=== PATIENT | male | born 1955 | race Caucasian/White ===

== ENCOUNTER 2016-12-03 10:49 | Inpatient (IN) | payer BC ==
--- NOTE | 2016-10-24 12:28 | PAT Medication Instructions ---
Service Date Oct 24, 2016. Current Home Medication List Fexofenadine Hcl (Beatrice Allergy), 1 TAB PO PRN Lisinopril (Prinivil), 20 MG PO QAM Meloxicam (Mobic), 15 MG PO QAM Montelukast Sodium (Montelukast Sodium), 1 TAB PO PRN Pantoprazole (Protonix), 40 MG PO QAM Tamsulosin Hcl (Flomax), 0.4 MG PO QAM [L Lysine], 1,000 MG PO PRN Medication Instructions For Your Scheduled Surgery - Check with your surgeon for instructions regarding: Meloxicam (Mobic), 15 MG PO QAM - Hold the following medications the morning of surgery: Lisinopril (Prinivil), 20 MG PO QAM Tamsulosin Hcl (Flomax), 0.4 MG PO QAM [L Lysine], 1,000 MG PO PRN Fexofenadine Hcl (Beatrice Allergy), 1 TAB PO PRN Montelukast Sodium (Montelukast Sodium), 1 TAB PO PRN - Take the following medications the morning of surgery with a sip of water: Pantoprazole (Protonix), 40 MG PO QAM If you have any questions please call us at [phone] or [phone] or [phone]
--- NOTE | 2016-10-24 13:17 | DIAGNOSTIC IMAGING REPORT ---
CHEST 2 VIEWS ROUTINE CLINICAL HISTORY: PAT preoperative evaluation COMPARISON STUDY: 03/07/2015 FINDINGS: The bones soft tissues and hemidiaphragms are normal. The cardiomediastinal silhouette is normal. The lungs are clear. The pulmonary vasculature is normal. IMPRESSION: Negative chest. The above report was generated using voice recognition software. It may contain grammatical, syntax or spelling errors. Electronically signed by: Torey Salas M.D. 10/24/2016 1:16 PM Dictated Date/Time: 10/24/2016 1:16 PM
[2016-10-24 13:59] LABS: BASO % 0.2 %; BASO ABS # 0.01 K/uL (0-0.2); COMPLETE YES; EOS % 2.1 %; HEMATOCRIT 43.2 % (42-52); IG% 0.2 %; LYMPH % 29.4 %; LYMPH ABS # 1.57 K/uL (1.2-3.4); MEAN CELL VOLUME 90.9 fL (80-100); MEAN CORPUSCULAR HEMOGLOBIN 30.1 pg (25-34); MEAN CORPUSCULAR HGB CONC 33.1 g/dl (32-36); MEAN PLATELET VOLUME 10.6 fL (7.4-10.4); MONO % 9.4 %; NEUT % 58.7 %; PLATELET COUNT 211 K/uL (130-400); RED BLOOD COUNT 4.75 M/uL (4.7-6.1); WHITE BLOOD COUNT 5.34 K/uL (4.8-10.8)
[2016-10-24 14:02] LABS: ESTIMATED AVERAGE GLUCOSE 117 mg/dl; HA1C FLAG Normal (Normal)
[2016-10-24 14:09] LABS: INR 0.9 (0.9-1.1); PARTIAL THROMBOPLASTIN RATIO 1.1; PROTHROMBIN TIME (PATIENT) 10.1 SECONDS (9.0-12.0)
[2016-10-24 14:18] LABS: BUN/CREATININE RATIO 31.2 (10-20); CALCIUM 8.8 mg/dl (8.5-10.1); CREATININE 0.9 mg/dl (0.60-1.40); POTASSIUM 3.7 mmol/L (3.5-5.1)
[2016-10-24 14:28] LABS: URINE APPEARANCE CLEAR (CLEAR); URINE BILIRUBIN NEG (NEG); URINE COLOR YELLOW; URINE EPITHELIAL CELL AUTO 0-5 /lpf (0-5); URINE NITRITE NEG (NEG); URINE SPECIFIC GRAVITY 1.023 (1.000-1.030); UROBILINOGEN NEG (NEG); ZZUR CULT IF INDIC CLEAN CATCH NO
[2016-10-24 14:33] LABS: MANUAL MICROSCOPIC REQUIRED? NO; REVIEW REQ? NO
--- NOTE | 2016-12-02 17:16 | HISTORY & PHYSICAL EXAMINATION ---
DATE OF ADMISSION: 12/03/2016 ADMISSION HISTORY AND PHYSICAL CHIEF COMPLAINT: Chronic right shoulder pain. HISTORY OF PRESENT ILLNESS: This is a 61-year-old male patient of Dr. Taveras'patrick complaining of chronic right shoulder pain, longstanding, now progressively getting worse. The patient has failed conservative treatment and wishes to proceed with a right shoulder resurfacing hemiarthroplasty and distal clavicle excision. PAST MEDICAL HISTORY: Hypertension, sleep apnea, osteoarthritis, spine problems, neck problems, sciatica, kidney stones. SOCIAL HISTORY: Nonsmoker, occasional drinker. PAST SURGICAL HISTORY: Tonsillectomy, 3 knee surgeries, 2 back surgeries, appendectomy, kidney stones, brain surgery and 3 shoulder surgeries. REVIEW OF SYSTEMS: The patient complains of chronic right shoulder pain. Otherwise, denies any shortness of breath, chest pain, nausea, vomiting or joint complaints. FAMILY HISTORY: Noncontributory. MEDICATIONS: Meloxicam 15 mg, tamsulosin 0.4 mg, lisinopril 20 mg, pantoprazole 40 mg, venlafaxine 180 mg, montelukast 10 mg, vitamin D3 and a lysine daily. ALLERGIES: No known drug allergies. He IS ALLERGIC TO GRASS TREE, OATS, cats, salmon, peas. PHYSICAL EXAMINATION: GENERAL: Well-developed, well-nourished 61-year-old male in no acute distress. He is alert and oriented x3 and pleasant. HEENT: Normocephalic, atraumatic. Extraocular motions are intact. Pupils are equal and reactive to light. HEART: Regular rate and rhythm, no murmurs appreciated. LUNGS: Clear. ABDOMEN: Soft, nontender, bowel sounds are present. EXTREMITIES: Right shoulder reveals active range of motion of 140 degrees of forward elevation, only 40 degrees of abduction. The patient has AC joint tenderness. He has crepitation with passive range of motion. He has 3+/5 for his strength globally. NEUROLOGIC: Neurovascularly, he is intact in his right upper extremity. DIAGNOSES: Right shoulder end-stage osteoarthritis and acromioclavicular osteoarthritis. He also has a history of hypertension, sleep apnea, osteoarthritis, spine problems, neck problems, sciatica, and kidney stones. PLAN: The patient was advised of his diagnosis. Indications, risks, benefits, and postop course have all been reviewed. The patient wishes to proceed with a right shoulder resurfacing hemiarthroplasty and distal clavicle excision. Necessary consent forms, preoperative testing and clearances will be obtained. LAVERNED
[~2016-12-03] VITALS: Ht 185.4 cm; Wt 102.7 kg
[2016-12-03] VITALS (7 sets, daily range): BP systolic 121–148; BP diastolic 79–98; PULSE 69–94; TEMP 36.4–36.7; O2SAT 90–95; Ht 185.4 cm; Wt 102.7 kg
[~2016-12-03 10:49] MED LIST: ACETAMINOPHEN 500 MG TAB PO SCH; CEFAZOLIN 2000 MG/60 ML D5W 60 ML IV SCH; CeleBREX 200 MG CAP PO SCH; DEXAMETHASONE 4 MG TAB PO SCH; FAMOTIDINE 20 MG TAB PO SCH; FEXO1TAB49 PO; GABAPENTIN 300 MG CAP PO SCH; L LYSINE PO; LACTATED RINGER'S 1000ML 1,000 ML IV SCH; LACTATED RINGER'S 1000ML IV SCH; LISI20TA3 PO; MELO7.5T5 PO; METOCLOPRAMIDE HCL 10 MG TAB PO SCH; MONT1TAB5 PO; PANT1TAB48 PO; ROPIVACAINE 0.5% 5 MG/ML 30 ML VIAL ONE; SCOPOLAMINE 1.5 MG TDSY TD SCH; TAMS0.4C38 PO
[2016-12-03] MEDS ORDERED: ATROPINE SULFATE 0.1 MG/ML 5ML SYR IV PRN (11:15)
[2016-12-03] MEDS ORDERED: FENTANYL CITRATE INJ 50 MCG/1 ML 2 ML VIAL IV PRN (11:15)
[2016-12-03] MEDS ORDERED: EpHEDrine SULFATE INJ 50 MG/ML AMP IV PRN (11:15)
[2016-12-03] MEDS ORDERED: ONDANSETRON INJ 2 MG/ML 2 ML VIAL IV PRN ×2 (11:15→18:15)
--- NOTE | 2016-12-03 13:27 | History & Physical Bridge Note ---
H&P Re-Evaluation Bridge Note: I have examined the patient, reviewed the History & Physical and in the interval since the performance of the History & Physical I have noted the following changes of clinical significance: No changes noted
[2016-12-03] MEDS ORDERED: BACITRACIN 50000 UNIT VIAL ONE (14:04)
[2016-12-03] MEDS ORDERED: EpINEphrine HCL INJ 1 MG/ML 5ML SYRINGE ONE (14:06)
[2016-12-03] MEDS ORDERED: MIDAZOLAM HCL 1 MG/ML 2ML VIAL ONE (14:08)
[2016-12-03] MEDS ORDERED: FENTANYL CITRATE INJ 50 MCG/1 ML 2 ML VIAL ONE ×2 (14:08→14:23)
[2016-12-03] MEDS ORDERED: LIDOCAINE HCL 2% 2 ML VIAL (20MG/ML) ONE (14:22)
[2016-12-03] MEDS ORDERED: PROPOFOL IV EMULSION 10 MG/ML 20 ML VIAL IV ONE (14:22)
[2016-12-03] MEDS ORDERED: ROCURONIUM BROMIDE 10 MG/ML 5 ML VIAL IV ONE (14:22)
[2016-12-03] MEDS ORDERED: ONDANSETRON INJ 2 MG/ML 2 ML VIAL ONE (15:32)
[2016-12-03] MEDS ORDERED: GLYCOPYRROLATE INJ 0.2 MG/ML VIAL ONE (15:32)
[2016-12-03] MEDS ORDERED: NEOSTIGMINE METHYLSULFATE 5 MG/5 ML SYR ONE (15:32)
[2016-12-03] MEDS ORDERED: DEXAMETHASONE SOD INJ 4 MG/ML VIAL ONE (15:32)
[2016-12-03] MEDS ORDERED: METOCLOPRAMIDE HCL INJ 5 MG/ML 2 ML VIAL ONE (15:32)
[2016-12-03] MEDS ORDERED: NALOXONE HCL 0.4 MG/1 ML VIAL/CARP IV PRN (18:15)
[2016-12-03] MEDS ORDERED: LYSINE 1000 MG PO SCH (18:15)
[2016-12-03] MEDS ORDERED: BISACODYL 10 MG SUPP PR PRN (18:15)
[2016-12-03] MEDS ORDERED: ZOLPIDEM TARTRATE 5 MG TAB PO PRN (18:15)
[2016-12-03] MEDS ORDERED: SOD PHOSPHATE/SOD BIPHOSPHATE ENEMA 132 ML BTL PR PRN (18:15)
[2016-12-03] MEDS ORDERED: MAGNESIUM HYDROXIDE SUSP 30 ML UDC PO PRN (18:15)
[2016-12-03] MEDS ORDERED: METOCLOPRAMIDE HCL INJ 5 MG/ML 2 ML VIAL IV PRN (18:15)
[2016-12-03] MEDS ORDERED: FEXOFENADINE HCL 180 MG TAB PO PRN (18:15)
--- NOTE | 2016-12-03 18:26 | [facility] Post Operative Brief Note ---
Immediate Operative Summary Operative Date Dec 03, 2016. Pre-Operative Diagnosis Right shoulder end-stage osteoarthritis and acromioclavicular osteoarthritis Post-Operative Diagnosis Right shoulder end-stage osteoarthritis and acromioclavicular osteoarthritis,biceps trendinopathy and glenoid labral tears Procedure(s) Performed Right Shoulder Resurfacing Yoni-Arthoplasty Distal Clavicle Excision, Right Bicep Tenodesis,labral debridement. Surgeon Dr. Taveras Customizer Surgeon(s) Torey Bowser PA-C Estimated Blood Loss 75ml Findings as above Specimens A: Right distal clavicle Drains 2 hemovac Anesthesia general and regional Disposition Recovery Room / PACU
--- NOTE | 2016-12-03 18:39 | Anesthesiology Progress Note ---
Anesthesia Post Op Note Date & Time Dec 03, 2016 at 18:39 Vital Signs Pain Intensity: 0 Vital Signs Past 12 Hours Date Time Temp Pulse Resp B/P (MAP) Pulse Ox O2 Delivery O2 Flow Rate FiO2 12/03/16 18:30 78 16 144/81 95 Oxymask 3 12/03/16 18:20 85 16 148/88 95 Oxymask 3 12/03/16 18:10 78 16 152/95 95 Oxymask 5 12/03/16 18:04 36.0 83 16 129/88 96 Oxymask 5 12/03/16 11:15 36.6 69 20 147/98 95 Room Air Notes Mental Status: alert / awake / arousable, participated in evaluation Pt Amnestic to Procedure: Yes Nausea / Vomiting: adequately controlled Pain: adequately controlled Airway Patency, RR, SpO2: stable & adequate BP & HR: stable & adequate Hydration State: stable & adequate Anesthetic Complications: no major complications apparent
--- NOTE | 2016-12-03 18:43 | DIAGNOSTIC IMAGING REPORT ---
R SHOULDER MIN 2 VIEWS ROUTINE CLINICAL HISTORY: Post shoulder surgery postoperative evaluation COMPARISON: None. DISCUSSION: Right shoulder hemiarthroplasty. Alignment is anatomic. Surgical drains are in position. Expected soft tissue postoperative change. IMPRESSION: Anatomic alignment status post right shoulder hemiarthroplasty. The above report was generated using voice recognition software. It may contain grammatical, syntax or spelling errors. Electronically signed by: Torey Salas M.D. 12/03/2016 6:42 PM Dictated Date/Time: 12/03/2016 6:41 PM
[2016-12-03] MEDS: MoRPHine SULFATE 2 MG/ML CARP IV PRN (19:24)
[2016-12-03] MEDS: D5W AND 1/2NSS + 20MEQ KCL 1,000 ML IV SCH (19:44)
[2016-12-03] MEDS: CHECK SCOPOLAMINE PATCH PLACEMENT SCH (19:44)
[2016-12-03] MEDS ORDERED: MONTELUKAST SOD 10 MG TAB PO PRN (21:00)
[2016-12-03] MEDS ORDERED: OXYCODONE HCL 10 MG TABCR (OXYCONTIN) PO SCH (21:00)
[2016-12-03] MEDS: DOCUSATE SODIUM 100 MG CAP PO SCH (21:03)
[2016-12-03] MEDS: CEFAZOLIN IV 2,000 MG in DEXTROSE 5% 50ML 50 ML IV SCH (22:27)
[2016-12-03] MEDS: ACETAMINOPHEN 500 MG TAB PO SCH (22:28)
--- NOTE | 2016-12-03 22:43 | Medical Consult ---
Consultation Date of Consultation: Dec 03, 2016. Attending Physician: Julio Cesar Taveras M.D. Reason for Consultation: Medical Management History of Present Illness Mr Mckeon is a pleasant 61 year old male with history of HTN, BPH, GERD, seasonal allergies, who is s/p a right shoulder resurfacing hemiarthroplasty and distal clavicle excision today. Primary team has consulted hospitalist service for medical management. The patient states at this time that feels overall well, notes some expected discomfort to the right shoulder that is overall well controlled with his current pain regimen. He denies any other complaints including chest pain, shortness of breath, coughing, wheezing, or palpitations. He notes a good appetite and was able to eat dinner without any difficulty. He is not passing gas and has not yet had a bowel movement. He denies any urinary symptoms at this time. A 10 point review of systems was negative unless stated above. Past Medical/Surgical History HTN BPH GERD Seasonal allergies Osteoarthritis Surgeries - Intracranial cyst excision - Lumbar spine surgery - Cervical spine surgery - Left shoulder surgery - Appendicectomy - Tonsillectomy Social History Smoking Status: Former Smoker Alcohol Use: occasionally Drug Use: none Marital Status: Housing Status: lives with family Occupation Status: employed Allergies Coded Allergies: Dog Dander (Verified Allergy, Unknown, CAT DOG DANDER-ITCHY EYES, STUFFY NOSE, 12/03/16) Grass (Verified Allergy, Unknown, GRASS,TREES CONGESTION, 12/03/16) NO KNOWN DRUG ALLERGIES (Verified Allergy, Unknown, NONE, 12/03/16) POLLEN (Verified Allergy, Unknown, ITCHY EYES, STUFFY NOSE, 12/03/16) Home Medications Reported Home Medications Medications Dose Route/Sig Max Daily Dose Days Date Category [L Lysine] 1,000 Mg PO PRN 10/24/16 Reported Beatrice Allergy (Fexofenadine Hcl) 180 Mg Tab 1 Tab PO PRN 14 10/24/16 Reported Mobic (Meloxicam) 7.5 Mg Tab 15 Mg PO QAM 10/24/16 Reported Montelukast Sodium 10 Mg Tab 1 Tab PO PRN 90 03/07/15 Reported Prinivil (Lisinopril) 20 Mg Tab 20 Mg PO QAM 03/07/15 Reported Protonix (Pantoprazole) 40 Mg Tab 40 Mg PO QAM 03/07/15 Reported Flomax (Tamsulosin Hcl) 0.4 Mg Cap 0.4 Mg PO QAM 03/07/15 Reported Current Inpatient Medications Current Inpatient Medications Medications (Trade) Dose Ordered Sig/Elliot Route Start Time Stop Time Status Last Admin Dose Admin Miscellaneous (Remove Transderm-Scop Patch) 1 ea Q72H N/A 12/06/16 06:00 12/06/16 06:01 Miscellaneous Information (Check Scopolamine Patch Placement) 1 ea QS N/A 12/03/16 16:00 12/06/16 05:59 12/03/16 19:44 1 EA Fexofenadine HCl (Beatrice Tab) 180 mg DAILY PRN PO 12/03/16 18:15 01/02/17 18:14 Lisinopril (Zestril Tab) 20 mg QAM PO 12/04/16 09:00 01/03/17 08:59 Montelukast Sodium (Singulair Tab) 10 mg HS PRN PO 12/03/16 21:00 01/02/17 20:59 Tamsulosin HCl (Flomax Cap) 0.4 mg QAM PO 12/04/16 09:00 01/03/17 08:59 Diphenhydramine HCl (Benadryl Cap) 25 mg Q8 PRN PO 12/03/16 18:15 01/02/17 18:14 Zolpidem Tartrate (Ambien Tab) 5 mg HSZ PRN PO 12/03/16 18:15 01/02/17 18:14 Metoclopramide HCl (Reglan Inj) 10 mg Q6H PRN IV 12/03/16 18:15 01/02/17 18:14 Ondansetron HCl (Zofran Inj) 4 mg Q6H PRN IV 12/03/16 18:15 01/02/17 18:14 Pantoprazole Sodium (Protonix Tab) 40 mg QAM PO 12/04/16 09:00 01/03/17 08:59 Potassium Chloride/Dextrose/ Sod Cl 1,000 ml @ 100 mls/hr Q10H IV 12/03/16 19:30 12/04/16 12:00 12/03/16 19:44 100 MLS/HR Oxycodone HCl (Roxicodone Immediate Rel Tab) `1-2 TABS FOR PAIN `1 TAB... Q4H PRN PO 12/03/16 18:15 12/17/16 18:14 Oxycodone HCl (Oxycontin Tab) 10 mg Q12 PO 12/03/16 21:00 12/17/16 20:59 12/03/16 21:03 10 MG Acetaminophen (Tylenol Tab) 1,000 mg Q8 PO 12/03/16 22:00 01/02/17 21:59 12/03/16 22:28 1,000 MG Morphine Sulfate (MoRPHine SULFATE INJ) 2 mg Q2H PRN IV 12/03/16 18:15 12/17/16 18:14 12/03/16 19:24 2 MG Naloxone HCl (Narcan Inj) 0.1 mg Q2M PRN IV 12/03/16 18:15 01/02/17 18:14 Magnesium Hydroxide (Milk Of Magnesia Susp) 30 ml Q6H PRN PO 12/03/16 18:15 01/02/17 18:14 Bisacodyl (Dulcolax Supp) 10 mg DAILY PRN IA 12/03/16 18:15 01/02/17 18:14 Sodium Biphosphate/ Sodium Phosphate (Fleet Enema) 132 ml DAILY PRN IA 12/03/16 18:15 01/02/17 18:14 Docusate Sodium (coLACE CAP) 100 mg BID PO 12/03/16 21:00 01/02/17 20:59 12/03/16 21:03 100 MG Multivitamins (Multivitamin Tab) 1 tab DAILY PO 12/04/16 09:00 01/03/17 08:59 Cefazolin Sodium 2000 mg/Dextrose 60 ml @ 100 mls/hr Q8H IV 12/03/16 22:00 12/04/16 06:35 12/03/16 22:27 100 MLS/HR Morphine Sulfate (MoRPHine SULFATE INJ) 4 mg Q2H PRN IV 12/03/16 19:00 12/17/16 18:59 Review of Systems A 10 point review of systems was negative unless stated above. Physical Exam Date Time Temp Pulse Resp B/P (MAP) Pulse Ox O2 Delivery O2 Flow Rate FiO2 12/03/16 21:47 36.4 93 17 121/81 (94) 91 Nasal Cannula 2.0 12/03/16 20:55 36.7 88 17 135/79 (97) 92 Room Air 12/03/16 19:50 36.6 80 17 138/84 (102) 91 Room Air 12/03/16 19:21 36.7 76 17 145/87 (106) 90 Room Air 12/03/16 18:55 Nasal Cannula 2.0 12/03/16 18:55 36.7 87 18 148/91 (110) 93 Nasal Cannula 2.0 12/03/16 18:55 93 Nasal Cannula 2.0 12/03/16 18:40 36.4 83 16 131/92 95 Nasal Cannula 2 12/03/16 18:30 78 16 144/81 95 Oxymask 3 12/03/16 18:20 85 16 148/88 95 Oxymask 3 12/03/16 18:10 78 16 152/95 95 Oxymask 5 12/03/16 18:04 36.0 83 16 129/88 96 Oxymask 5 12/03/16 11:15 36.6 69 20 147/98 95 Room Air General Appearance: WD/WN, no apparent distress Head: normocephalic, atraumatic Eyes: PERRL, EOMI ENT: hearing grossly normal, pharynx normal Neck: supple, no adenopathy, no JVD Respiratory/Chest: chest non-tender, no respiratory distress, + pertinent finding (biltarally mild diminished breath sounds) Cardiovascular: regular rate, rhythm, no gallop, no murmur Abdomen/GI: soft, no organomegaly, + pertinent finding (reduced bowel sounds) Back: no CVA tenderness, no muscle spasm Extremities/Musculoskelatal: normal inspection, no calf tenderness, no pedal edema, + pertinent finding (bandaged right shoudler with drain; bloody contents in drain) Neurologic/Psych: alert, normal mood/affect, oriented x 3 Skin: normal color, warm/dry, no rash Lymphatic: no adenopathy Laboratory Results Last 24 Hours Test 12/03/16 19:36 Assessment & Plan 61 year old male s/p right shoulder surgery today with distal clavicle resection. He is doing well with no acute issues at this time. Our recommendations are as follows Right Shoulder surgery with Distal clavicle resection - Per primary team - Recommend holding any NSAID use until repeat AM Cr shows stable renal function Hypertension - Repeat BMP in AM - Hold lisinopril until repeat Cr to ensure renal function is stable continue on BPH - Continue Flomax GERD - Continue Pantoprazole Seasonal Allergies - Continue home meds as needed DVT Prophylaxis - SCD Knee, RHONDA Hose - Pharmacological prophylaxis per primary team Disposition - Med/Surg - OT and PT evaluations per primary team Resident Physician Supervision Note: pt seen/examined independently. I discussed the case with the resident and agree with the findings and plan as documented in the note. Any exceptions or clarifications are listed here: 61 y/o M post R distal clavicle resection - we are asked to consult due to history of HTN and for post-op management Pain is well controlled post-op - denies N/V, SOB, lighthead OE AAO x 3 S1,2 R CATB NT, ND No CCE P: Will recheck BMP AM then restart HAI PT/OT to discretion of orthopedics Documented By: Tyrel Valdez
[2016-12-04] VITALS (8 sets, daily range): BP systolic 153–182; BP diastolic 87–104; PULSE 71–79; TEMP 36.5–37.3; O2SAT 93–96
[2016-12-04] MEDS: CHECK SCOPOLAMINE PATCH PLACEMENT SCH ×3 (00:02→16:00)
--- NOTE | 2016-12-04 01:01 | OPERATIVE REPORT ---
DATE OF OPERATION: 12/03/2016 INDICATION FOR PROCEDURE: The patient is a 61-year-old male with chronic progressive osteoarthritis in his right shoulder. He has osteoarthritis in both AC joint and glenohumeral joint, both grade 4, end stage, [id number]. He has good strength and intact rotator cuff. PREOPERATIVE DIAGNOSES: End-stage glenohumeral osteoarthritis, right shoulder, and end-stage acromioclavicular joint arthritis, right shoulder. POSTOPERATIVE DIAGNOSES: Same including significant biceps tendinopathy and osteophytes bicipital groove causing biceps impingement. Degenerative glenoid labral tear with unstable labral flaps. PROCEDURE: Right shoulder resurfacing hemiarthroplasty using the Arthrosurface humeral head component and biceps tenodesis and distal clavicle resection and glenoid labral tear debridement. SURGEON: Dr. Taveras. SPECIAL EFFECTS ARTIST: Torey Bowser PA-C. ANESTHESIA: Regional block and general. OPERATIVE PROCEDURE: The patient was taken to the operating room, anesthetized with regional block and general anesthetic. He was positioned on the operating room table in about 30-degree beach chair position. A towel roll was placed in the medial border of his right scapula. He was translated to the right side of the bed, so his shoulder could be manipulated off the bed as necessary. His head was placed on a foam headrest. He had protective eyewear placed. He had TEDs and SCDs placed. His right shoulder exam demonstrated 120 degrees forward elevation, 70 degrees of abduction, external rotation to about 40 degrees. He clearly had [id number] crepitation. He had prominent AC joint. After his shoulder was sterilely prepped and draped with ChloraPrep, an anterior deltopectoral approach was performed. A longitudinal incision was made in the deltopectoral interval. Skin was incised sharply. Subcutaneous flaps were elevated. The cephalic vein was dissected out and retracted laterally with the deltoid. Deltoid retracted laterally and pectoralis medially. The upper centimeter of the pectoralis was released for inferior exposure. The biceps tendon sheath was opened up and the patient had marked thickened biceps tenosynovitis extending into the bicipital groove where there was a large bone spur at the medial aspect of the bicipital groove. The biceps tendon was tenodesed to the pectoralis tendon with a [id number] #2 FiberWire suture and then proximal biceps was resected, the bicipital bone spurs were resected, and the thickened biceps tenosynovitis was resected. The bursa over the rotator cuff was resected and the rotator cuff was noted to be completely intact, although he did have joint effusion and some bulging in the area of the rotator interval due to synovitis in the joint. The clavipectoral fascia was divided at the lateral margin of conjoined tendon, extended up to the CA ligament which was preserved. The bursa over the subscapularis and rotator cuff were resected. A self-retaining retractor was placed. The circumflex vessels were identified, tied off with silk ties and divided laterally. The subscapularis muscle fibers were split at the level of the circumflex vessels, divided down to the capsule, reflected off the inferior capsule with a Kitner soft tissue elevator and a blunt Hohmann retractor was placed to protect the axillary nerve, the axillary nerve was identified with tug test. Another blunt Hohmann retractor was placed superiorly. Rotator interval was opened up and extended laterally. The subscapularis tendon was then taken down transtendinous incision, leaving a cup of tissue for repair on the lesser tuberosity. #1 Vicryl traction suture was placed into the subscapularis tendon. The capsule was then released off the neck of the inferior humerus and this revealed a large inferior humeral osteophyte extending from anterior to posterior. Blunt Hohmann retractor was readjusted and the humerus was gradually externally rotated to expose large osteophyte. This was removed with a series of artist chisels and rongeur, and the Hernandez elevator was used to release the inferior capsule off the neck of the humerus right at the articular margin area. At this time, the humeral head was retracted posterior to the glenoid to some extent to expose the glenoid. Glenoid had exposed bone, concentric wear. There was a very large flap at the posterior labrum that was torn, this was debrided. There were 2 flaps of the anterior labrum, those were debrided back to stable edge, and the remainder of the biceps tendon was released off the superior labrum and removed at this time. At this time, we did do an anterior capsular release because he had decreased external rotation. This capsule was released under direct visualization, leaving the labrum intact and the rotator interval was released down to the capsular release, so we had a 360-degree release of the subscapularis. The inferior capsule was left intact. The humerus was then exposed with retractors and the humerus was sized for a 56 x 52 mm humeral head. A drill hole was made into the central portion of the humeral head to match the wear pattern and centralized the location of the implant. We went ahead and placed a screw in position initially at appropriate depth for the reamer. Over the guidepin, we used the reamer for the 52 mm component down until it was fully seated. Excess osteophytes circumferentially removed with the rongeur, maintaining the intact rotator cuff. We also identified that there was no notching of the neck with full reaming. The trial was then placed in position and pinned in position. Then, we used the appropriate reamers to ream the central humeral head for the screw. The screw was then inserted into the central humeral head until seated at the appropriate depth. Then, all the bone debris was irrigated out of the joint copiously. With good fixation of the screw, we went ahead and placed on the final humeral head component after copiously irrigating the humeral head that was free of any debris. The final component was the Arthrosurface humeral head 56 x 52 mm and the tapered post that we had placed was the 12 mm tapered post. There was good tight press fit and good fixation of the Morrison taper on the screw. There was anatomic reconstruction of the articular surface. The humerus was reduced to the glenoid and then we took the arm through range of motion, there was good range of motion and stability. After copious irrigation, attention was then taken to the distal clavicle excision. A saber incision was made over the distal clavicle. Skin was incised sharply in a longitudinal fashion. Subcutaneous flaps were elevated. A transverse incision was made over the AC joint, the patient had hypertrophic AC joint. Subperiosteal dissection was performed around the distal clavicle. 1 cm distal clavicle was resected with an oscillating saw. All the osteophytes at the edges were smoothed down with a rongeur. After copious irrigation, the deltotrapezial fascia was repaired with [id number] #2 FiberWire sutures. I then repaired the subscapularis at this point. After copious irrigation of the joint again, subscapularis was repaired with 2 Healicoils for medial row fixation, 1 footprint for lateral fixation. We used horizontal mattress sutures with the Healicoils in the tails, 1 tail from each tied sutures was passed at 5.5 mm footprint laterally. We also did [id number] #2 FiberWire suture soft tissue repair for lateral row repair. We repaired the rotator interval in maximal external rotation with [id number] #2 FiberWire sutures. The repair was secured through about 55 degrees of external rotation, 90 degrees of abduction and 140-150 degrees of forward elevation. After further irrigation, the remainder of the pectoralis split was repaired with [id number] #2 FiberWire, reinforcing the biceps tenodesis, placing the sutures back through the biceps. Two Hemovac drains were placed. Subcutaneous tissues were closed with interrupted 2-0 Vicryl, skin was closed with teresita. Sterile dressings applied and a shoulder immobilizer was placed. Torey Bowser PA-C, was my food and beverage assistant manager. He functioned as child welfare assistant for the entire procedure. He assisted in patient positioning, prepping, draping, arm positioning, instrument management, soft tissue retraction throughout the procedure, and he performed the subcutaneous and skin closure and will participate in postoperative care of the patient. I attest to the content of the Intraoperative Record and any orders documented therein. Any exception s are noted below.
[2016-12-04] MEDS: MoRPHine SULFATE 2 MG/ML CARP IV PRN ×2 (02:30→04:02)
[2016-12-04] MEDS: OXYCODONE HCL IR 5 MG TAB (IMMEDIATE RELEASE) PO PRN ×3 (02:30→16:34)
[2016-12-04] MEDS: CEFAZOLIN IV 2,000 MG in DEXTROSE 5% 50ML 50 ML IV SCH (05:32)
[2016-12-04] MEDS: D5W AND 1/2NSS + 20MEQ KCL 1,000 ML IV SCH (05:33)
[2016-12-04] MEDS: ACETAMINOPHEN 500 MG TAB PO SCH ×3 (05:40→21:05)
[2016-12-04] MEDS: MoRPHine SULFATE 4 MG/ML 1 ML CARP\\VIAL IV PRN ×2 (06:05→10:48)
[2016-12-04 06:12] LABS: HEMATOCRIT 41.5 % (42-52); MEAN CORPUSCULAR HEMOGLOBIN 30.4 pg (25-34); MEAN CORPUSCULAR HGB CONC 33.7 g/dl (32-36); MEAN PLATELET VOLUME 10.1 fL (7.4-10.4); PLATELET COUNT 217 K/uL (130-400); RED BLOOD COUNT 4.61 M/uL (4.7-6.1); WHITE BLOOD COUNT 11.07 K/uL (4.8-10.8)
[2016-12-04 06:42] LABS: BUN/CREATININE RATIO 20.8 (10-20); CALCIUM 8.9 mg/dl (8.5-10.1); CREATININE 0.9 mg/dl (0.60-1.40); POTASSIUM 3.7 mmol/L (3.5-5.1)
--- NOTE | 2016-12-04 06:57 | Family Medicine Progress Note ---
Progress Note Date of Service Dec 04, 2016. Subjective Pt evaluation today including: conversation w/ patient, physical exam, chart review, lab review The patient was seen and examined at bedside. Post op Day #[address] Patient is resting comfortably in bed. Says his right shoulder was hurting him but after his pain meds the pain is tolerable . There is a drain in place draining bloody fluid. Plan of care was described to the patient and all questions were answered. 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), + problem reported (right should pain s/p procedure), No swelling, No calf pain Male : + problem reported (has peed, no montgomery in place, is ambulating), No dysuria Endo: No fatigue Objective Physical Exam General Appearance: WD/WN, no apparent distress ENT: normal ENT inspection Neck: supple, no JVD Respiratory/Chest: chest non-tender, lungs clear, normal breath sounds, no respiratory distress, no accessory muscle use Cardiovascular: regular rate, rhythm, no edema, no gallop, no JVD, no murmur Abdomen: normal bowel sounds, non tender, soft, no organomegaly, no pulsatile mass Extremities: normal range of motion, no pedal edema, no calf tenderness, + pertinent finding (defer exam of right shoulder to Dr. Taveras, appears normal post of pain and tenderness.) Neurologic/Psychiatric: no motor/sensory deficits, alert, normal mood/affect, oriented x 3 Skin: no rash Assessment and Plan 61M s/p right shoulder surgery today with distal clavicle resection on 2016. PCP is in [place]. Pt reports that most of his hospitilizations are MSK related (L knee replacement, R shoulder surgery). AM labs show excellent renal function. Pt is tolerating diet, ambulating, waiting for first BM, received Colace today. Pain is well controlled. Right Shoulder surgery with Distal clavicle resection - Per primary team - Can resume all NSAIDS. - Oxycodone 20mg BID PRN + Oxy 10mg Q4H PRN (1-2 tabs based on a pain scale) Hypertension - High post op, trending down. - Renal Function OK. - Restarted Lisinopril. - If DC today we will defer HTN management to primary care doctor in [place], elevated BP could be transiently reactive to pain. Do not want to overtreat BP. Pt has no HTN emergency symptoms (OBRIEN, photophobia, nausea, vomiting). BPH - Continue Flomax GERD - Continue Pantoprazole Seasonal Allergies - Continue home meds as needed DVT Prophylaxis - SCD Knee, RHONDA Hose - Pharmacological prophylaxis per primary team Disposition - Med/Surg - OT and PT evaluations per primary team FULL CODE Thank you for this consult. We will continue to follow. Resident Involvement: Resident Care Provided Care Provided: Adult Hospital Medicine
[2016-12-04] MEDS: LISINOPRIL 20 MG TAB PO SCH (07:23)
--- NOTE | 2016-12-04 08:21 | Orthopedic Progress Note ---
Orthopedic Progress Note Date of Service Dec 04, 2016. Subjective Post OP Day: 1 Reports: feeling well, Denies: chest pain, SOB, nausea / vomiting, light headedness, calf pain Additional Notes: Main c/o is pain this AM. BP elevated. Objective N/V intact, capillary refill less than 2 sec., dressing C/D/I, A&O x3 Sling in tact, Fingers mobile. Date Time Temp Pulse Resp B/P (MAP) Pulse Ox O2 Delivery O2 Flow Rate FiO2 12/04/16 07:57 172/104 (126) 12/04/16 07:18 36.6 78 16 182/101 (128) 93 Nasal Cannula 2.0 12/04/16 03:44 36.5 71 16 162/98 (119) 93 Nasal Cannula 2.0 12/03/16 23:35 Nasal Cannula 2.0 12/03/16 23:00 36.5 94 18 138/90 (106) 92 Nasal Cannula 2.0 12/03/16 21:47 36.4 93 17 121/81 (94) 91 Nasal Cannula 2.0 12/03/16 20:55 36.7 88 17 135/79 (97) 92 Room Air 12/03/16 19:50 36.6 80 17 138/84 (102) 91 Room Air 12/03/16 19:21 36.7 76 17 145/87 (106) 90 Room Air 12/03/16 18:55 Nasal Cannula 2.0 12/03/16 18:55 36.7 87 18 148/91 (110) 93 Nasal Cannula 2.0 12/03/16 18:55 93 Nasal Cannula 2.0 12/03/16 18:40 36.4 83 16 131/92 95 Nasal Cannula 2 12/03/16 18:30 78 16 144/81 95 Oxymask 3 12/03/16 18:20 85 16 148/88 95 Oxymask 3 12/03/16 18:10 78 16 152/95 95 Oxymask 5 12/03/16 18:04 36.0 83 16 129/88 96 Oxymask 5 12/03/16 11:15 36.6 69 20 147/98 95 Room Air Laboratory Results 24 Hours: Test 12/04/16 05:43 Hematocrit 41.5 % Hemoglobin 14.0 g/dL Assessment & Plan Assessment: POD #1, Right shoulder resurfacing hemiarthroplasty, biceps tenodesis, DCE Plan: PT/ OT D/C planning- Home w OPPT when stable. As per medicine HTN Inhouse Planning Pain Management: Oxycontin, Morphine, PO Tylenol, Oxy IR DVT Prophylaxis: TEDs, SCDs Discharge Planning Discharge Planning: home with oppt Pain Management: Oxycontin, PO Tylenol, Oxy IR DVT Prophylaxis: TEDs Therapy: Physical Therapy, Occupational Therapy
--- NOTE | 2016-12-04 08:23 | Discharge Instructions ---
Discharge Instructions Date of Service Dec 04, 2016. Admission Reason for Admission: Right Shoulder Degenerative Joint Disease Discharge Discharge Diagnosis / Problem: Right shoulder resurfacing hemiarthroplasty, DCE , biceps tenodesis Discharge Goals Goal(s): Improve function Activity Recommendations Activity Limitations: as noted below . Instructions / Follow-Up Instructions / Follow-Up ACTIVITY RECOMMENDATIONS: SELF CARE INSTRUCTIONS AFTER TOTAL SHOULDER ARTHROPLASTY A. You may do daily exercises as taught in physical therapy while in hospital. No lifting with the operative arm. Please schedule your outpatient physical therapy appointment to begin within 2-3 days after leaving the hospital. Specific restrictions will be written on your physical therapy prescription that is provided to you. B. You are to wear your sling/immobilizer at all times EXCEPT when performing your daily exercises, participating in physical therapy and for hygiene purposes. C. You may perform dry, daily dressing changes. Please keep your incision covered. You may shower 48 hours after surgery. Do not apply soap or any ointment/ lotions directly over incision. Do not soak incision in bath tub/swimming pool. D. You may use ice as needed to operative shoulder. SPECIAL CARE INSTRUCTIONS: MEDICATION INSTRUCTIONS: *It is recommended you take Aspirin 325mg daily for four weeks post-op. VERY IMPORTANT TO READ AND REVIEW A. There are a few signs you need to watch for after you are home. Call [facility] at [phone] if you experience any of the followin. Increased severe shoulder pain. Some pain is expected especially when you exercise. 2. Increased swelling in you shoulder or arm; pain or swelling in either upper extremity. 3. Any fluid drainage from the incision. 4. Shortness of breath or chest pain. B. Please call [facility] at [phone] if you have any questions or concerns about your operation or recovery. C. Call your physician if: 1. Temperature is greater than 101 degrees (F). 2. Pain is not relieved by prescribed pain medications. 3. Increase drainage or redness from incision. 4. Unanswered questions or concerns. FOLLOW UP VISIT: Please call [facility] at [phone] to schedule a follow up appointment with Dr. Taveras or his PA in 12-14 days from your surgery date. Current Hospital Diet Patient's current hospital diet: Regular Diet Discharge Diet Recommended Diet: Regular Diet Procedures Procedures Performed: Right Shoulder Resurfacing Yoni-Arthoplasty Distal Clavicle Excision, Right Bicep Tenodesis,labral debridement. Pending Studies Studies pending at discharge: no Laboratory Results Hemoglobin A1c Test 10/24/16 12:39 Range/Units Estimated Average Glucose 117 mg/dl Hemoglobin A1c 5.7 H 4.5-5.6 % Medical Emergencies . Who to Call and When: Medical Emergencies: If at any time you feel your situation is an emergency, please call 911 immediately. . Non-Emergent Contact Non-Emergency issues call your: Primary Care Provider . "Provider Documentation" section prepared by Torey Bowser. . VTE Core Measure Inpt VTE Proph given/why not?: Keri Michele, SCD's [place] Drug Monitoring Program Search Results: patient reviewed within database, no issues identified
[2016-12-04] MEDS ORDERED: RXC5 PO (08:26)
[2016-12-04] MEDS ORDERED: OXYSR10 PO (08:26)
[2016-12-04] MEDS ORDERED: ACET-24 PO (08:26)
[2016-12-04] MEDS: TAMSULOSIN HCL 0.4 MG CAP PO SCH (08:39)
[2016-12-04] MEDS: DOCUSATE SODIUM 100 MG CAP PO SCH ×2 (08:39→21:04)
[2016-12-04] MEDS: MULTIVITAMIN TAB PO SCH (08:40)
[2016-12-04] MEDS: PANTOprazole SOD 40 MG TAB PO SCH (08:40)
[2016-12-04] MEDS: OXYCODONE HCL 20 MG TABCR (OXYCONTIN) PO SCH ×2 (08:50→21:04)
[2016-12-04] MEDS ORDERED: PANTOprazole SOD 40 MG TAB PO SCH (09:00)
--- NOTE | 2016-12-04 12:23 | Anesthesiology Progress Note ---
Anesthesia Post Op Note Date & Time Dec 04, 2016 at 12:23 Vital Signs Pain Intensity: 6.0 Vital Signs Past 12 Hours Date Time Temp Pulse Resp B/P (MAP) Pulse Ox O2 Delivery O2 Flow Rate FiO2 12/04/16 11:09 37.3 78 16 157/90 (112) 93 Room Air 12/04/16 08:32 158/92 (114) 12/04/16 08:32 Room Air 12/04/16 07:57 172/104 (126) 12/04/16 07:18 36.6 78 16 182/101 (128) 93 Nasal Cannula 2.0 12/04/16 03:44 36.5 71 16 162/98 (119) 93 Nasal Cannula 2.0 Notes Mental Status: alert / awake / arousable, participated in evaluation Pt Amnestic to Procedure: Yes Nausea / Vomiting: adequately controlled Pain: adequately controlled Airway Patency, RR, SpO2: stable & adequate BP & HR: stable & adequate Hydration State: stable & adequate Anesthetic Complications: no major complications apparent
[2016-12-05] MEDS: CHECK SCOPOLAMINE PATCH PLACEMENT SCH ×2 (00:08→08:58)
[2016-12-05] MEDS: ACETAMINOPHEN 500 MG TAB PO SCH (05:50)
[2016-12-05 06:45] LABS: HEMATOCRIT 39.5 % (42-52); MEAN CORPUSCULAR HEMOGLOBIN 30.3 pg (25-34); MEAN CORPUSCULAR HGB CONC 33.7 g/dl (32-36); MEAN PLATELET VOLUME 10.2 fL (7.4-10.4); PLATELET COUNT 201 K/uL (130-400); RED BLOOD COUNT 4.39 M/uL (4.7-6.1); WHITE BLOOD COUNT 9.25 K/uL (4.8-10.8)
[2016-12-05 07:06] LABS: BUN/CREATININE RATIO 24.1 (10-20); CALCIUM 8.5 mg/dl (8.5-10.1); CREATININE 0.76 mg/dl (0.60-1.40); POTASSIUM 3.3 mmol/L (3.5-5.1)
[2016-12-05 07:23] VITALS: BP 128/80; PULSE 116; TEMP 36.8; O2SAT 94
--- NOTE | 2016-12-05 08:10 | Orthopedic Progress Note ---
Orthopedic Progress Note Date of Service Dec 05, 2016. Subjective Post OP Day: 2 Reports: feeling well, pain controlled w PO medications, Denies: complaints, chest pain, SOB, nausea / vomiting, light headedness, calf pain Additional Notes: BP stable this AM Objective N/V intact, capillary refill less than 2 sec., incision C/D/I, A&O x3 Sling in tact, fingers mobile. Date Time Temp Pulse Resp B/P (MAP) Pulse Ox O2 Delivery O2 Flow Rate FiO2 12/05/16 07:23 36.8 116 19 128/80 (96) 94 Room Air 12/04/16 23:18 Room Air 12/04/16 22:45 36.9 79 18 153/88 (109) 96 Room Air 12/04/16 15:50 Room Air 12/04/16 14:52 36.8 78 17 167/93 (117) 93 Room Air 12/04/16 11:09 37.3 78 16 157/90 (112) 93 Room Air 12/04/16 08:32 158/92 (114) 12/04/16 08:32 Room Air Laboratory Results 24 Hours: Test 12/05/16 06:11 Hematocrit 39.5 % Hemoglobin 13.3 g/dL Assessment & Plan Assessment: POD #2, Right shoulder resurfacing hemiarthroplasty, biceps tenodesis, DCE Plan: PT/ OT D/C planning- Home w OPPT today. As per medicine HTN Inhouse Planning Pain Management: Oxycontin, Morphine, PO Tylenol, Oxy IR DVT Prophylaxis: TEDs, SCDs Discharge Planning Discharge Planning: home with oppt Pain Management: Oxycontin, PO Tylenol, Oxy IR DVT Prophylaxis: TEDs Therapy: Physical Therapy, Occupational Therapy
[2016-12-05] MEDS: TAMSULOSIN HCL 0.4 MG CAP PO SCH (08:59)
[2016-12-05] MEDS: MULTIVITAMIN TAB PO SCH (08:59)
[2016-12-05] MEDS: DOCUSATE SODIUM 100 MG CAP PO SCH (08:59)
[2016-12-05] MEDS: PANTOprazole SOD 40 MG TAB PO SCH (09:00)
[2016-12-05 09:02] VITALS: BP 147/92; PULSE 84
[2016-12-05] MEDS: LISINOPRIL 20 MG TAB PO SCH (09:02)
[2016-12-05] MEDS: OXYCODONE HCL 20 MG TABCR (OXYCONTIN) PO SCH (09:07)
[2016-12-05 10:33] VITALS: BP 147/92; PULSE 84; TEMP 36.8; O2SAT 94
[2016-12-05] MEDS ORDERED: POTASSIUM CHLORIDE 20 MEQ TABCR PO ONE (12:15)
[2016-12-05] MEDS: OXYCODONE HCL IR 5 MG TAB (IMMEDIATE RELEASE) PO PRN (12:31)
--- NOTE | 2016-12-05 15:50 | Family Medicine Progress Note ---
Progress Note Date of Service Dec 05, 2016. Subjective Pt evaluation today including: conversation w/ patient, physical exam, chart review, lab review The patient was seen and examined at bedside. Post op Day #2. Patient is resting comfortably in bed. R shoulder pain is now 1/10. Plan of care was described to the patient and all questions were answered. 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), + problem reported (right should pain s/p procedure), No swelling, No calf pain Male : + problem reported (has peed, no montgomery in place, is ambulating), No dysuria Endo: No fatigue Objective Physical Exam Notes: General Appearance: WD/WN, no apparent distress ENT: normal ENT inspection Neck: supple, no JVD Respiratory/Chest: chest non-tender, lungs clear, normal breath sounds, no respiratory distress, no accessory muscle use Cardiovascular: regular rate, rhythm, no edema, no gallop, no JVD, no murmur Abdomen: normal bowel sounds, non tender, soft, no organomegaly, no pulsatile mass Extremities: normal range of motion, no pedal edema, no calf tenderness, + pertinent finding (pain while moving the R. arm) Neurologic/Psychiatric: no motor/sensory deficits, alert, normal mood/affect, oriented x 3 Skin: no rash Assessment and Plan 61M s/p right shoulder surgery today with distal clavicle resection on 2016. PCP is in [place]. Pt reports that most of his hospitilizations are MSK related (L knee replacement, R shoulder surgery). AM labs show excellent renal function. Pt is tolerating diet, ambulating, waiting for first BM, received Colace today. Pain is well controlled. BP improved today, baseline is 120/80s. Right Shoulder surgery with Distal clavicle resection - Per primary team - Can resume all NSAIDS. - Oxycodone 20mg BID PRN + Oxy 10mg Q4H PRN (1-2 tabs based on a pain scale) Hypertension - High post op, trending down. - Renal Function OK. - Restarted Lisinopril. - New changed to BP regime, expect BP to normalize once pain goes away. - Recommend PCP follow up for BP in 3-4 weeks. BPH - Continue Flomax GERD - Continue Pantoprazole Seasonal Allergies - Continue home meds as needed DVT Prophylaxis - SCD Knee, RHONDA Hose - Pharmacological prophylaxis per primary team Disposition - Med/Surg - OT and PT evaluations per primary team - Cleared from medicine perspective. FULL CODE Resident Involvement: Resident Care Provided Care Provided: Adult Hospital Medicine
== END 2016-12-05 13:07 | disposition home or self-care (01) | DRG 483 ==
LOC: C.ACU 10:49 → C.MSN 13:17 → ENRESERV 18:39
PROVIDERS: ADMIT Orthopaedic Surgery Sports Medicine; ATTEND Orthopaedic Surgery Sports Medicine
PROC: 0LM10ZZ Reattachment of Right Shoulder Tendon, Open Approach (ICD-10-PCS; principal; 2016-12-03 13:00)
PROC: 0RRJ0J6 Replacement of Right Shoulder Joint with Synthetic Substitute, Humeral Surface, Open Approach (ICD-10-PCS; principal; 2016-12-03 13:00)
PROC: 0PB90ZZ Excision of Right Clavicle, Open Approach (ICD-10-PCS; principal; 2016-12-03 13:00)
DX: M19.011 Primary osteoarthritis, right shoulder (principal); M65.811 Other synovitis and tenosynovitis, right shoulder; I10 Essential (primary) hypertension; G47.30 Sleep apnea, unspecified; Z79.899 Other long term (current) drug therapy; N40.0 Benign prostatic hyperplasia without lower urinary tract symptoms; K21.9 Gastro-esophageal reflux disease without esophagitis

== ENCOUNTER 2018-12-24 05:43 | Inpatient (IN) ==
--- NOTE | 2018-11-22 16:47 | PAT Medication Instructions ---
Medication Instructions Date of Service November 22, 2018 Home Medications lisinopril 20 mg PO QAM meloxicam 15 mg PO QAM pantoprazole 40 mg PO QAM tamsulosin 0.4 mg PO QAM ASK your surgeon for instructions meloxicam 15 mg PO QAM DO NOT take the morning of surgery lisinopril 20 mg PO QAM Take morning of surgery With a small sip of water, OTHERWISE NOTHING TO EAT OR DRINK AFTER MIDNIGHT: pantoprazole 40 mg PO QAM tamsulosin 0.4 mg PO QAM Other Notes If you have any questions please call us at [phone] or [phone] or [phone] or [phone]
--- NOTE | 2018-11-23 11:47 | Anesthesiology Consultation ---
Date of Service November 23, 2018 Assessment & Plan (1) Encounter for pre-operative examination: Chart Review Chart Review: Pending: Refer to Additional Notes / Consult section (pending preop testing (labs, EKG, CXR)) and Patient seen in Pre Admission Testing Teaching & Discussion Pre-Anesthesia Teaching/Discussion Notes: Instructed NPO after midnight before surgery,except medications with 15 cc of water. Medication instructions prov ided according to the PAT guidelines. History Surgery Operation Date: 12/24/18 07:30 Proposed Procedures p Right Total Knee Arthroplasty - Ed Griffith DO Height/Weight Height: 6 ft 1 in Weight: 107.1 kg Allergies Allergy/AdvReac Type Severity Reaction Status Date / Time dog dander Allergy Unknown CAT DOG Verified 11/22/18 08:36 DANDER-ITCHY EYES, STUFFY NOSE grass pollen-perennial rye, Allergy Unknown GRASS,TREES Verified 11/22/18 08:36 standar CONGESTION No Known Drug Allergies Allergy Unknown NONE Verified 11/22/18 08:36 pollen extracts Allergy Unknown ITCHY Verified 11/22/18 08:36 EYES, STUFFY NOSE Medications Home Medications Medication Instructions Recorded Confirmed Last Taken lisinopril 20 mg PO QAM 11/22/18 11/22/18 Unknown meloxicam 15 mg PO QAM 11/22/18 11/22/18 Unknown pantoprazole 40 mg PO QAM 11/22/18 11/22/18 Unknown tamsulosin 0.4 mg PO QAM 11/22/18 11/22/18 Unknown Past Medical History Medical History History of anxiety History of kidney stones Hypertension Osteoarthritis on PPI preventative while on NSAIDs Sleep apnea did not tolerate device; s/p UPPP Exercise / Class Metabolic Activity II 4-5 Yardwork/Stairs/Walk up hill Past Family History Family History Mother Family history of diabetes mellitus (DM) Past Surgical History Surgical History History of appendectomy History of arthroscopy of left knee History of arthroscopy of left shoulder History of arthroscopy of right knee History of arthroscopy of right shoulder History of back surgery X2 LOWER BACK History of brain surgery X2 - DERMOID CYSTS REMOVED History of colonoscopy History of neck surgery DISC OUT/HARDWARE IN History of toe surgery RIGHT BIG TOE History of tonsillectomy History of total left knee replacement (TKR) History of total replacement of left shoulder joint History of total replacement of right shoulder joint History of urologic surgery KIDNEY STONES REMOVED History of uvulopalatopharyngoplasty LASERED OFF UVULA Past Anesthesia History No Hx of Anesthesia Complications (except PONV (no issues when scope patch used)) and No Family Hx of Anesthesia Complications History of PONV No Hx of Motion Sickness and History of PONV (no issues with scope patch used) Social History Smoking Status: Former smoker Do You Dip or Chew Tobacco: No Smoking End Date: QUIT 30 YRS AGO Hx Alcohol Use: Yes Alcohol type: beer alcohol intake frequency: a few times a week Alcohol Intake Frequency Comment: 6 PACK/WEEK Hx Substance Use: No substance use type: does not use Review of Systems Patient denies chest pain, shortness of breath, dyspnea on exertion, reflux, cough, wheezing, palpitations. Physical Exam Vital Signs VITALS BP 159/92 P 55 TEMP 98.1 SP02 96%RA RESP 16 PHYSICAL Full neck and c-spine range of motion. Full TMJ range of motion. TMD 3 finger breaths Mallampati Score 2 Dentition: intact Lungs: clear throughout to auscultation Cardiac: regular rate and rhythm, no murmurs noted Spine: normal Carotid arteries: negative bruit Extremities: no edema
--- NOTE | 2018-11-23 12:58 | XRay Report ---
XR chest Pre-admission PA/Lat CLINICAL HISTORY: Preoperative evaluation. COMPARISON STUDY: Chest radiograph October 24, 2016. FINDINGS: Lung volumes are at the upper limits of normal. Lungs are clear. There is no pneumothorax o r pleural effusion. Cardiac size is normal. Mediastinal contours are normal. There is no evidence for pulmonary edema. Incidental note is made of a left shoulder arthroplasty and anterior cervical spine fusion. IMPRESSION: No acute cardiopulmonary findings. Electronically signed by: David Hawthorne M.D. 11/23/2018 12:57 PM
[2018-11-23 13:19] LABS: Basophils # (auto) 0.01 K/uL (0-0.2); Basophils % (auto) 0.2 %; Eosinophils # (auto) 0.14 K/uL (0-0.5); Eosinophils % (auto) 2.4 %; Hematocrit (blood only) 41.3 % (42-52); Hemoglobin 14.2 g/dL (14.0-18.0); Immature Granulocytes # (auto) 0.01 K/uL (0.00-0.02); Immature Granulocytes % (auto) 0.2 %; Lymphocytes # (auto) 1.74 K/uL (1.2-3.4); Lymphocytes % (auto) 29.7 %; Mean Corpuscular Hemoglobin 31.1 pg (25-34); Mean Corpuscular Hgb Conc 34.4 g/dL (32-36); Mean Corpuscular Volume 90.6 fL (80-100); Mean Platelet Volume 10.4 fL (7.4-10.4); Monocytes # (auto) 0.48 K/uL (0.11-0.59); Monocytes % (auto) 8.2 %; Neutrophils # (auto) 3.48 K/uL (1.4-6.5); Neutrophils % (auto) 59.3 %; Platelet Count 184 K/uL (130-400); RDW Coefficient of Variation 13.8 % (11.5-14.5); RDW Standard Deviation 45.9 fL (36.4-46.3); Red Blood Count 4.56 M/uL (4.7-6.1); White Blood Count 5.86 K/uL (4.8-10.8)
[2018-11-23 13:28] LABS: Albumin Level 3.9 gm/dl (3.4-5.0); Creatinine Clr Calc Pharmacy 97.4 ml/min; Est GFR (Non-African American) 79.3; Potassium 3.7 mmol/L (3.5-5.1)
[2018-11-23 13:29] LABS: Estimated Average Glucose 123 mg/dl; Hemoglobin A1C 5.9 % (4.5-5.6)
[2018-11-23 13:31] LABS: Partial Thromboplastin Time 26.8 Seconds (21.0-31.0); Prothrombin Time 10.2 Seconds (9.0-12.0)
[2018-11-23 13:31] LABS: Appearance Urine Clear (Clear); Bacteria Urine Automated Negative (Negative); Bilirubin Urine Negative (Negative); Blood Urine 2+ (Negative); Cast Urine Automated 0 /lpf (0-5); Color Urine Yellow; Epithelial Cell Urine Auto 0-5 /lpf (0-5); Glucose Urine UA Negative (Negative); Ketones Urine Negative (Negative); Leukocyte Esterase Urine Negative (Negative); Nitrite Urine Negative (Negative); Protein Urine Negative (Negative); RBC Urine Automated 0-4 /hpf (0-4); Specific Gravity Urine 1.022 (1.000-1.030); Urobilinogen Urine Negative (Negative); WBC Urine Automated 0 /hpf (0-5)
--- NOTE | 2018-12-23 19:33 | History & Physical Report ---
Date of Service December 23, 2018 Assessment & Plan (1) Osteoarthritis of right knee: Schedule a right TKA for 12.24.18. All potential risks, benefits, complications, alternatives, and rehab have been discussed with the patient and he wishes to proceed. Plan for outpatient PT with ASA 81 mg BID x 30 days for DVT prophylaxis. History of Present Illness Chief Complaint: right knee pain Primary Care Provider: Geo Barker MD This is a patient with chronic right knee pain for multiple years. He had been treated conservatively for knee osteoarthritis, however he has failed all conservative management. He is now being set up for surgical tx. Allergies Allergy/AdvReac Type Severity Reaction Status Date / Time dog dander Allergy Unknown CAT DOG Verified 11/22/18 08:36 DANDER-ITCHY EYES, STUFFY NOSE grass pollen-perennial rye, Allergy Unknown GRASS,TREES Verified 11/22/18 08:36 standar CONGESTION No Known Drug Allergies Allergy Unknown NONE Verified 11/22/18 08:36 pollen extracts Allergy Unknown ITCHY Verified 11/22/18 08:36 EYES, STUFFY NOSE Home Medications Home Medications Medication Instructions Recorded Confirmed Type lisinopril 20 mg PO QAM 11/22/18 11/22/18 History meloxicam 15 mg PO QAM 11/22/18 11/22/18 History pantoprazole 40 mg PO QAM 11/22/18 11/22/18 History tamsulosin 0.4 mg PO QAM 11/22/18 11/22/18 History Past Med/Surg History Medical History History of anxiety History of kidney stones Hypertension Osteoarthritis on PPI preventative while on NSAIDs Sleep apnea did not tolerate device; s/p UPPP Surgical History History of appendectomy History of arthroscopy of left knee History of arthroscopy of left shoulder History of arthroscopy of right knee History of arthroscopy of right shoulder History of back surgery X2 LOWER BACK History of brain surgery X2 - DERMOID CYSTS REMOVED History of colonoscopy History of neck surgery DISC OUT/HARDWARE IN History of toe surgery RIGHT BIG TOE History of tonsillectomy History of total left knee replacement (TKR) History of total replacement of left shoulder joint History of total replacement of right shoulder joint History of urologic surgery KIDNEY STONES REMOVED History of uvulopalatopharyngoplasty LASERED OFF UVULA Family History Mother Family history of diabetes mellitus (DM) Social History Preferred Language: Armenian Communication Ability: Effective Cartography Supervisor Required: No Beliefs That Will Affect Care: None Current Living Situation: Spouse and Family Other Information That Helps Us Care for You: No Feels Safe at Home: Yes Smoking Status: Former smoker Do You Dip or Chew Tobacco: No ; Smoking End Date: QUIT 30 YRS AGO ; Hx Alcohol Use: Yes Alcohol type: beer Hx Substance Use: No Physical Exam Constitutional: well developed and well nourished; no acute distress ENMT: external ear and nose normal, oropharynx normal Neck: trachea midline, no thyromegaly Respiratory: normal respiratory effort, lungs clear to auscultation Cardiovascular: Rate/Rhythm: regular rate and regular rhythm Gastrointestinal (Abdomen): normal bowel sounds, soft, nontender, no hepatosplenomegaly Musculoskeletal: Gait: + limp (right side) Knee: + effusion (right), + knee ROM with crepitation (right knee) and + joint line tenderness (medial and lateral joint spaces right knee); no deformity, no skin erythema and no ecchymosis Skin: no rashes, warm and dry Neurologic: normal touch/pain/proprioception Psychiatric: A+Ox3, euthymic affect Lymphatic: no cervical or axillary lymphadenopathy
[2018-12-24] MEDS ORDERED: FAMOTIDINE 20 MG TAB PO SCH (06:00)
[2018-12-24] MEDS ORDERED: CeleBREX 200 MG CAP PO SCH (06:00)
[2018-12-24] MEDS ORDERED: GABAPENTIN 600 MG DOSE PO SCH (06:00)
[2018-12-24] MEDS ORDERED: METOCLOPRAMIDE HCL 10 MG TABLET PO SCH (06:00)
[2018-12-24] MEDS ORDERED: LR 500ML BOLUS, THEN 15ML/HR IV SCH (06:00)
[2018-12-24] MEDS ORDERED: CEFAZOLIN 2000MG 2,000 MG/15 ML SYR IV SCH (06:00)
[2018-12-24] MEDS ORDERED: ACETAMINOPHEN 500 MG TAB PO SCH (06:00)
[2018-12-24] MEDS ORDERED: dexAMETHasone 4 MG TAB PO SCH (06:00)
[2018-12-24] MEDS ORDERED: BUPIVACAINE 0.5 % 5 MG/1 ML PF 10ML VIAL ONE (06:14)
[2018-12-24] MEDS ORDERED: ROPIVACAINE 0.5% 5 MG/ML 30 ML VIAL ONE (06:15)
[2018-12-24] MEDS ORDERED: MIDAZOLAM HCL 1 MG/ML 2ML VIAL ONE (06:57)
[2018-12-24] MEDS ORDERED: ONDANSETRON INJ 2 MG/ML 2 ML VIAL ONE (06:57)
[2018-12-24] MEDS ORDERED: fentaNYL citrate 100 MCG/2 ML VIAL ONE (06:57)
[2018-12-24] MEDS ORDERED: PROPOFOL IV EMULSION 10 MG/ML 20 ML VIAL IV ONE ×4 (06:57→09:52)
[2018-12-24] MEDS ORDERED: LIDOCAINE HCL 2% 2 ML VIAL/AMP(20MG/ML) INFIL ONE (06:57)
[2018-12-24] MEDS ORDERED: SCOPOLAMINE 1.5 MG TDSY ONE (07:02)
[2018-12-24] MEDS ORDERED: SCOPOLAMINE 1.5 MG TDSY TD ONE (07:03)
[2018-12-24] MEDS ORDERED: ONDANSETRON INJ 2 MG/ML 2 ML VIAL IV PRN ×2 (07:07→11:38)
[2018-12-24] MEDS ORDERED: ATROPINE SULFATE 0.1 MG/ML 10ML SYR IV PRN (07:07)
[2018-12-24] MEDS ORDERED: ePHEDrine sulfate 50 MG/ML AMP IV PRN (07:07)
[2018-12-24] MEDS ORDERED: HYDROmorphone INJ 1 MG/ML SYRINGE IV PRN (07:07)
[2018-12-24] MEDS ORDERED: KETOROLAC 30 MG/ML VIAL IV PRN (07:07)
[2018-12-24] MEDS ORDERED: BACITRACIN INJ 50,000 UNIT VIAL ONE (07:09)
--- NOTE | 2018-12-24 07:34 | History & Physical Bridge Note ---
Date of Service December 24, 2018 History & Physical Bridge Note I have examined the patient, reviewed the History & Physical and in the interval since the performance of the History & Physical I have noted the following changes of clinical significance: no changes noted
[2018-12-24] MEDS ORDERED: CHECK SCOPOLAMINE PATCH PLACEMENT SCH (08:00)
[2018-12-24] MEDS ORDERED: ROPIVACAINE 0.5% HCL/PF 150 MG, BUPIVACAINE 0.5% MPF 30 ML, EPINEPHrine 30MG/30ML (OR U... INFIL SCH (08:15)
[2018-12-24] MEDS ORDERED: TRANEXAMIC ACID 1,000 MG **IV Intra-op IV SCH (08:30)
[2018-12-24] MEDS ORDERED: PHENYLEPHRINE HCL 10 MG/ML VIAL ONE (09:10)
--- NOTE | 2018-12-24 10:12 | Post Operative Brief Note ---
Immediate Post Op Note v1 Date of Surgery December 24, 2018 Pre & Post Diagnosis Operation Date: 12/24/18 07:30 Pre-Op Diagnosis: RIGHT KNEE OSTEOARTHRITIS, degenerative joint disease right knee, flexion CONTRACTURE Post-Op Diagnosis: RIGHT KNEE OSTEOARTHRITIS, degenerative joint disease right knee, flexion CONTRACTURE I identified the patient and participated in the time-out.: Yes Procedure Operation Date: 12/24/18 07:30 Actual Procedures p Right Total Knee Arthroplasty with [employer] journey to MRI matched components. Femur 9, tibia 9, posterior stabilized polyethylene 10, patella 41. (Right) - Ed Griffith DO Surgeon Ed Griffith DO [employer] Truck Driver Roberto Gaitan PA-C Estimated Blood Loss 10 Findings Consistent with Post-Op Diagnosis Specimens Bone and tissue right knee Drains Hemovac Drain Anesthesia Type Spinal MAC Complications none Disposition Accompanied Patient To Recovery: No Disposition: Recovery Room
--- NOTE | 2018-12-24 10:45 | Operative Report ---
DATE OF OPERATION: 12/24/2018 PREOPERATIVE DIAGNOSES: 1. Right knee degenerative joint disease. 2. Flexion contracture of the right knee. 3. Osteoarthritis of the right knee. POSTOPERATIVE DIAGNOSES: 1. Right knee degenerative joint disease. 2. Flexion contracture of the right knee. 3. Osteoarthritis of the right knee. PROCEDURE: Right total knee arthroplasty using a [employer] and Nephew MRI matched Journey II, size 9 femur, size 9 tibia, 10 mm posterior stabilized polyethylene and a 41 mm patella. SURGEON: dE Griffith DO. TERRAZZO TILE SETTER: Roberto Gaitan PA-C who was present for patient positioning, sterile prep and drape, management of retractors and instruments. He was present through the critical portions of the case including wound closure, application of sterile dressing and transport of the patient to recovery. ANESTHESIA: Spinal, regional with intraarticular local. SPECIMENS: Bone and tissue, right knee. DRAINS: Hemovac x1. COMPLICATIONS: None. BLOOD LOSS: 10 mL. PERTINENT HISTORY: This is a 63-year-old gentleman who has had chronic, progressive and worsening right knee pain, loss of function, effusion and deformity. The patient attempted and failed conservative management including modification of activities, rest, anti-inflammatories, intraarticular steroid, intraarticular viscosupplementation, use of a brace and use of an assistive device. Radiographs demonstrate flexion contracture of the right knee with complete loss of articular cartilage and bony sclerosis with subchondral cysts and marginal osteophytes. The patient was then scheduled for surgery as indicated. All potential risks, benefits, complications, alternatives, rehab potential for incomplete relief of symptoms, need for further surgery, DVT, PE, , persistent pain, swelling, scarring, weakness, neurovascular injury, wound complications, hardware failure, nonunion, malunion and bone fracture were discussed with the patient. The patient decided to proceed with the procedure as indicated. DESCRIPTION OF PROCEDURE: The patient was taken to the Operating Suite and placed supine on the Operating Room table after the patient had been administered spinal epidural anesthetic and femoral nerve sheath catheter in the preop holding area. The patient was sedated. Proper operative site was identified. The tourniquet was placed high on the right lower extremity. Right lower extremity was then sterilely prepped and draped in the usual fashion. Elevated and exsanguinated with an Esmarch bandage. Tourniquet inflated to 350 mmHg. Next a midline 10-blade scalpel incision was made directly over the middle one-third of the patella extending to the level of the tibial tubercle. The incision was deepened through the subcutaneous tissue and meticulous hemostasis with electrocautery. Full-thickness skin flaps were developed taking care to avoid neurovascular bundles. Next, median parapatellar capsular incision was made 10-blade scalpel after the superior medial corner had been marked with a marking pen for later reapproximation. Next, patella was everted. Soft tissue releases were performed of the knee including along the anterior medial corner to the level of the MCL which was protected and released adjacent to the MCL with Hernandez elevator. Fat pad was resected anteriorly and small half arora portion of tissue was resected at the superior margin of the dermal articular surface. Next, the patella thickness was measured with caliper and held in everted position with Win. Next, sagittal saw was used to make orthogonal cuts to the level of the patellar nose. Caliper was used to remeasure the patella and the appropriate sized patellar button, in this case size 41 mm was felt to be most appropriate. The alignment guide was then put in place. Peg holes were drilled and alignment guide was then removed. Next, the femoral cutting block was placed in the distal aspect of the femur and pinned in place. Next the distal femoral cut was made based off the patient's anatomy and MRI patient matched cutting block. Next, a size 9 distal 4-in-1 cutting block was tamped in place, then stabilized with pins. Next, the appropriate soft tissue retraction was made and anterior chamfer and posterior chamfer cuts were made with the sagittal saw. Next, the 4-in-1 cutting block was then removed followed by removal of all bone fragments. Next, attention was then directed toward the proximal tibia. Blunt Veronica was placed posterior to the tibia to protract it anteriorly and median and lateral sharp Veronica retractors were placed. Soft tissue and portion of the menisci were then resected at this time and MRI matched proximal tibial cutting block was then pinned in place and proximal tibial cut was made with sagittal saw. Alignment guide was removed. Pins were removed and the proximal fragment of the tibia was then sharply excised and removed. Next, proximal tibial tray trial size 9 was then pinned in place and this was felt to be well matched for the patient's anatomy, pinned in place and keel punch was then utilized with han. Benjaminel punch was then removed and cervical laminar aerial planting and cultivation manager was then placed in the medial compartment. The lateral compartment was then inspected for osteophytes and soft tissue impingement. There was found to be none. I then switched to the lateral compartment and medial compartment was then debrided of any soft tissue impingement. Next the laminar aerial planting and cultivation manager was removed and the femoral trial, in this case size 9 was then malleted in place, pinned and then femoral notch milling guide was then placed anteriorly. This was then reamed and then punched with sharp punch and mallet. Next, the distal aspect of the femur was then inserted in notch guide and size 10 mm posterior stabilized poly was inserted, reduced. Patellar button was then placed in trial and range of motion was performed. Next after range of motion and stability test was performed the implants were found to be appropriate size. Trials were all removed. The posterior capsule was injected with Orthomix. Next the joint was then cleansed with pulsatile lavage using approximately 3 liters normal saline with Bacitracin additive. Next all bony surfaces were the suctioned and drained and standard cementing technique was performed with antibiotic cement and all excess cement was then removed from around the implant site. A 10 mm posterior stabilized polyethylene bearing was implanted and checked for stability. The patellar button was then cemented in place and held in place with patellar clamp. Next, double lumen 10 [place] Hemovac drain was then placed and exiting anterolaterally and the capsule was closed using interrupted #1 Vicryl sutures. The dermis was closed using buried interrupted 2-0 Vicryl and the skin closed with skin teresita. A sterile compressive dressing was applied from the toes to the groin and overwrapped with Nilesh wrap. Tourniquet was released. The patient was awakened and taken to recovery in stable condition. I attest to the content of the Intraoperative Record and any orders documented therein. Any exceptions are noted below. THOMAS
--- NOTE | 2018-12-24 11:24 | XRay Report ---
XR knee RT 2V routine HISTORY: 63 years-old Male Surgical Post Op right knee total joint arthroplasty COMPARISON: None available TECHNIQUE: 2 views of the right knee FINDINGS: Total joint arthroplasty and patella resurfacing. Anterior midline skin thickening is are noted along with expected postsurgical soft tissue swelling and tissue air. Satisfactory alignment without acute fracture. IMPRESSION: Satisfactory alignment of the right knee total joint arthroplasty. The above report was generated using voice recognition software. It may contain grammatical, syntax o r spelling errors. Electronically signed by: Lenin Tanner M.D. 12/24/2018 11:23 AM
--- NOTE | 2018-12-24 11:29 | Anesthesiology Progress Note ---
Date of Service December 24, 2018 Anesthesia Post Procedure Vital Signs Vital Signs: Temp Pulse Pulse Resp BP Pulse Ox 12/24/18 11:15 76 15 109/77 98 12/24/18 11:00 36.2 C L 73 20 113/75 96 12/24/18 10:50 77 14 107/77 93 12/24/18 10:40 71 12 108/71 100 12/24/18 10:31 36.2 C L 81 13 114/74 100 12/24/18 06:18 36.4 C L 80 18 161/99 H 97 Transfer of Care Handoff Completed per policy Notes Mental Status: alert / awake / arousable Patient Amnestic to Procedure: Yes Nausea / Vomiting: adequately controlled Pain: adequately controlled Airway Patency, RR, SpO2: stable & adequate BP & HR: stable & adequate Hydration State: stable & adequate Anesthetic Complications: no major complications apparent
[2018-12-24] MEDS ORDERED: METOCLOPRAMIDE HCL INJ 5 MG/ML 2 ML VIAL IV PRN (11:38)
[2018-12-24] MEDS ORDERED: OXYCODONE HCL IR 5 MG TAB (IMMEDIATE RELEASE) PO PRN (11:38)
[2018-12-24] MEDS ORDERED: ALUMINUM/MAGNESIUM SUSP 30 ML UDC PO PRN (11:38)
[2018-12-24] MEDS ORDERED: bisacodyL 10 MG SUPP PR PRN (11:38)
[2018-12-24] MEDS ORDERED: MAGNESIUM HYDROXIDE SUSP 30 ML UDC PO PRN (11:38)
[2018-12-24] MEDS ORDERED: NALOXONE HCL 0.4 MG/1 ML VIAL/CARP IV PRN (11:38)
[2018-12-24] MEDS ORDERED: HYDROmorphone INJ 0.5 MG/0.5 ML SYR IV PRN (11:38)
[2018-12-24] MEDS: KETOROLAC TROMETHAMINE 15 MG/ML VIAL IV SCH ×3 (12:17→23:25)
[2018-12-24] MEDS: SODIUM CHLORIDE 0.9% 1000ML 1,000 ML IV SCH ×2 (12:18→23:28)
[2018-12-24] MEDS: ACETAMINOPHEN 500 MG TAB PO SCH ×2 (13:21→21:56)
--- NOTE | 2018-12-24 13:27 | Hospitalist Consultation ---
Date of Consultation December 24, 2018 Assessment & Plan (1) History of arthroplasty of right knee: (2) HTN (hypertension): (3) Osteoarthritis of right knee: (4) GERD (gastroesophageal reflux disease): (5) BPH (benign prostatic hyperplasia): (6) LYNSEY (obstructive sleep apnea): Continue home medications. Home medication list reconciled. Pain control/ DVT prophylaxis per orthopedics. Continue with aspirin twice daily for DVT prophylaxis. Repeat labs in a.m. Continue PPI for GI prophylaxis appraisal manager for discharge planning. Consult PT OT. CODE STATUS -full code. History of Present Illness Reason for Consultation: Postop medical management Attending Physician: Ed Griffith DO History of Present Illness The patient is 63 years old male who had right knee arthroplasty today. He tolerated surgery well without any complication. Hospitalist consultation was requested for medical management. He denies any chest pain. No shortness of breath. No nausea vomiting. Postoperative pain appears to be under control. Allergies Allergy/AdvReac Type Severity Reaction Status Date / Time dog dander Allergy Unknown CAT DOG Verified 12/24/18 06:11 DANDER-ITCHY EYES, STUFFY NOSE grass pollen-perennial rye, Allergy Unknown GRASS,TREES Verified 12/24/18 06:11 standar CONGESTION No Known Drug Allergies Allergy Unknown NONE Verified 12/24/18 06:11 pollen extracts Allergy Unknown ITCHY Verified 12/24/18 06:11 EYES, STUFFY NOSE Home Medications Home Medications Medication Instructions Recorded Confirmed Type meloxicam 15 mg PO QAM 11/22/18 12/24/18 History pantoprazole 40 mg PO QAM 11/22/18 12/24/18 History tamsulosin 0.4 mg PO QAM 11/22/18 12/24/18 History lisinopril-hydrochlorothiazide 20 mg PO DAILY 12/24/18 12/24/18 History potassium 10 meq PO DAILY 12/24/18 12/24/18 History Patient History Medical History History of anxiety History of kidney stones Hypertension Osteoarthritis on PPI preventative while on NSAIDs Sleep apnea did not tolerate device; s/p UPPP Surgical History History of appendectomy History of arthroscopy of left knee History of arthroscopy of left shoulder History of arthroscopy of right knee History of arthroscopy of right shoulder History of back surgery X2 LOWER BACK History of brain surgery X2 - DERMOID CYSTS REMOVED History of colonoscopy History of neck surgery DISC OUT/HARDWARE IN History of toe surgery RIGHT BIG TOE History of tonsillectomy History of total left knee replacement (TKR) History of total replacement of left shoulder joint History of total replacement of right shoulder joint History of urologic surgery KIDNEY STONES REMOVED History of uvulopalatopharyngoplasty LASERED OFF UVULA Family History Mother Family history of diabetes mellitus (DM) Social History Preferred Language: Faroese Communication Ability: Effective Resource Specialist Required: No Beliefs That Will Affect Care: None Current Living Situation: Spouse and Family Other Information That Helps Us Care for You: No Feels Safe at Home: Yes Smoking Status: Former smoker Do You Dip or Chew Tobacco: No ; Smoking End Date: QUIT 30 YRS AGO ; Hx Alcohol Use: Yes Alcohol type: beer Hx Substance Use: No Review of Systems Review of Systems: All systems reviewed & are unremarkable except as noted in HPI & below Physical Exam Physical Exam: GENERAL : No acute distress EYES: No icterus, gaze conjugate NOSE: No evidence of epistaxis MOUTH: No lesions or candidiasis, mucosa moist NECK: Supple LUNGS: CTA B/L, no wheezes, rales or rhonchi HEART: Regular, rate controlled ABDOMEN: Soft, NT, ND, BS Present EXTREMITIES: No LE edema, pedal pulses intact Postop dressing present right leg. NEURO: A&OX3 Results & Data Vital Signs (Past 12 Hours) Vital Signs Temp Pulse Pulse Resp BP Pulse Ox 12/24/18 12:34 97.9 F 77 18 133/80 96 12/24/18 12:02 97.3 F L 73 16 112/87 97 12/24/18 11:38 98.1 F 75 16 103/64 98 12/24/18 11:15 76 15 109/77 98 12/24/18 11:00 97.2 F L 73 20 113/75 96 12/24/18 10:50 77 14 107/77 93 12/24/18 10:40 71 12 108/71 100 12/24/18 10:31 97.2 F L 81 13 114/74 100 12/24/18 06:18 97.5 F L 80 18 161/99 H 97 Laboratory Results 11/23/18 12:02 11/23/18 12:02 Diagnostic Findings XR knee RT 2V routine HISTORY: 63 years-old Male Surgical Post Op right knee total joint arthroplasty COMPARISON: None available TECHNIQUE: 2 views of the right knee FINDINGS: Total joint arthroplasty and patella resurfacing. Anterior midline skin thickening is are noted along with expected postsurgical soft tissue swelling and tissue air. Satisfactory alignment without acute fracture. IMPRESSION: Satisfactory alignment of the right knee total joint arthroplasty. PG Care Time/CCT Total # of Minutes Spent Total Time Spent with Patient: Total time spent is greater than 50% in coordination of care (as documented) at patient's floor/unit and/or counseling patient:
[2018-12-24] MEDS: CEFAZOLIN 2000MG 2,000 MG/15 ML SYR IV SCH ×2 (16:08→23:25)
[2018-12-24] MEDS ORDERED: TRANEXAMIC ACID 1,000 MG in 0.9 % SODIUM CHLORIDE 100 ML IV SCH (16:31)
[2018-12-24] MEDS: ASPIRIN 81 MG ECTAB PO SCH (19:47)
[2018-12-24] MEDS: SENNA 8.6 MG TAB PO SCH (19:48)
[2018-12-24] MEDS: DOCUSATE SODIUM 100 MG CAP PO SCH (19:48)
[2018-12-25] MEDS: ACETAMINOPHEN 500 MG TAB PO SCH ×3 (05:26→21:22)
[2018-12-25] MEDS: KETOROLAC TROMETHAMINE 15 MG/ML VIAL IV SCH (05:26)
[2018-12-25 05:49] LABS: Hematocrit (blood only) 34.2 % (42-52); Hemoglobin 11.7 g/dL (14.0-18.0); Mean Corpuscular Hemoglobin 30.8 pg (25-34); Mean Corpuscular Hgb Conc 34.2 g/dL (32-36); Mean Platelet Volume 10.2 fL (7.4-10.4); Platelet Count 194 K/uL (130-400); RDW Coefficient of Variation 13.2 % (11.5-14.5); RDW Standard Deviation 43.4 fL (36.4-46.3); White Blood Count 12.35 K/uL (4.8-10.8)
[2018-12-25 06:20] LABS: BUN Creatinine Ratio 27.4 (10-20); Calcium 7.8 mg/dl (8.5-10.1); Creatinine Clr Calc Pharmacy 81.5 ml/min; Est GFR (African American) 75.4; Est GFR (Non-African American) 65.1; Potassium 4.1 mmol/L (3.5-5.1)
[2018-12-25] MEDS ORDERED: dexAMETHasone 4 MG TAB PO SCH (08:00)
--- NOTE | 2018-12-25 08:08 | Orthopedic Progress Note ---
Date of Service December 25, 2018 Assessment & Plan (1) Osteoarthritis of right knee: Postop day 1 status post right total knee arthroplasty. Begin PT/OT protocols. Weightbearing as tolerated. DVT prophylaxis with aspirin, SCDs, RHONDA hose Pain management with acetaminophen IV hydromorphone and p.o. oxycodone DC planning-patient is planning outpatient PT. Currently his drainage is too much to remove the drain at this point in time. Plans will be to keep him here till tomorrow and have the drain discontinued in the morning as long as the drainage has dissipated. Subjective Patient currently lying in bed awake and alert. Pain is controlled. He denies shortness of breath, chest pain, lightheadedness. He states that he has weakness with dorsiflexion of his right foot. No other complaints. Physical Exam Physical Exam: Dressings are clean, dry, and intact. Calves are soft and nontender. He has good plantar flexion but he has a noted foot drop and is unable to dorsiflex the foot or the great toe. He states that he does not have that much in the way of numbness over the foot. Hemovac drainage from previous shift was 275 mL's. Results & Data Vital Signs (Past 12 Hours) Vital Signs Temp Pulse Resp BP Pulse Ox 12/25/18 07:06 36.5 C 65 18 119/70 97 12/25/18 03:48 36.8 C 62 15 108/69 97 12/24/18 23:33 36.5 C 69 16 132/81 95 Laboratory Results Laboratory Results WBC 12.35 K/uL (4.8-10.8) H 12/25/18 04:41 RBC 3.80 M/uL (4.7-6.1) L 12/25/18 04:41 Hgb 11.7 g/dL (14.0-18.0) L 12/25/18 04:41 Hct 34.2 % (42-52) L 12/25/18 04:41 MCV 90.0 fL (80-100) 12/25/18 04:41 MCH 30.8 pg (25-34) 12/25/18 04:41 MCHC 34.2 g/dL (32-36) 12/25/18 04:41 RDW Std Deviation 43.4 fL (36.4-46.3) 12/25/18 04:41 RDW Coeff of Rachael 13.2 % (11.5-14.5) 12/25/18 04:41 Plt Count 194 K/uL (130-400) 12/25/18 04:41 MPV 10.2 fL (7.4-10.4) 12/25/18 04:41 Immature Gran % (Auto) 0.2 % 11/23/18 12:02 Neut % (Auto) 59.3 % 11/23/18 12:02 Lymph % (Auto) 29.7 % 11/23/18 12:02 [place] % (Auto) 8.2 % 11/23/18 12:02 Eos % (Auto) 2.4 % 11/23/18 12:02 Baso % (Auto) 0.2 % 11/23/18 12:02 Immature Gran # (Auto) 0.01 K/uL (0.00-0.02) 11/23/18 12:02 Neut # (Auto) 3.48 K/uL (1.4-6.5) 11/23/18 12:02 Lymph # (Auto) 1.74 K/uL (1.2-3.4) 11/23/18 12:02 [place] # (Auto) 0.48 K/uL (0.11-0.59) 11/23/18 12:02 Eos # (Auto) 0.14 K/uL (0-0.5) 11/23/18 12:02 Baso # (Auto) 0.01 K/uL (0-0.2) 11/23/18 12:02 PT 10.2 Seconds (9.0-12.0) 11/23/18 12:02 INR 1.0 (0.9-1.1) 11/23/18 12:02 APTT 26.8 Seconds (21.0-31.0) 11/23/18 12:02 PTT Ratio 1.0 11/23/18 12:02 Sodium 133 mmol/L (136-145) L 12/25/18 04:41 Potassium 4.1 mmol/L (3.5-5.1) 12/25/18 04:41 Chloride 104 mmol/L (98-107) 12/25/18 04:41 Carbon Dioxide 21 mmol/L (21-32) 12/25/18 04:41 Anion Gap 8.0 (3-11) 12/25/18 04:41 BUN 33 mg/dl (7-18) H 12/25/18 04:41 Creatinine 1.19 mg/dl (0.6-1.4) 12/25/18 04:41 Est Cr Clr Drug Dosing 81.5 ml/min 12/25/18 04:41 Est GFR ( Amer) 75.4 12/25/18 04:41 Est GFR (Non-Af Amer) 65.1 12/25/18 04:41 BUN/Creatinine Ratio 27.4 (10-20) H 12/25/18 04:41 Glucose 103 mg/dl (70-99) H 12/25/18 04:41 Estimat Average Glucose 123 mg/dl 11/23/18 12:02 Hemoglobin A1c 5.9 % (4.5-5.6) H 11/23/18 12:02 Calcium 7.8 mg/dl (8.5-10.1) L 12/25/18 04:41 Albumin 3.9 gm/dl (3.4-5.0) 11/23/18 12:02 Urine Color Yellow 11/23/18 Unknown Urine Appearance Clear (Clear) 11/23/18 Unknown Urine pH 5.0 (4.5-7.5) 11/23/18 Unknown Ur Specific [place] 1.022 (1.000-1.030) 11/23/18 Unknown Urine Protein Negative (Negative) 11/23/18 Unknown Urine Glucose (UA) Negative (Negative) 11/23/18 Unknown Urine Ketones Negative (Negative) 11/23/18 Unknown Urine Blood 2+ (Negative) H 11/23/18 Unknown Urine Nitrite Negative (Negative) 11/23/18 Unknown Urine Bilirubin Negative (Negative) 11/23/18 Unknown Urine Urobilinogen Negative (Negative) 11/23/18 Unknown Ur Leukocyte Esterase Negative (Negative) 11/23/18 Unknown Urine WBC (Auto) 0 /hpf (0-5) 11/23/18 Unknown Urine RBC (Auto) 0-4 /hpf (0-4) 11/23/18 Unknown U Hyaline Cast (Auto) 0 /lpf (0-5) 11/23/18 Unknown U Epithel Cells (Auto) 0-5 /lpf (0-5) 11/23/18 Unknown Urine Bacteria (Auto) Negative (Negative) 11/23/18 Unknown Blood Type A Positive 11/23/18 12:02 Antibody Screen NEGATIVE 11/23/18 12:02
[2018-12-25] MEDS: POTASSIUM CHLORIDE 10 MEQ TABCR PO SCH (08:55)
[2018-12-25] MEDS: MULTIVITAMIN TAB PO SCH (08:55)
[2018-12-25] MEDS: DOCUSATE SODIUM 100 MG CAP PO SCH ×2 (08:55→21:22)
[2018-12-25] MEDS: ASPIRIN 81 MG ECTAB PO SCH ×2 (08:55→21:22)
[2018-12-25] MEDS: LISINOPRIL/HCTZ 20/25MG 1 TAB PO SCH (08:56)
[2018-12-25] MEDS: TAMSULOSIN HCL 0.4 MG CAP PO SCH (08:56)
[2018-12-25] MEDS: PANTOprazole 40 MG TAB PO SCH (08:56)
--- NOTE | 2018-12-25 12:41 | Hospitalist Progress Note ---
Date of Service December 25, 2018 Assessment & Plan (1) Osteoarthritis of right knee: S/p right TKA DVT proph, pain control per primary monitor for acute blood loss, repeat cbc am (2) HTN (hypertension): Blood presures well controlled continue lisinopril-hctz (3) GERD (gastroesophageal reflux disease): Continue pantoprazole (4) BPH (benign prostatic hyperplasia): Continue tamsulosin Medicine will sign off at this time. Please call with any questions Subjective Mr. Mckeon is feeling well, tolerable pain. He is still draining quite a bit from his hemovac. ROS Constitutional: no chills, aches, sweats or fever Respiratory: no sob,cough, sputum, or wheezing Cardiac: no chest pain, palpitations, edema, orthopnea or lightheadedness GI: no abdominal pain, nausea, vomiting, diarrhea or constipation : no dysuria or hesitancy Extremities: no joint pain or weakness Skin: no rash All other systems reviewed and negative Physical Exam Physical Exam: General: no distress Eyes: normal inspection, PERLL Respiratory: chest non tender, clear to auscultation, normal breath sounds, no respiratory distress, no accessory muscle use Cardiac: regular rate and rhythm, no rub or gallop, no murmur, no edema, no jvd GI/: active bowel sounds, no abd pain or tenderness, soft, non distended Extremities: normal range of motion, normal strength, non tender Neuro/Psych: alert and oriented x 3, normal mood and affect Skin: normal color, dry Results & Data Vital Signs (Past 12 Hours) Vital Signs Temp Pulse Resp BP Pulse Ox 12/25/18 11:10 36.3 C L 71 18 122/75 97 12/25/18 07:06 36.5 C 65 18 119/70 97 12/25/18 03:48 36.8 C 62 15 108/69 97 PG Care Time/CCT Total # of Minutes Spent Total Time Spent with Patient: Total time spent is greater than 50% in coordination of care (as documented) at patient's floor/unit and/or counseling patient:
[2018-12-25] MEDS ORDERED: MELOXICAM 7.5 MG TAB PO SCH (13:00)
[2018-12-25] MEDS: SENNA 8.6 MG TAB PO SCH (21:22)
[2018-12-26] MEDS: ACETAMINOPHEN 500 MG TAB PO SCH ×3 (06:06→21:20)
--- NOTE | 2018-12-26 07:56 | Orthopedic Progress Note ---
Date of Service December 26, 2018 Assessment & Plan (1) Osteoarthritis of right knee: Postop day 2 status post right total knee arthroplasty. Begin PT/OT protocols. Weightbearing as tolerated. DVT prophylaxis with aspirin, SCDs, RHONDA hose Pain management with acetaminophen IV hydromorphone and p.o. oxycodone DC drain and dressing DC planning-patient is planning outpatient PT. DC to home today. Subjective POD 2 s/p Right TKA Pt awake and alert. Has some stiffness in the knee this AM but no other complaints. Pain controlled. Denies SOB,CP,LH. Hoping to go home. HV drainage has slowed down. Physical Exam Physical Exam: Dressings C/D/I. Calves soft, NT. NV intact. Strong DF/PF this AM. Pt states it returned around 9:30 yesterday morning. Toes mobile. HV drainage 50 latest shift. Results & Data Vital Signs (Past 12 Hours) Vital Signs Temp Pulse Resp BP Pulse Ox 12/26/18 06:08 36.8 C 74 16 122/76 97 12/25/18 23:34 36.4 C L 69 16 117/76 96
[2018-12-26] MEDS: DOCUSATE SODIUM 100 MG CAP PO SCH ×2 (08:23→21:20)
[2018-12-26] MEDS: ASPIRIN 81 MG ECTAB PO SCH ×2 (08:24→21:21)
[2018-12-26] MEDS: MULTIVITAMIN TAB PO SCH (08:24)
[2018-12-26] MEDS: LISINOPRIL/HCTZ 20/25MG 1 TAB PO SCH (08:24)
[2018-12-26] MEDS: TAMSULOSIN HCL 0.4 MG CAP PO SCH (08:24)
[2018-12-26] MEDS: POTASSIUM CHLORIDE 10 MEQ TABCR PO SCH (08:24)
[2018-12-26] MEDS: PANTOprazole 40 MG TAB PO SCH (08:26)
[2018-12-26] MEDS ORDERED: SODIUM CHLORIDE 0.9% 1000ML 500 ML IV ONE (10:25)
[2018-12-26] MEDS ORDERED: LACTATED RINGER'S 1,000 ML IV SCH (17:30)
[2018-12-26] MEDS: SENNA 8.6 MG TAB PO SCH (21:22)
[2018-12-27] MEDS: ACETAMINOPHEN 500 MG TAB PO SCH ×2 (05:40→13:19)
[2018-12-27] MEDS: DOCUSATE SODIUM 100 MG CAP PO SCH (07:44)
--- NOTE | 2018-12-27 07:44 | Orthopedic Progress Note ---
Date of Service December 27, 2018 Assessment & Plan (1) Osteoarthritis of right knee: Postop day 3 status post right total knee arthroplasty. Begin PT/OT protocols. Weightbearing as tolerated. DVT prophylaxis with aspirin, SCDs, RHONDA hose Pain management with acetaminophen IV hydromorphone and p.o. oxycodone DC planning-possibly home today. Will have medicine re-evaluate patient for they orthostatic hypotension. Will recheck patient later in the day for possible d/c. Subjective POD 3 s/p Right TKA Pt awake and alert. No complaints with the right knee. Minimal pain. Denies SOB,CP. States that he continues to have lightheadedness and sweating while sitting up or standing to walk despite fluid bolus yesterday. Physical Exam Constitutional: well developed and well nourished; no acute distress ENMT: external ear and nose normal, oropharynx normal Neck: trachea midline, no thyromegaly Respiratory: normal respiratory effort, lungs clear to auscultation Cardiovascular: Rate/Rhythm: regular rate and regular rhythm Gastrointestinal (Abdomen): normal bowel sounds, soft, nontender, no hepatosplenomegaly Musculoskeletal: Gait: + limp (right side) Knee: + surgical incision (right knee: Silverlon dressing in place. ); no deformity, no effusion (right), no skin erythema, no ecchymosis and no crepitation with knee ROM (right knee) Skin: no rashes, warm and dry Neurologic: normal touch/pain/proprioception Psychiatric: A+Ox3, euthymic affect Lymphatic: no cervical or axillary lymphadenopathy Results & Data Vital Signs (Past 12 Hours) Vital Signs Temp Pulse Pulse Resp BP Pulse Ox 12/27/18 06:30 36.4 C L 91 H 18 112/84 98 12/26/18 23:57 86 118/81 12/26/18 23:35 37.0 C 78 18 100/63 96 12/26/18 20:17 89 17 96/64 L 99 12/26/18 20:16 91 H 119/74 99 12/26/18 20:13 36.6 C 82 17 117/77 97
[2018-12-27] MEDS: PANTOprazole 40 MG TAB PO SCH (07:53)
[2018-12-27] MEDS: POTASSIUM CHLORIDE 10 MEQ TABCR PO SCH (07:54)
[2018-12-27] MEDS: TAMSULOSIN HCL 0.4 MG CAP PO SCH (07:54)
[2018-12-27] MEDS: MULTIVITAMIN TAB PO SCH (07:54)
[2018-12-27] MEDS: ASPIRIN 81 MG ECTAB PO SCH (07:55)
[2018-12-27] MEDS ORDERED: SODIUM CHLORIDE 0.9% 1000ML 500 ML IV ONE (08:06)
[2018-12-27 08:35] LABS: Hematocrit (blood only) 34.5 % (42-52); Mean Corpuscular Hemoglobin 31.1 pg (25-34); Mean Corpuscular Hgb Conc 34.8 g/dL (32-36); Mean Corpuscular Volume 89.4 fL (80-100); Mean Platelet Volume 9.2 fL (7.4-10.4); Platelet Count 190 K/uL (130-400); RDW Coefficient of Variation 13.1 % (11.5-14.5); RDW Standard Deviation 42.6 fL (36.4-46.3); Red Blood Count 3.86 M/uL (4.7-6.1); White Blood Count 9.21 K/uL (4.8-10.8)
[2018-12-27 09:03] LABS: BUN Creatinine Ratio 21.7 (10-20); Calcium 8.8 mg/dl (8.5-10.1); Est GFR (African American) 83.9; Est GFR (Non-African American) 72.4; Potassium 3.6 mmol/L (3.5-5.1)
--- NOTE | 2018-12-27 09:43 | Anesthesiology Progress Note ---
Date of Service December 27, 2018 Anesthesia Post Procedure Vital Signs Vital Signs: Temp Pulse Pulse Resp BP Pulse Ox 12/27/18 08:02 98 H 133/99 12/27/18 07:59 111 H 116/84 12/27/18 07:56 96 H 128/83 12/27/18 06:30 36.4 C L 91 H 18 112/84 98 12/26/18 23:57 86 118/81 12/26/18 23:35 37.0 C 78 18 100/63 96 12/26/18 20:17 89 17 96/64 L 99 12/26/18 20:16 91 H 119/74 99 12/26/18 20:13 36.6 C 82 17 117/77 97 12/26/18 17:21 78 118/76 12/26/18 15:51 95/62 L 12/26/18 15:48 36.6 C 77 17 114/72 97 12/26/18 13:15 105 H 90/44 L 12/26/18 13:14 98 H 102/69 12/26/18 11:56 36.8 C 74 16 122/76 97 Pain Intensity Right Knee: Pain Intensity: 2 Notes Mental Status: alert / awake / arousable and participated in evaluation Patient Amnestic to Procedure: Yes Nausea / Vomiting: adequately controlled Pain: adequately controlled Airway Patency, RR, SpO2: stable & adequate BP & HR: stable & adequate Hydration State: stable & adequate Neuraxial Anesthesia: sensory block resolved Anesthetic Complications: no major complications apparent and Pt Satisfied with anesthetic care
[2018-12-27] MEDS ORDERED: LORazepam 1 MG/2 ML VIAL IV STA (09:47)
--- NOTE | 2018-12-27 09:55 | Hospitalist Progress Note ---
Date of Service December 27, 2018 Assessment & Plan (1) Osteoarthritis of right knee: * POD #3 S/p right TKA with Dr. Griffith * DVT proph, pain control per primary * H/H stable at 11.4/33.7 * Orthostatic hypotension this AM- given 500cc bolus * Ativan 1mg x 1 for increased anxiety * May benefit from low dose SSRI/buspar as outpatient for increased anxiety/stress at home-- patient initiated on buspar 7.5mg BID- can be titrated up as outpatient (2) HTN (hypertension): * Lisinopril-HCTZ held this AM for orthostatic hypotension post- operatively. * Fluid bolus 500cc given * Repeat BP 133/99 * May restart lisinopril/hctz in AM (3) GERD (gastroesophageal reflux disease): * Stable * Continue pantoprazole 40mg QAM (4) BPH (benign prostatic hyperplasia): * Stable * Continue tamsulosin Medicine will sign off at this time. Please call with any questions. Supervising Physician Co-Signing Physician Notes Attending Attestation: Chart reviewed, care plan d/w YASEMIN Iqbal. I agree w/ the garcia components of her consult documentation. Orthostasis resolved s/p 2 small fluid boluses. Other medical issues stable. Jeff Julien MD Subjective Patient evaluated at bedside this morning. He states he "just doesn't feel right" and states he did have a history of anxiety attacks back in 1999, and had been on xanax, but states he did not like how groggy it made him feel. He states he went for a walk last evening at became extremely sweaty and states he was told his blood pressure dropped. The patient states prior to admission, his PCP switched him from lisinopril as a solo agent to lisinopril/hctz combination for better blood pressure control, as he was run christine 140/150s systolically prior to the switch. He states he does occasionally drink, but states he does not consider himself an alcoholic. He admits to 4-5 beers, or more if "buddies are around", 2-3x/wk. He also admitted to increased stress at home, as his has progressing RA and is unable to keep up with the house and his son is recently going through a divorce, so he has grandchildren living at home now as well. He is agreeable to try some lorazepam for anxiety, with discussion for long-term management with an alternative agent. Review of Systems Review of Systems: Constitutional: +Diaphoretic this AM. Denies weight loss, cold or heat intolerance, weakness or fatigue. HEENT: +Lightheaded this AM. Denies headaches, acute visual changes, double vision, light sensitivity or syncope, tinnitus, epistaxis, hoarseness, or dysphagia. Pulmonary: Denies shortness of breath, dyspnea on exertion, pain with in spiration, cough, sputum production, or hemoptysis. Cardiovascular: Denies chest pain, palpitations, syncope, edema. GI: Denies abdominal pain, nausea, vomiting, diarrhea, constipation, melena, hematochezia, change in stool color or consistency. : Denies dysuria, discharge, itching, bleeding, hematuria, changes in frequency or urgency, flank pain. MSK/Neuro: Tolerable pain of right knee. Denies any other muscle or joint pain, weakness, paralysis, numbness, or tingling. Skin: No rashes, lesions, wounds, eczema. Physical Exam Physical Exam: Skin: Skin warm, dry, without erythema, lesion, petechiae. Normal turgor. Nails without clubbing or cyanosis. Cap refill <3 seconds. Dressing present to right knee per ortho. HEENT: Head normocephalic, atraumatic. Frontal and maxillary sinuses without tenderness to palpation. Anicteric sclera. EOMI. PERRLA. Conjunctiva pink and moist. External nose without deformity, lesions or visible drainage. Mucosa pink, without edema, congestion, or bogginess. Non-tender to palpation. Trachea midline. Swallowing intact. Thyroid without nodules. No carotid bruits noted on auscultation. Pulmonary: Chest without lesions or deformity. No accessory muscle usage noted. No acute distress. Lungs clear to auscultation bilaterally without wheezes, crackles, rhonchi. Cardiac: No visible PMI. Neck without JVD. RRR, Normal S1, S2. No murmurs, rubs, or gallops. Abdomen: Abdomen soft, non-tender to palpation. Normoactive bowel sounds.No hepatosplenomegaly. Neuro: CN II-XII grossly intact. Results & Data Vital Signs (Past 12 Hours) Vital Signs Temp Pulse Pulse Resp BP Pulse Ox 12/27/18 08:02 98 H 133/99 12/27/18 07:59 111 H 116/84 12/27/18 07:56 96 H 128/83 12/27/18 06:30 36.4 C L 91 H 18 112/84 98 12/26/18 23:57 86 118/81 12/26/18 23:35 37.0 C 78 18 100/63 96 Laboratory Results 12/27/18 12/27/18 Range/Units 08:27 08:27 WBC 9.21 (4.8-10.8) K/uL RBC 3.86 L (4.7-6.1) M/uL Hgb 12.0 L (14.0-18.0) g/dL Hct 34.5 L (42-52) % MCV 89.4 (80-100) fL MCH 31.1 (25-34) pg MCHC 34.8 (32-36) g/dL RDW Std Deviation 42.6 (36.4-46.3) fL RDW Coeff of Rachael 13.1 (11.5-14.5) % Plt Count 190 (130-400) K/uL MPV 9.2 (7.4-10.4) fL Sodium 136 (136-145) mmol/L Potassium 3.6 (3.5-5.1) mmol/L Chloride 103 (98-107) mmol/L Carbon Dioxide 25 (21-32) mmol/L Anion Gap 8.0 (3-11) BUN 24 H (7-18) mg/dl Creatinine 1.09 (0.6-1.4) mg/dl Est Cr Clr Drug Dosing 89.0 ml/min Est GFR ( Amer) 83.9 Est GFR (Non-Af Amer) 72.4 BUN/Creatinine Ratio 21.7 H (10-20) Glucose 102 H (70-99) mg/dl Calcium 8.8 (8.5-10.1) mg/dl PG Care Time/CCT Total # of Minutes Spent Total Time Spent with Patient: Total time spent is greater than 50% in coordination of care (as documented) at patient's floor/unit and/or counseling patient:
[2018-12-27] MEDS ORDERED: BUSPIRONE HCL 7.5 MG TAB PO SCH (14:05)
--- NOTE | 2018-12-31 22:17 | Discharge Summary ---
Date of Service December 31, 2018 Admission HPI Per Admitting Provider This is a patient with chronic right knee pain for multiple years. He had been treated conservatively for knee osteoarthritis, however he has failed all conservative management. He is now being set up for surgical tx. Principal Diagnosis right knee osteoarthritis Discharge Exam Constitutional well developed and well nourished; no acute distress ENMT external ear and nose normal, oropharynx normal Neck trachea midline, no thyromegaly Respiratory normal respiratory effort, lungs clear to auscultation Cardiovascular Rate/Rhythm: regular rate and regular rhythm Gastrointestinal (Abdomen) normal bowel sounds, soft, nontender, no hepatosplenomegaly Musculoskeletal Gait: + limp (right side) Knee: + surgical incision (right knee: Silverlon dressing in place. ); no deformity, no effusion (right), no skin erythema, no ecchymosis and no crepitation with knee ROM (right knee) Skin no rashes, warm and dry Neurologic normal touch/pain/proprioception Psychiatric A+Ox3, euthymic affect Lymphatic no cervical or axillary lymphadenopathy Discharge Data Allergies Allergy/AdvReac Type Severity Reaction Status Date / Time dog dander Allergy Unknown CAT DOG Verified 12/24/18 06:11 DANDER-ITCHY EYES, STUFFY NOSE grass pollen-perennial rye, Allergy Unknown GRASS,TREES Verified 12/24/18 06:11 standar CONGESTION No Known Drug Allergies Allergy Unknown NONE Verified 12/24/18 06:11 pollen extracts Allergy Unknown ITCHY Verified 12/24/18 06:11 EYES, STUFFY NOSE Consultations 12/24/18 11:38 Consult Case Management - Discharge Planning Routine Consult Hospitalist Routine Procedures Performed Operation Date: 12/24/18 07:30 Actual Procedures p Right Total Knee Arthroplasty(Right) - Ed Griffith DO Ordered Studies 12/24/18 05:00 US - OR guided needle placemen Routine Hospital Course (1) Osteoarthritis of right knee: Postop day 3 status post right total knee arthroplasty. Begin PT/OT protocols. Weightbearing as tolerated. DVT prophylaxis with aspirin, SCDs, RHONDA hose Pain management with acetaminophen IV hydromorphone and p.o. oxycodone DC planning-possibly home today. Will have medicine re-evaluate patient for they orthostatic hypotension. Will recheck patient later in the day for possible d/c. Total Time Total Time Spent Total Time Spent (In Minutes): 60 Total Time Includes: Examination of the Patient, Discharge Planning and Medication Reconciliation Discharge Plan Discharge Items Patient Disposition: Home - Self-Care Reason For Visit: RIGHT KNEE OSTEOARTHRITIS & CONTRACTURE Discharge Diagnosis: right knee osteoarthritis Activity: Per Instructions section Weightbearing: Right weightbearing Weightbearing Comment: as tolerated with walker Non-emergency contact: Surgeon Call non-emergency contact if: your pain is not controlled, your temperature is above 101.5, your wound has increased redness and your wound has increased drainage Follow-up/Referrals: Geo Barker MD [Primary Care Provider] - Diet: Regular Addtl Attending Provider Instructions: ACTIVITY RECOMMENDATIONS: SELF CARE INSTRUCTIONS AFTER TOTAL KNEE REPLACEMENT A. You may need to continue a physical therapy program after discharge from the hospital. There are several options available to you. Your doctor will assist you in selecting the best one for you. 1. An out-patient facility 2 to 3 times a week for therapy or home therapy. 2. Continue working on all exercises taught to you in the hospital. Your goals should be to increase bending of your knee to 90 degrees and beyond and to fully straighten your knee. B. You may progress at your own pace from walking with a walker or crutches to a cane; then to no assistive devices. C. Make walking a part of your daily routine. Be up as much as comfortable with rest periods throughout the day. Rest with leg elevation is very important. Use the ice wrap frequently for the first 3-4 weeks. D. There are no restrictions on activities. You may ride in a car, shop, participate in director supplier quality and all social activities. E. Wear the long elastic stockings (RHONDA hose) 20 hours a day for one month after surgery. They can be removed several times a day for laundering and for a bath. F. Silverlon: You have a Silverlon dressing on the right knee incision. It will remain in place for 7 days from the day of your surgery. After 7 days, you may remove the dressing, just as you would remove a bandaid. You may shower with the Silverlon dressing in place. However, if you notice any water within the dressing, the dressing should be removed. You may cover the incision with a dry dressing once the silverlon is removed if there is any drainage. SPECIAL CARE INSTRUCTIONS: VERY IMPORTANT TO READ AND REVIEW A. Take Aspirin (blood thinning medications) as directed by your doctor. If on Coumadin, have a pro-time (blood test) drawn according to your doctor's instructions. This will tell the doctor how well the Coumadin is thinning your blood. B. There are a few signs you need to watch for after you are home. Call [facility] if you notice any of the followin. Increased severe knee pain. Some pain is expected especially when you exercise. 2. Increased swelling in your leg or knee; pain or swelling of the calf muscle in either lower leg. 3. Any fluid drainage from the incision. 4. Shortness of breath or chest pain. C. Please call [facility] at if you have any concerns or questions about your operation or recovery. The doctor or his nurse will return your call promptly. D. You must take antibiotics before dental work, bladder, bowel or other surgery. Your doctor will provide you with a permanent care to carry describing this precaution. * CALL IF INCREASED PAIN, REDNESS, DRAINAGE OR FEVER GREATER THAT 101 F. * WEAR RHONDA HOSE 20 HOURS PER DAY FOR 4 WEEKS. FOLLOW UP VISIT: If appointment is not already scheduled: Please call [facility] to make a follow-up appointment for 2 weeks after your surgery to have teresita removed at . Addtl Senior Compliance Analyst Provider Instructions: You have been given a prescription for buspar (Buspirone) 7.5mg for your anxiety. You should take this twice a day, and dose may be increased by your primary care provider at your follow-up visit. Pending Studies at Discharge: No Stand-Alone Forms: My [facility], Opioid Pain Management Medications and DC Order Prescriptions: New aspirin [Ecotrin Low Strength] 81 mg Tablet,Delayed Release (Dr/Ec) 81 mg PO BID 30 Days Qty: 60 RF: 0 acetaminophen [Tylenol Extra Strength] 500 mg Tablet 1,000 mg PO Q8 14 Days Qty: 84 RF: 0 sennosides [Senokot] 8.6 mg Tablet 17.2 mg PO HS PRN (Reason: constipation) Qty: 30 RF: 0 hydrocodone-acetaminophen 5-325 mg tablet 1 - 2 tab PO Q6H PRN (Reason: pain) Qty: 30 RF: 0 buspirone 7.5 mg tablet 7.5 mg PO BID 10 Days Qty: 20 RF: 0 Continued tamsulosin 0.4 mg Capsule 0.4 mg PO QAM RF: 0 pantoprazole 40 mg Tablet,Delayed Release (Dr/Ec) 40 mg PO QAM RF: 0 lisinopril-hydrochlorothiazide tablet 20 mg PO DAILY RF: 0 potassium tablet 10 meq PO DAILY RF: 0 Discontinued meloxicam 15 mg Tablet 15 mg PO QAM RF: 0 Discharge Orders: Discharge Order (Routine); Ordered 12/27/18 Ordered By: Andrew Vasquez/Other Patient Handouts: DVT Prevent, Replacement Knee Home After, Replacement Knee First Month, Surgery Joint Home Safety Admission Data Admit Date/Time: 12/24/18 10:48 Attending Provider: Ed Griffith Admit Provider: Ed Griffith Primary Care Provider: Geo Barker Other Providers: Kathy Iqbal ; Ana Hays ; Jeff Julien ; Hira Miramontes ; Shellie Lunsford ; Ivan Arias ; Oswaldo Montanez ; Diaz Love ; Love Fernandez ; Mulu Cabrera ; Ashley Hope ; Tyrel Valdez ; Kvng Wesley ; Jim Cohen ; Kathy Patel ; Yohannes Bowden ; Alberta Hernandez ; Jose Ram ; Arias Enirquez ; Jeff Hardwick ; Parrish Ritchie ; Gertrude Caldera ; Clifton Jarrell ; Simon Wong ; Josie Montero ; Shreyas Prater ; Hao Mckenna. Other Interventions: Discharge Summary Assessment (RN) Last Done: 12/27/18 13:39 DC Date/Time DO NOT enter until pt leaves facility: 12/27/18 17:30
== END 2018-12-27 17:30 | disposition home or self-care (01) | DRG 470 ==
LOC: ASU 05:43 → 3E 10:48

== ENCOUNTER 2021-01-29 15:01 | Inpatient (IN) ==
[2021-01-29 18:26] LABS: Hematocrit (blood only) 38.3 % (42-52); Hemoglobin 12.9 g/dL (14.0-18.0); Immature Granulocytes # (auto) 0.06 K/uL (0.00-0.02); Immature Granulocytes % (auto) 0.3 %; Lymphocytes # (auto) 0.54 K/uL (1.2-3.4); Mean Corpuscular Hemoglobin 30.9 pg (25-34); Mean Corpuscular Hgb Conc 33.7 g/dL (32-36); Mean Corpuscular Volume 91.8 fL (80-100); Mean Platelet Volume 9.8 fL (7.4-10.4); Monocytes # (auto) 0.91 K/uL (0.11-0.59); Monocytes % (auto) 5.1 %; Neutrophils # (auto) 16.46 K/uL (1.4-6.5); Neutrophils % (auto) 91.6 %; Platelet Count 212 K/uL (130-400); RDW Coefficient of Variation 14.1 % (11.5-14.5); RDW Standard Deviation 47.3 fL (36.4-46.3); Red Blood Count 4.17 M/uL (4.7-6.1); White Blood Count 17.97 K/uL (4.8-10.8)
[2021-01-29 18:47] LABS: Albumin Level 3.5 gm/dl (3.4-5.0); BUN Creatinine Ratio 22.7 (10-20); Creatinine Clr Calc Pharmacy 101.8 ml/min; Est GFR (African American) 101.5 ml/min; Est GFR (Non-African American) 87.6 ml/min; Potassium 3.2 mmol/L (3.5-5.1)
[2021-01-29 18:50] LABS: Albumin Globulin Ratio 0.9 (0.9-2); Bilirubin,Total 1.7 mg/dl (0.2-1); Globulin 4.1 gm/dl (2.5-4.0); Total Protein 7.6 gm/dl (6.4-8.2)
[2021-01-29] MEDS ORDERED: SODIUM CHLORIDE 0.9% 1000ML 500 ML IV ONE (20:05)
[2021-01-29] MEDS ORDERED: ONDANSETRON INJ 2 MG/ML 2 ML VIAL IV STA (20:05)
[2021-01-29] MEDS ORDERED: MoRPHine SULFATE 4 MG/ML 1 ML CARP\\VIAL IV STA (20:05)
--- NOTE | 2021-01-29 20:11 | Emergency Department Note ---
Impression & Plan Prosthetic joint infection, History of arthroplasty of right knee ED Provider Note Provider: Luiz Contreras MD DATE OF SERVICE: 01/29/2021 CHIEF COMPLAINT: Knee infection HISTORY OF PRESENT ILLNESS: Patient is a 65-year-old gentleman history of hypertension presenting here today with a knee infection in the right knee. Patient approximately 2 years ago had a right knee replacement by Dr. Griffith. Patient's had some swelling since then and about 2 weeks ago the patient reports that he had a procedure to help try to reduce this with some incisions on this right knee. After that began developed increasing swelling of significance with some fevers and some chills. Patient states given this seen by his family doctor and referred to the [place] emergency room for further evaluation. Comes with records from there. Patient was seen there and blood work and cultures completed. Ultrasound of the leg as well as x-rays obtained. No evidence of DVT. White blood cell count was elevated this concern for knee infection. Due to the extreme volumes and limited bed availability given the pandemic transfer here was complicated and the patient eventually decided to sign out and drive [facility] with his himself. Patient states he received some pain medicine. Bring some paperwork from the facility. Patient states pain with walking or trying to bend the right knee. REVIEW OF SYSTEMS: A total of 10 review of systems was obtained and negative except as stated above in the HPI. PAST MEDICAL HISTORY: As noted above MEDICATIONS: Reviewed home medications SOCIAL HISTORY: Lives at home with PHYSICAL EXAM: GENERAL: alert and oriented in no acute distress on stretcher slightly fatigued Head: normocephalic and atraumatic EYES: No injection, discharge or icterus. NECK: Trachea midline. Supple. LUNGS: Airway patent. No retractions. HEART: Regular rate and rhythm. No chest wall tenderness ABDOMEN: Soft and non-tender, without guarding or rebound. SKIN: Acyanotic, warm, dry, without rashes EXTREMITIES: Without swelling, tenderness or deformity except for significant swelling with areas of erythema of the right knee with 2 what appear to be arthroscopic ports in the anterior aspect of both surrounding with erythema. Few small sutures appear present and some purulent discharge easily expressed from this. Contusion surrounding the knee and to the posterior aspect the knee are noted. No significant swelling of the foot and 1+ pulse of the right foot as well as intact sensation is noted here. NEUROLOGICAL: No focal deficits but limited ROM and movement of the R knee 2/2 pain and swelling. No aphasia. No facial droop or slurred speech. Sensation to gross touch normal. Patient's laboratory studies and imaging reviewed. Differential includes Cellulitis, abscess, MRSA infection, DVT, necrotizing fasciitis, dermatitis, drug eruption, allergic reaction, septic joint, fracture as well as other pathologies. IMPRESSION/MEDICAL DECISION MAKING: Patient given some pain medication. Blood work was drawn here. Surface culture and blood culture sent. Received vancomycin and cefepime at the outside hospital per the available records. We will continue these here. Discussed with orthopedics. Will likely need surgical debridement. Orthopedics [facility] amos mmended patient be medically admitted and they will follow in consultation with plan for operative intervention tomorrow. Significant leukocytosis. Not septic. No lactate elevation. Neurovascular intact in the right foot. X-rays report reviewed. Hospitalist contacted. Patient and updated at bedside. 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 Orthopedics to follow in consultation Past Med/Surg History Medical History (Updated 01/29/21 @ 23:42 by Luiz Contreras M.D.) History of anxiety History of kidney stones Hypertension Osteoarthritis on PPI preventative while on NSAIDs Sleep apnea did not tolerate device; s/p UPPP Surgical History (Updated 01/29/21 @ 23:42 by Luiz Contreras M.D.) History of appendectomy History of arthroscopy of left knee History of arthroscopy of left shoulder History of arthroscopy of right knee History of arthroscopy of right shoulder History of back surgery X2 LOWER BACK History of brain surgery X2 - DERMOID CYSTS REMOVED History of colonoscopy History of neck surgery DISC OUT/HARDWARE IN History of toe surgery RIGHT BIG TOE History of tonsillectomy History of total left knee replacement (TKR) History of total replacement of left shoulder joint History of total replacement of right shoulder joint History of total right knee replacement History of urologic surgery KIDNEY STONES REMOVED History of uvulopalatopharyngoplasty LASERED OFF UVULA Family History Mother Family history of diabetes mellitus (DM) Social History Smoking Status: Never smoker Hx Alcohol Use: Yes Alcohol type: beer Hx Substance Use: No Preferred Language: Urdu Communication Ability: Effective Polisher Dial Required: No Beliefs That Will Affect Care: None marital status: Current Living Situation: Spouse and Family Feels Safe at Home: Yes Assistive Devices: Walker Allergies Allergies Allergy/AdvReac Type Severity Reaction Status Date / Time dog dander Allergy Unknown CAT DOG Verified 01/29/21 20:50 DANDER-ITCHY EYES, STUFFY NOSE grass pollen-perennial rye, Allergy Unknown GRASS,TREES Verified 01/29/21 20:50 standar CONGESTION No Known Drug Allergies Allergy Unknown NONE Verified 01/29/21 20:50 pollen extracts Allergy Unknown ITCHY Verified 01/29/21 20:50 EYES, STUFFY NOSE Home Meds Home Medications Medication Instructions Recorded Confirmed pantoprazole 40 mg tablet,delayed 40 mg PO QAM 11/22/18 01/29/21 release tamsulosin 0.4 mg capsule 0.4 mg PO QAM 11/22/18 01/29/21 gabapentin 300 mg capsule 300 mg PO QAM 01/29/21 01/29/21 lisinopril 20 1 tab PO QA 01/29/21 01/29/21 mg-hydrochlorothiazide 25 mg tablet meloxicam 15 mg tablet 15 mg PO QAM 01/29/21 01/29/21 potassium chloride 10 mEq 10 meq PO QAM 01/29/21 01/29/21 capsule,extended release Results & Data (ED) Vital Signs Vital Signs - 24 hr 01/29/21 15:54 Temperature 36.8 C Temperature Source Temporal Artery Scan Pulse Rate 82 Respiratory Rate 18 Blood Pressure 124/76 Blood Pressure Mean 92 Pulse Oximetry 96 Oxygen Delivery Method Room Air Sepsis Recent Fever Within 48 Hours No Sepsis New/Unexplained Change in Mental Status N/A Sepsis Action Taken by Nursing No Action Required Laboratory Data Result diagrams: 01/29/21 18:09 01/29/21 18:09 Lab Results 01/29/21 01/29/21 01/29/21 Range/Units 18:09 18:09 18:09 WBC 17.97 H (4.8-10.8) K/uL RBC 4.17 L (4.7-6.1) M/uL Hgb 12.9 L (14.0-18.0) g/dL Hct 38.3 L (42-52) % MCV 91.8 (80-100) fL MCH 30.9 (25-34) pg MCHC 33.7 (32-36) g/dL RDW Std Deviation 47.3 H (36.4-46.3) fL RDW Coeff of Rachael 14.1 (11.5-14.5) % Plt Count 212 (130-400) K/uL MPV 9.8 (7.4-10.4) fL Immature Gran % (Auto) 0.3 % Neut % (Auto) 91.6 % Lymph % (Auto) 3.0 % Petroleum % (Auto) 5.1 % Eos % (Auto) 0.0 % Baso % (Auto) 0.0 % Neut # (Auto) 16.46 H (1.4-6.5) K/uL Lymph # (Auto) 0.54 L (1.2-3.4) K/uL Petroleum # (Auto) 0.91 H (0.11-0.59) K/uL Eos # (Auto) 0.00 (0-0.5) K/uL Baso # (Auto) 0.00 (0-0.2) K/uL Immature Gran # (Auto) 0.06 H (0.00-0.02) K/uL ESR (0-20) mm/hr Sodium 133 L (136-145) mmol/L Potassium 3.2 L (3.5-5.1) mmol/L Chloride 99 (98-107) mmol/L Carbon Dioxide 24 (21-32) mmol/L Anion Gap 10.0 (3-11) BUN 21 H (7-18) mg/dl Creatinine 0.92 (0.6-1.4) mg/dl Est Cr Clr Drug Dosing 101.8 ml/min Est GFR ( Amer) 101.5 ml/min Est GFR (Non-Af Amer) 87.6 ml/min BUN/Creatinine Ratio 22.7 H (10-20) Glucose 128 H (70-99) mg/dl Lactate 1.7 (0.4-2.0) mmol/L Calcium 9.0 (8.5-10.1) mg/dl Total Bilirubin 1.7 H (0.2-1) mg/dl AST 10 L (15-37) U/L ALT 19 (12-78) U/L Alkaline Phosphatase 60 (45-117) U/L C-Reactive Protein (0-0.29) mg/dl Total Protein 7.6 (6.4-8.2) gm/dl Albumin 3.5 (3.4-5.0) gm/dl Globulin 4.1 H (2.5-4.0) gm/dl Albumin/Globulin Ratio 0.9 (0.9-2) SARS-CoV-2, RNA, NAAT (NEGATIVE) 01/29/21 01/29/21 01/29/21 Range/Units 18:09 18:09 21:12 WBC (4.8-10.8) K/uL RBC (4.7-6.1) M/uL Hgb (14.0-18.0) g/dL Hct (42-52) % MCV (80-100) fL MCH (25-34) pg MCHC (32-36) g/dL RDW Std Deviation (36.4-46.3) fL RDW Coeff of Rachael (11.5-14.5) % Plt Count (130-400) K/uL MPV (7.4-10.4) fL Immature Gran % (Auto) % Neut % (Auto) % Lymph % (Auto) % Petroleum % (Auto) % Eos % (Auto) % Baso % (Auto) % Neut # (Auto) (1.4-6.5) K/uL Lymph # (Auto) (1.2-3.4) K/uL Petroleum # (Auto) (0.11-0.59) K/uL Eos # (Auto) (0-0.5) K/uL Baso # (Auto) (0-0.2) K/uL Immature Gran # (Auto) (0.00-0.02) K/uL ESR 44 H (0-20) mm/hr Sodium (136-145) mmol/L Potassium (3.5-5.1) mmol/L Chloride (98-107) mmol/L Carbon Dioxide (21-32) mmol/L Anion Gap (3-11) BUN (7-18) mg/dl Creatinine (0.6-1.4) mg/dl Est Cr Clr Drug Dosing ml/min Est GFR ( Amer) ml/min Est GFR (Non-Af Amer) ml/min BUN/Creatinine Ratio (10-20) Glucose (70-99) mg/dl Lactate (0.4-2.0) mmol/L Calcium (8.5-10.1) mg/dl Total Bilirubin (0.2-1) mg/dl AST (15-37) U/L ALT (12-78) U/L Alkaline Phosphatase (45-117) U/L C-Reactive Protein 24.70 H (0-0.29) mg/dl Total Protein (6.4-8.2) gm/dl Albumin (3.4-5.0) gm/dl Globulin (2.5-4.0) gm/dl Albumin/Globulin Ratio (0.9-2) SARS-CoV-2, RNA, NAAT NEGATIVE (NEGATIVE) Administered Medications Vancomycin HCl 2,000 mg/ (Sodium Chloride) 540 mls @ 200 mls/hr IV NOW ONE Stop: 01/30/21 00:03 Last Admin: 01/29/21 21:57 Dose: 200 mls/hr Documented by: [id number] Discontinued Medications Sodium Chloride (Nss 1000ml) 500 mls @ 999 mls/hr IV .Q31M ONE Stop: 01/29/21 20:35 Last Admin: 01/29/21 20:29 Dose: 999 mls/hr Documented by: [id number] Cefepime HCl (Maxipime) 2,000 mg in 20 mls @ 5 mls/min IV NOW STA; Protocol Stop: 01/29/21 20:58 Last Admin: 01/29/21 21:09 Dose: 5 mls/min Documented by: [id number] Morphine Sulfate (Morphine Sulfate 4 Mg/Ml 1 Ml Carp\Vial) 4 mg IV NOW STA Stop: 01/29/21 20:06 Last Admin: 01/29/21 20:29 Dose: 4 mg Documented by: [id number] Ondansetron HCl (Ondansetron Inj 2 Mg/Ml 2 Ml Vial) 4 mg IV NOW STA Stop: 01/29/21 20:06 Last Admin: 01/29/21 20:29 Dose: 4 mg Documented by: [id number] Imaging Data Radiologist's Impression: Knee X-Ray 01/29/21 20:10 XR knee RT 1 or 2V routine HISTORY: 65 years-old Male infection acute pain and swelling of the right knee COMPARISON: 12/24/2018 TECHNIQUE: 3 views of the right knee FINDINGS: Right knee total joint arthroplasty and patella resurfacing. No evidence of hardware fracture or loosening. Large joint effusion with moderate circumferential soft tissue swelling of the distal femur and anterior knee. No acute fracture, dislocation or osseous erosion. Bony spurring of the lateral femoral condyle. IMPRESSION: 1. No acute fracture or dislocation. 2. Large joint effusion with moderate soft tissue swelling. ACT 112: Negative or not required by law. The above report was generated using voice recognition software. It may contain grammatical, syntax or spelling errors. Electronically signed by: Jose Tanner M.D. 01/29/2021 8:31 PM Discharge Plan Visit Data Chief Complaint: Infection Stated Complaint: WAS AT [facility]/INFECTED R KNEE ED Provider: Luiz Contreras Discharge Problem: Prosthetic joint infection, History of arthroplasty of right knee Patient Disposition: Admitted As Inpatient Discharge Instructions Interventions: ED Discharge Assessment Last Done: 01/29/21 22:35
--- NOTE | 2021-01-29 20:32 | XRay Report ---
XR knee RT 1 or 2V routine HISTORY: 65 years-old Male infection acute pain and swelling of the right knee COMPARISON: 12/24/2018 TECHNIQUE: 3 views of the right knee FINDINGS: Right knee total joint arthroplasty and patella resurfacing. No evidence of hardware fracture or loos ening. Large joint effusion with moderate circumferential soft tissue swelling of the distal femur an d anterior knee. No acute fracture, dislocation or osseous erosion. Bony spurring of the lateral femo ral condyle. IMPRESSION: 1. No acute fracture or dislocation. 2. Large joint effusion with moderate soft tissue swelling. ACT 112: Negative or not required by law. The above report was generated using voice recognition software. It may contain grammatical, syntax o r spelling errors. Electronically signed by: Jose Tanner M.D. 01/29/2021 8:31 PM
[2021-01-29] MEDS ORDERED: CEFEPIME 2,000 MG/20 ML VIAL IV STA (20:55)
[2021-01-29] MEDS ORDERED: VANCOMYCIN CONSULT ACTIVE PRN ×2 (21:22→23:34)
[2021-01-29] MEDS ORDERED: VANCOMYCIN HCL 2,000 MG in SODIUM CHLORIDE 0.9% 500 ML IV ONE (21:22)
--- NOTE | 2021-01-29 21:35 | History & Physical Report ---
Date of Service January 29, 2021 Assessment & Plan (1) Prosthetic joint infection: Plan: 65-year-old male with extensive orthopedic history admitted for worsening swelling of right prosthetic knee likely infected prosthetic joint. 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 at midnight for likely procedure in the a.m. Had been on baby aspirin daily as DVT prophylaxis after arthroscopy, can continue after intervention however defer to orthopedic surgery's recommendations Bilateral Doppler lower extremity for DVT is pending given extensive swelling and bruising on the affected leg IV Tylenol for fevers, IV morphine ordered for as needed pain control Sepsis secondary to prosthetic joint infection Blood cultures pending CRP of 24.7, ESR 44 Elevated WBC to 17.97 with neutrophilic predominance Lactate reportedly elevated in outside ER, 1.7 on check in our ER Currently afebrile, normotensive, not tachycardic Antibiotics as above, trend daily CBC and CRP Received fluid resuscitation in outside ER; 500 mL normal saline bolused and our ER. Maintenance lactated Ringer's ordered Hypokalemia Potassium of 3.2, repleted IV Holding lisinopril hydrochlorothiazide Likely secondary to fluid shifts and above infection GERD On pantoprazole 40 mg p.o. every morning as prophylaxis while also on meloxicam for pain control. Holding both medications at this time while n.p.o. Anemia - hg 12 on admission, MCV 91 - continue to monitor, not symptomatic DVT ppx: daily aspirin therapy FEN/GI: NPO @ [facility] Bowel regimen: prn miralax Code Status: Full Code Dispo: med/surg (2) Sepsis: (3) HTN (hypertension): (4) GERD (gastroesophageal reflux disease): (5) BPH (benign prostatic hyperplasia): (6) LYNSEY (obstructive sleep apnea): History of Present Illness Primary Care Provider: Geo Barker MD Patient is a 65-year-old male with a past medical history of hypertension, GERD, BPH, LYNSEY with history of bilateral knee replacements in the ER today for worsening swelling of right knee. He had been having worsening swelling and pain in the right prosthetic knee and approximately 2 weeks ago had a arthroscopic intervention to try and improve the swelling and pain. He states that approximately 3-4 days ago he noticed that his right knee was swollen more than usual and was actively seeping into his jeans. He went to his local emergency department to be evaluated whereupon they performed a joint injection took a sample of the fluid and sent him home. He was able to walk and maneuver on his leg for most of the weekend without much issue. Yesterday he started to feel somewhat ill with chills and sweats. Earlier today he noticed that his knee had swollen up and was seeping again now out of the new incision line from his arthroscopy 2 weeks ago and was once again soaking his jeans and his leg. He states that it was difficult to identify the fluid given that it was soaked into clothing however he would describe it as yellowish and cloudy. He also at this time noted that he had some reddish-black bruising at the base of his right foot which he had not seen before. He was evaluated at the other emergency department again today where they started a work-up for a septic prosthetic joint and discussed the case with his orthopedic surgeon. He was directed to our emergency department/hospital at the request of the orthopedic surgeon for intervention. Patient does note that on his way from the outside ER to our hospital he had multiple bouts of nausea and emesis. He states that these were nonbloody nonbilious and without coffee-ground emesis. He states that at the outside ER he did have a fever and was experiencing the sweats again but is not sure how high his fever got. Review of outside ER note in the chart shows that he had an elevated lactate level, mild tachycardia, soft blood pressures that improved with fluid resuscitation. He received Dilaudid and cefepime the outside ER prior to being sent here. The patient states that he had ultrasounds of his legs performed at the outside ER however there is no mention of these in the paperwork sent over thus we will repeat them. He has been on a an 81 mg baby aspirin daily after having his arthroscopy 2 weeks ago. Allergies Allergy/AdvReac Type Severity Reaction Status Date / Time dog dander Allergy Unknown CAT DOG Verified 01/29/21 20:50 DANDER-ITCHY EYES, STUFFY NOSE grass pollen-perennial rye, Allergy Unknown GRASS,TREES Verified 01/29/21 20:50 standar CONGESTION No Known Drug Allergies Allergy Unknown NONE Verified 01/29/21 20:50 pollen extracts Allergy Unknown ITCHY Verified 01/29/21 20:50 EYES, STUFFY NOSE Home Medications Medication Instructions Recorded Confirmed Type pantoprazole 40 mg tablet,delayed 40 mg PO QAM 11/22/18 01/29/21 History release tamsulosin 0.4 mg capsule 0.4 mg PO QAM 11/22/18 01/29/21 History gabapentin 300 mg capsule 300 mg PO QAM 01/29/21 01/29/21 History lisinopril 20 1 tab PO QAM 01/29/21 01/29/21 History mg-hydrochlorothiazide 25 mg tablet meloxicam 15 mg tablet 15 mg PO QAM 01/29/21 01/29/21 History potassium chloride 10 mEq 10 meq PO QAM 01/29/21 01/29/21 History capsule,extended release Past Med/Surg History Medical History Anemia History of anxiety History of kidney stones Hypertension Osteoarthritis on PPI preventative while on NSAIDs Sleep apnea did not tolerate device; s/p UPPP Surgical History History of appendectomy History of arthroscopy of left knee History of arthroscopy of left shoulder History of arthroscopy of right knee History of arthroscopy of right shoulder History of back surgery X2 LOWER BACK History of brain surgery X2 - DERMOID CYSTS REMOVED History of colonoscopy History of neck surgery DISC OUT/HARDWARE IN History of toe surgery RIGHT BIG TOE History of tonsillectomy History of total left knee replacement (TKR) History of total replacement of left shoulder joint History of total replacement of right shoulder joint History of total right knee replacement History of urologic surgery KIDNEY STONES REMOVED History of uvulopalatopharyngoplasty LASERED OFF UVULA Family History Mother Family history of diabetes mellitus (DM) Social History Smoking Status: Former smoker Cigarettes Per Day: used to smoke 1-2 packs a day; quit 30yrs ago; Second Hand Exposure: No; Do You Dip or Chew Tobacco: No; Tobacco Cessation Education Requested by Patient: No Hx Alcohol Use: Yes Alcohol type: beer Hx Substance Use: No Preferred Language: Armenian Communication Ability: Effective Notching Press Operator Required: No Beliefs That Will Affect Care: None marital status: Current Living Situation: Family How many Children do You have: 1 Other Information That Helps Us Care for You: No Feels Safe at Home: Yes Safety Concerns: Feels Safe At This Time Assistive Devices: Cane, Crutches and Walker Review of Systems Constitutional: + fever, + chills, + sweats and + fatigue Respiratory: no cough, no dyspnea and no pain on inspiration Cardiovascular: no chest pain, no dyspnea on exertion, no orthopnea and no palpitations Gastrointestinal: + nausea and + vomiting; no coffee ground emesis, no hematemesis, no change in stools and no diarrhea/loose stools Musculoskeletal: + joint pain Integumentary: + unusual bruising Neurologic: no unsteadiness, no falls, no tingling and no numbness Physical Exam Physical Exam: Constitutional: in no apparent distress, sitting comfortably in bed. Eyes: EOMI, pupils equal and reactive bilaterally, no scleral icterus Cardiac: RRR, no murmurs, gallops or rubs. Normal S1, S2 Pulm: CTA BL, no wheezes, rhonchi, crackles or rubs, moving air well throughout both lungs Abd: soft, nontender, nondistended, normal bowel sounds, no rebound or guarding Extremities/Skin/Vasc: R Leg: - visibly swollen compared to left, extensive ecchymosis in various stages of healing from popliteal fossa down posterior compartment of leg to base of foot. yellowish exudate dried on knee brace/wrap. - ROM severely limited due to pain - no pain with active or passive flexion/extension of right ankle - negative fantasma's sign - warm to touch, no erythema - 2+ DP pulse, unable to palpate PT. - 2+ pitting edema to midcalf L leg: - no swelling, ecchymosis, discoloration - full ROM, not warm, no erythema - 2+ DP and PT pulses, negative fantasma's Results & Data Results & Data ([facility]) Vital Signs (Past 12 Hours) Vital Signs Temp Pulse Resp BP Pulse Ox 01/29/21 15:54 36.8 C 82 18 124/76 96 Vital Signs Temp Pulse Resp BP Pulse Ox 01/29/21 15:54 36.8 C 82 18 124/76 96 Intake and Output 01/29/21 01/29/21 01/29/21 07:59 15:59 23:59 Other: Weight 102 kg Patient Weight 01/29/21 23:59 Weight 102 kg Laboratory Results Laboratory Results WBC 17.97 K/uL (4.8-10.8) H 01/29/21 18:09 RBC 4.17 M/uL (4.7-6.1) L 01/29/21 18:09 Hgb 12.9 g/dL (14.0-18.0) L 01/29/21 18:09 Hct 38.3 % (42-52) L 01/29/21 18:09 MCV 91.8 fL (80-100) 01/29/21 18:09 MCH 30.9 pg (25-34) 01/29/21 18:09 MCHC 33.7 g/dL (32-36) 01/29/21 18:09 RDW Std Deviation 47.3 fL (36.4-46.3) H 01/29/21 18:09 RDW Coeff of Rachael 14.1 % (11.5-14.5) 01/29/21 18:09 Plt Count 212 K/uL (130-400) 01/29/21 18:09 MPV 9.8 fL (7.4-10.4) 01/29/21 18:09 Immature Gran % (Auto) 0.3 % 01/29/21 18:09 Neut % (Auto) 91.6 % 01/29/21 18:09 Lymph % (Auto) 3.0 % 01/29/21 18:09 Lawrence % (Auto) 5.1 % 01/29/21 18:09 Eos % (Auto) 0.0 % 01/29/21 18:09 Baso % (Auto) 0.0 % 01/29/21 18:09 Neut # (Auto) 16.46 K/uL (1.4-6.5) H 01/29/21 18:09 Lymph # (Auto) 0.54 K/uL (1.2-3.4) L 01/29/21 18:09 Lawrence # (Auto) 0.91 K/uL (0.11-0.59) H 01/29/21 18:09 Eos # (Auto) 0.00 K/uL (0-0.5) 01/29/21 18:09 Baso # (Auto) 0.00 K/uL (0-0.2) 01/29/21 18:09 Immature Gran # (Auto) 0.06 K/uL (0.00-0.02) H 01/29/21 18:09 ESR 44 mm/hr (0-20) H 01/29/21 18:09 Sodium 133 mmol/L (136-145) L 01/29/21 18:09 Potassium 3.2 mmol/L (3.5-5.1) L 01/29/21 18:09 Chloride 99 mmol/L (98-107) 01/29/21 18:09 Carbon Dioxide 24 mmol/L (21-32) 01/29/21 18:09 Anion Gap 10.0 (3-11) 01/29/21 18:09 BUN 21 mg/dl (7-18) H 01/29/21 18:09 Creatinine 0.92 mg/dl (0.6-1.4) 01/29/21 18:09 Est Cr Clr Drug Dosing 101.8 ml/min 01/29/21 18:09 Est GFR ( Amer) 101.5 ml/min 01/29/21 18:09 Est GFR (Non-Af Amer) 87.6 ml/min 01/29/21 18:09 BUN/Creatinine Ratio 22.7 (10-20) H 01/29/21 18:09 Glucose 128 mg/dl (70-99) H 01/29/21 18:09 Lactate 1.7 mmol/L (0.4-2.0) 01/29/21 18:09 Calcium 9.0 mg/dl (8.5-10.1) 01/29/21 18:09 Total Bilirubin 1.7 mg/dl (0.2-1) H 01/29/21 18:09 AST 10 U/L (15-37) L 01/29/21 18:09 ALT 19 U/L (12-78) 01/29/21 18:09 Alkaline Phosphatase 60 U/L (45-117) 01/29/21 18:09 C-Reactive Protein 24.70 mg/dl (0-0.29) H 01/29/21 18:09 Total Protein 7.6 gm/dl (6.4-8.2) 01/29/21 18:09 Albumin 3.5 gm/dl (3.4-5.0) 01/29/21 18:09 Globulin 4.1 gm/dl (2.5-4.0) H 01/29/21 18:09 Albumin/Globulin Ratio 0.9 (0.9-2) 01/29/21 18:09 SARS-CoV-2, RNA, NAAT NEGATIVE (NEGATIVE) 01/29/21 21:12 Impressions Knee X-Ray 01/29/21 20:10 XR knee RT 1 or 2V routine HISTORY: 65 years-old Male infection acute pain and swelling of the right knee COMPARISON: 12/24/2018 TECHNIQUE: 3 views of the right knee FINDINGS: Right knee total joint arthroplasty and patella resurfacing. No evidence of hardware fracture or loosening. Large joint effusion with moderate circumferential soft tissue swelling of the distal femur and anterior knee. No acute fracture, dislocation or osseous erosion. Bony spurring of the lateral femoral condyle. IMPRESSION: 1. No acute fracture or dislocation. 2. Large joint effusion with moderate soft tissue swelling. ACT 112: Negative or not required by law. The above report was generated using voice recognition software. It may contain grammatical, syntax or spelling errors. Electronically signed by: Jose Tanner M.D. 01/29/2021 8:31 PM Supervising Physician Co-Signing Physician Notes Attending addendum: I have physically seen this patient, have supervised the medical residents activities, and agree with the H&P unless as otherwise noted. Assessment and Plan: Right knee prostatic joint infection/sepsis- Continue vancomycin IV and cefepime IV per pharmacokinetic monitoring Bilateral lower extremity venous Dopplers to assess for DVT Pain control with IV Tylenol, IV morphine as needed Orthopedic surgery aware with plans for joint washout in the a.m. Follow serial CBC with differential and chemistry profile Remaining orders and notations as noted Resident Activity Tracking Resident Involvement: Resident Care Provided Care Provided: Adult [facility] Medicine
[2021-01-29] MEDS ORDERED: MoRPHine SULFATE 2 MG/ML CARP IV PRN (23:34)
[2021-01-29] MEDS ORDERED: ONDANSETRON INJ 2 MG/ML 2 ML VIAL IV PRN (23:34)
[2021-01-29] MEDS ORDERED: ACETAMINOPHEN 1000 MG/100 ML IV IV PRN (23:34)
[2021-01-30] MEDS: LACTATED RINGER'S 1,000 ML IV SCH ×4 (00:06→20:19)
[2021-01-30] MEDS ORDERED: LACTATED RINGER'S 500 ML IV ONE ×2 (01:10→01:39)
--- NOTE | 2021-01-30 06:30 | Ultrasound Report ---
US venous doppler LE BI CLINICAL HISTORY: Bl LE swelling, ecchymosis COMPARISON: None available at the time of this dictation. TECHNIQUE: Bilateral lower extremity real-time compression venous ultrasound with Color Doppler imagi ng. Utilizing real-time ultrasonic imaging multiple real time high-resolution ultrasonic images with comp ression and noncompression maneuvers of the deep venous system in addition to color doppler imaging w ere performed from the common femoral vein through the proximal calf veins. FINDINGS: Currently there is normal compressibility of the deep venous system from the common femoral vein thro ugh the proximal calf veins. No current evidence of acute thrombosis is identified. Impression: No evidence of deep venous thrombus. ACT 112: Negative or not required by law. Electronically signed by: Aiden Wheat M.D. 01/30/2021 6:28 AM
--- NOTE | 2021-01-30 06:37 | Hospitalist Progress Note ---
Date of Service January 30, 2021 Assessment & Plan (1) Prosthetic joint infection: Plan: 65-year-old male with extensive orthopedic history admitted for worsening swe lling of right prosthetic knee for possibly infected prosthetic joint. overnight events: Hypotensive overnight, responded to fluids. Prosthetic joint infection of right knee (history of total knee replacement) X-ray of knee showing large joint effusion with moderate soft tissue swelling In setting of arthroscopic intervention approximately 2 weeks ag Gram stain and culture of fluid pending Started on vanc and cefepime; after prelim wound cultures growing staph, dc'd cefepime Orthopedic team consulted, planned aspiration and I&D procedure 01/30/21 PM Venous doppler BLE neg for DVT IV Tylenol for fevers, IV morphine ordered for as needed pain control Sepsis secondary to prosthetic joint infection -Febrile to 38.0C tmax at admission Blood cultures pending. Wound cultures w/ prelim few staph. CRP of 24.7, ESR 44 Elevated WBC to 17.97 with neutrophilic predominance Lactate reportedly elevated in outside ER, 1.7 on check in our ER transient hypotension overnight as above, responded to 500mL bolus x2 and maintenance fluids. Maintaining systolics >100s - q30m BP vitals checks ordered this AM, since transitioned to q1h Antibiotics as above, trend daily CBC and CRP Hypokalemia, repleting -Repleting, follow BMP GERD On pantoprazole 40 mg p.o. every morning as prophylaxis while also on meloxicam for pain control. Holding both medications at this time while n.p.o. Anemia - hg 12.->10.7. Normocytic. - continue to monitor, not symptomatic DVT ppx: holding chemoppx (including home baby ASA), defer to ortho. ordered SCDs FEN/GI: NPO. LR 150/hr Code Status: Full Code Dispo: med/surg (2) Sepsis: (3) HTN (hypertension): (4) GERD (gastroesophageal reflux disease): (5) BPH (benign prostatic hyperplasia): (6) LYNSEY (obstructive sleep apnea): Admission and Anticipated Discharge Date Admission Date: January 29, 2021 Supervising Physician Co-Signing Physician Notes I personally examined the patient and verified all garcia points of history and exam, discussed case, and agree with decision making with Dr Miranda feeling reasonably well just groggy post op vitals noted nad heent nc at mmm breathin gunlabored no accessory muscles good effort sepsis, septic shock now resolved - related to staph infection septic knee septic knee - vanco, post op. likely to need prolonged IV abx. await ID &S w staph Subjective Hx of bilat knee replacement (L knee 4-5 yrs ago, R knee 2 yrs ago). He had arthroscopy of R knee 2 wks ago for persistent swelling x 2 years. After the surgery, he had worsened swelling and effusion. 1 week ago, started draining and he started having intermittent fever. Appearance redder. Went to [place] ED 2 days ago. Had a dose of abx. PCP in [place]. Severe pain w/ weight bearing. Current pain is minimal when at rest. 10/10 w/ movement. Pain is described at R knee going down sanders. Social: former smoker, quit 30 years ago. Physical jobs such as railroad, [employer]. Review of Systems Review of Systems: All systems reviewed & are unremarkable except as noted in HPI & below Constitutional: + fevers, chills, diaphoresis Eyes: Denies blurry vision, vision changes Cardiovascular: Denies chest pain, palpitations Respiratory: Denies shortness of breath Gastrointestinal: Denies abdominal pain, nausea, constipation, diarrhea. V x3 after dilaudid yesterday Genitourinary: Denies urinary symptoms including dysuria Musculoskeletal: Denies weakness, muscle aches/pain, joint aches/pain Neurological: Denies headache, numbness, tingling, focal weakness Physical Exam Physical Exam: General: Grossly A&O. NAD. Cooperative. HEENT: Atraumatic, normocephalic. EOMI Pulm: CTAB anteriorly. -wheezes, -rales, -rhonchi. No respiratory distress. Cardiac: RRR, -mrg. 2+ BLE RLE only Abdominal: Nontender, nondistended, soft. Msk: Bandage removed for inspection. R knee has 1 incision at top with stitches that looks c/d/i. There are 2 incisions w/ stitches on bottom part of knee w/ yellow crusting. Right knee grossly w/ large effusion. Results & Data Results & Data ([facility]) Vital Signs (Past 12 Hours) Vital Signs febrile to 38.0 on admission. Had low BPs overnight down to 77/45. Recent BPs 110/64. 94 on room air. Temp Pulse Pulse Resp BP BP BP 01/30/21 06:03 37.6 C H 84 15 110/64 01/30/21 04:33 37.2 C 81 16 115/71 01/30/21 02:30 98/50 L 01/30/21 02:07 92/48 L 01/30/21 01:39 86/46 L 01/30/21 01:27 77/45 L 01/30/21 01:25 37.5 C 79 16 75/39 L 01/30/21 00:59 37.8 C H 86 17 93/57 L 01/30/21 00:23 38 C H 90 18 115/73 01/29/21 23:05 37.7 C H 93 H 20 135/74 01/29/21 22:35 69 16 156/72 H Pulse Ox 01/30/21 06:03 94 01/30/21 04:33 96 01/30/21 02:30 01/30/21 02:07 01/30/21 01:39 01/30/21 01:27 01/30/21 01:25 94 01/30/21 00:59 93 01/30/21 00:23 96 01/29/21 23:05 92 01/29/21 22:35 98 Laboratory Results wbc 17.97->11.71. neutrophil predom. esr 44. Hb 12.9->10.7. Na 133->138. K 3.2. Cr .92->.77. t bili 1.7. crp 24.7->22.9. blood and wound cultures pending 01/30/21 06:42 01/30/21 06:42 Diagnostic Findings venous doppler neg for DVT XR R knee FINDINGS: Right knee total joint arthroplasty and patella resurfacing. No evidence of hardware fracture or loosening. Large joint effusion with moderate circumferential soft tissue swelling of the distal femur and anterior knee. No acute fracture, dislocation or osseous erosion. Bony spurring of the lateral femoral condyle. IMPRESSION: 1. No acute fracture or dislocation. 2. Large joint effusion with moderate soft tissue swelling. Resident Activity Tracking Resident Involvement: Resident Care Provided Care Provided: Adult Hospital Medicine (1) Prosthetic joint infection Encounter type: initial encounter Qualified Code(s): T84.50XA - Infection and inflammatory reaction due to unspecified internal joint prosthesis, initial encounter
[2021-01-30 07:32] LABS: Eosinophils # (auto) 0.01 K/uL (0-0.5); Eosinophils % (auto) 0.1 %; Hemoglobin 10.7 g/dL (14.0-18.0); Immature Granulocytes # (auto) 0.02 K/uL (0.00-0.02); Immature Granulocytes % (auto) 0.2 %; Lymphocytes # (auto) 0.48 K/uL (1.2-3.4); Lymphocytes % (auto) 4.1 %; Mean Corpuscular Hemoglobin 30.7 pg (25-34); Mean Corpuscular Hgb Conc 33.4 g/dL (32-36); Monocytes # (auto) 0.85 K/uL (0.11-0.59); Monocytes % (auto) 7.3 %; Neutrophils # (auto) 10.35 K/uL (1.4-6.5); Neutrophils % (auto) 88.3 %; Platelet Count 186 K/uL (130-400); RDW Coefficient of Variation 14.2 % (11.5-14.5); RDW Standard Deviation 47.3 fL (36.4-46.3); Red Blood Count 3.48 M/uL (4.7-6.1); White Blood Count 11.71 K/uL (4.8-10.8)
[2021-01-30 07:56] LABS: BUN Creatinine Ratio 25.8 (10-20); Calcium 8.2 mg/dl (8.5-10.1); Creatinine Clr Calc Pharmacy 120.7 ml/min; Est GFR (African American) 110.4 ml/min; Est GFR (Non-African American) 95.2 ml/min; Potassium 3.2 mmol/L (3.5-5.1)
[2021-01-30] MEDS: ACETAMINOPHEN 1000 MG/100 ML IV IV PRN ×2 (08:01→20:27)
[2021-01-30 08:03] LABS: C Reactive Protein 22.9 mg/dl (0-0.29)
[2021-01-30] MEDS: POTASSIUM CHLORIDE / WTR 10 MEQ/100 ML PLCT IV SCH ×3 (08:04→10:04)
[2021-01-30] MEDS ORDERED: CEFEPIME 2,000 MG in SYRINGE 0 ML IV SCH (09:00)
--- NOTE | 2021-01-30 09:21 | Pharmacy Report ---
Pharmacy Abx Dose Short Note - Date of Service January 30, 2021 - Assessment & Plan Assessment 66 year old M receiving empiric vancomycin and cefepime for treatment of right prosthetic knee infection. BC and R knee culture pending. Patient referred to [facility] for orthopedic evaluation. He was previously seen at [facility]. Per their records, patient received the following antibiotics: * Vancomycin: 2000 mg 01/28 @2045, 1000 mg 01/29 @ 0516 * Cefepime: 2000 mg 01/28 @ 1850, 1000 mg 01/29 @ 0516 Plan Vancomycin * Patient received 2000 mg IV in the ED 01/29 @ 2157 * Start 1250 mg IV every 12 hours today at 1000. * Trough levels will be monitored and utilized to calculate AUC/COSMO, which is the preferred PK/PD target for vancomycin * AUC guided dosing is effective and associated with decreased risk of nephrotoxicity compared to traditional trough targets * Target AUC/COSMO of 400-600 mg/L.hr * Level ordered for: 01/31 @ 0930 Pharmacy will continue to follow and will adjust dose/frequency as necessary. Thank you.
[2021-01-30] MEDS: VANCOMYCIN HCL 1,250 MG in SODIUM CHLORIDE 0.9% 250 ML IV SCH ×2 (09:30→22:55)
[2021-01-30] MEDS ORDERED: ETHYL CHLORIDE AER SPR 100 ML CAN EXT ONE (10:30)
--- NOTE | 2021-01-30 10:36 | Orthopedic Consultation ---
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 I have discussed the case with Dr. Griffith. Patient with increased white count as well as increased sed rate and CRP. These could be altered secondary to his recent surgery however his is around 24 which I feel is more likely secondary to infection than his previous surgery. Patient clinically examines like a joint infection. Dr. Griffith would like me to do a joint aspiration at this time. I have discussed this with the patient and he states that he has had his joint aspirated several times in the past and is okay with the procedure. We discussed the possibilities of increased bleeding and/or risk of further infection. Patient is agreeable to aspiration. Plans will be to do the aspiration shortly. Continue IV antibiotics. I discussed with the patient tentatively that he would likely need to go to the operating room for irrigation debridement polyethylene bearing change. We have also discussed the possibility of complete explantation depending on bone quality and the possibility of the prosthesis being loose. Patient understands. He has been added onto the operating room schedule today for Dr. Griffith this afternoon for possible I&D and polyethylene bearing change. Addendum 11:27; Aspiration of right knee requested by Dr Griffith: With the patients permission, aspiration of right knee performed. A site at the superior lateral aspect of the knee was chosen. Site was marked and cleansed with 2 alcohol swabs and 3 betadine swabs. This was let to dry. Ethyl Chloride was then sprayed onto the site for skin anesthesia. An 18 gauge needle was inserted into the suprapatellar pouch. At total of 100ml of cloudy lambert/yellow fluid was aspirated from the knee. When no more fluid could be obtained, the needle was removed and 4x4 gauze was placed over the aspiration site and pressure was applied for approximately 30 seconds. A bandaid was then placed over the site. Pt tolerated well. Fluid sent for cell count, crystal analysis, and culture. History of Present Illness Reason for Consultation: Rule out right septic TKA Attending Physician: Oswaldo Montanez DO History of Present Illness Patient is a 66-year-old white male known to our practice who is status post right TKA approximately 2 years ago. Patient states that he had his left TKA is done as well and has had no problems with it however in the recent past the patient was having increased fluid collection in his right knee. It had been drained several times with apparently no signs of infection. The patient states that he had a knee arthroscopy by Dr. Griffith approximately 2 weeks ago. This was to help clean the knee out and hopefully rid him of his fluid collection. The patient states that he was doing well over the last couple of weeks however he noted he began having some increased fluids in the knee again and started draining out of his original incision. This slowed down to the point of stopping and then he began having some drainage out of his portal sites from his arthroscopy. He states that he was feeling fine through the past weekend however on Thursday, he was not feeling well. No obvious chills, rigors or fevers. He just felt poorly. He began having increased pain in the right knee and was having difficulty weightbearing as well as going through range of motion. This continued to worsen. He went to the [facility] ER and was seen there. Blood cultures were taken of which at this point per medicine service, found out that there is no growth to date. No aspiration was done of the knee at that time. He was referred to his primary care physician who later got the patient to come down to [place] to be seen in the emergency room here. He was admitted by the medical service and we have been asked to see him for his possible right TKA infection. Allergies Allergy/AdvReac Type Severity Reaction Status Date / Time dog dander Allergy Unknown CAT DOG Verified 01/29/21 20:50 DANDER-ITCHY EYES, STUFFY NOSE grass pollen-perennial rye, Allergy Unknown GRASS,TREES Verified 01/29/21 20:50 standar CONGESTION No Known Drug Allergies Allergy Unknown NONE Verified 01/29/21 20:50 pollen extracts Allergy Unknown ITCHY Verified 01/29/21 20:50 EYES, STUFFY NOSE Home Medications Medication Instructions Recorded Confirmed Type pantoprazole 40 mg tablet,delayed 40 mg PO QAM 11/22/18 01/29/21 History release tamsulosin 0.4 mg capsule 0.4 mg PO QAM 11/22/18 01/29/21 History gabapentin 300 mg capsule 300 mg PO QAM 01/29/21 01/29/21 History lisinopril 20 1 tab PO QAM 01/29/21 01/29/21 History mg-hydrochlorothiazide 25 mg tablet meloxicam 15 mg tablet 15 mg PO QAM 01/29/21 01/29/21 History potassium chloride 10 mEq 10 meq PO QAM 01/29/21 01/29/21 History capsule,extended release Patient History Medical History History of anxiety History of kidney stones Hypertension Osteoarthritis on PPI preventative while on NSAIDs Sleep apnea did not tolerate device; s/p UPPP Surgical History History of appendectomy History of arthroscopy of left knee History of arthroscopy of left shoulder History of arthroscopy of right knee History of arthroscopy of right shoulder History of back surgery X2 LOWER BACK History of brain surgery X2 - DERMOID CYSTS REMOVED History of colonoscopy History of neck surgery DISC OUT/HARDWARE IN History of toe surgery RIGHT BIG TOE History of tonsillectomy History of total left knee replacement (TKR) History of total replacement of left shoulder joint History of total replacement of right shoulder joint History of total right knee replacement History of urologic surgery KIDNEY STONES REMOVED History of uvulopalatopharyngoplasty LASERED OFF UVULA Family History Mother Family history of diabetes mellitus (DM) Social History Smoking Status: Former smoker Cigarettes Per Day: used to smoke 1-2 packs a day; quit 30yrs ago; Second Hand Exposure: No; Do You Dip or Chew Tobacco: No; Tobacco Cessation Education Requested by Patient: No Hx Alcohol Use: Yes Alcohol type: beer Hx Substance Use: No Preferred Language: Mohawk Communication Ability: Effective Speech Therapist Required: No Beliefs That Will Affect Care: None marital status: Current Living Situation: Family Other Information That Helps Us Care for You: No Feels Safe at Home: Yes Safety Concerns: Feels Safe At This Time Assistive Devices: None Physical Exam Physical Exam: On examination, the patient is a 66-year-old white male, well- developed, well-nourished, no acute distress, pleasant cooperative. On examination of his right knee, he has a very large knee effusion. Mild erythema over the lateral aspect of the knee. There are sutures remaining in the portal sites from his previous arthroscopy. He has a dressing over the lower portion of his original incision from the total knee arthroplasty and they are also covering the portal sites. He at this time is not having any overt drainage. Mild erythema around the portal sites. Palpation of the knee proves to be mildly tender over the superior aspect of the knee. No pain on palpation over the patella. Mild discomfort medial and lateral aspects. Any attempt to take him through gentle passive range of motion causes exquisite tenderness in the knee. Patient is unable to weight-bear on the right lower extremity secondary to knee pain. He does have mild swelling over the dorsum of his foot. Calves are soft and nontender. He has some mild soreness in his right Achilles tendon of which she states he has had. He has good range of motion of the right ankle and toes without discomfort. Left lower extremity is unaffected. He has a well-healed incision over the left knee from previous TKA. There is no effusion and range of motion is within normal limits of the left lower extremit y. Upper extremities are unaffected and he is nontender at the shoulders, elbows, and wrists. Range of motion within normal limits. Distal pulses are equal bilaterally of the upper and lower extremities. There is no gross motor or sensory loss seen at this time. Results & Data ([facility]) Vital Signs (Past 12 Hours) Vital Signs Temp Pulse Pulse Resp BP BP BP 01/30/21 10:00 36.9 C 73 16 111/71 01/30/21 09:29 37.1 C 69 18 109/65 01/30/21 08:56 36.9 C 76 107/67 01/30/21 08:30 37.2 C 79 115/72 01/30/21 07:59 37.7 C H 83 18 118/69 01/30/21 07:30 37.4 C 83 18 118/63 01/30/21 06:03 37.6 C H 84 15 110/64 01/30/21 04:33 37.2 C 81 16 115/71 01/30/21 02:30 98/50 L 01/30/21 02:07 92/48 L 01/30/21 01:39 86/46 L 01/30/21 01:27 77/45 L 01/30/21 01:25 37.5 C 79 16 75/39 L 01/30/21 00:59 37.8 C H 86 17 93/57 L 01/30/21 00:23 38 C H 90 18 115/73 01/29/21 23:05 37.7 C H 93 H 20 135/74 01/29/21 22:35 69 16 156/72 H Pulse Ox 01/30/21 10:00 95 01/30/21 09:29 97 01/30/21 08:56 94 01/30/21 08:30 96 01/30/21 07:59 97 01/30/21 07:30 95 01/30/21 06:03 94 01/30/21 04:33 96 01/30/21 02:30 01/30/21 02:07 01/30/21 01:39 01/30/21 01:27 01/30/21 01:25 94 01/30/21 00:59 93 01/30/21 00:23 96 01/29/21 23:05 92 01/29/21 22:35 98 Laboratory Results Laboratory Results WBC 11.71 K/uL (4.8-10.8) H 01/30/21 06:42 RBC 3.48 M/uL (4.7-6.1) L 01/30/21 06:42 Hgb 10.7 g/dL (14.0-18.0) L 01/30/21 06:42 Hct 32.0 % (42-52) L 01/30/21 06:42 MCV 92.0 fL (80-100) 01/30/21 06:42 MCH 30.7 pg (25-34) 01/30/21 06:42 MCHC 33.4 g/dL (32-36) 01/30/21 06:42 RDW Std Deviation 47.3 fL (36.4-46.3) H 01/30/21 06:42 RDW Coeff of Rachael 14.2 % (11.5-14.5) 01/30/21 06:42 Plt Count 186 K/uL (130-400) 01/30/21 06:42 MPV 10.0 fL (7.4-10.4) 01/30/21 06:42 Immature Gran % (Auto) 0.2 % 01/30/21 06:42 Neut % (Auto) 88.3 % 01/30/21 06:42 Lymph % (Auto) 4.1 % 01/30/21 06:42 [place] % (Auto) 7.3 % 01/30/21 06:42 Eos % (Auto) 0.1 % 01/30/21 06:42 Baso % (Auto) 0.0 % 01/30/21 06:42 Neut # (Auto) 10.35 K/uL (1.4-6.5) H 01/30/21 06:42 Lymph # (Auto) 0.48 K/uL (1.2-3.4) L 01/30/21 06:42 [place] # (Auto) 0.85 K/uL (0.11-0.59) H 01/30/21 06:42 Eos # (Auto) 0.01 K/uL (0-0.5) 01/30/21 06:42 Baso # (Auto) 0.00 K/uL (0-0.2) 01/30/21 06:42 Immature Gran # (Auto) 0.02 K/uL (0.00-0.02) 01/30/21 06:42 ESR 44 mm/hr (0-20) H 01/29/21 18:09 Sodium 138 mmol/L (136-145) 01/30/21 06:42 Potassium 3.2 mmol/L (3.5-5.1) L 01/30/21 06:42 Chloride 107 mmol/L (98-107) 01/30/21 06:42 Carbon Dioxide 23 mmol/L (21-32) 01/30/21 06:42 Anion Gap 8.0 (3-11) 01/30/21 06:42 BUN 20 mg/dl (7-18) H 01/30/21 06:42 Creatinine 0.77 mg/dl (0.6-1.4) 01/30/21 06:42 Est Cr Clr Drug Dosing 120.7 ml/min 01/30/21 06:42 Est GFR ( Amer) 110.4 ml/min 01/30/21 06:42 Est GFR (Non-Af Amer) 95.2 ml/min 01/30/21 06:42 BUN/Creatinine Ratio 25.8 (10-20) H 01/30/21 06:42 Glucose 104 mg/dl (70-99) H 01/30/21 06:42 Lactate 1.7 mmol/L (0.4-2.0) 01/29/21 18:09 Calcium 8.2 mg/dl (8.5-10.1) L 01/30/21 06:42 Total Bilirubin 1.7 mg/dl (0.2-1) H 01/29/21 18:09 AST 10 U/L (15-37) L 01/29/21 18:09 ALT 19 U/L (12-78) 01/29/21 18:09 Alkaline Phosphatase 60 U/L (45-117) 01/29/21 18:09 C-Reactive Protein 22.90 mg/dl (0-0.29) H 01/30/21 06:42 Total Protein 7.6 gm/dl (6.4-8.2) 01/29/21 18:09 Albumin 3.5 gm/dl (3.4-5.0) 01/29/21 18:09 Globulin 4.1 gm/dl (2.5-4.0) H 01/29/21 18:09 Albumin/Globulin Ratio 0.9 (0.9-2) 01/29/21 18:09 SARS-CoV-2, RNA, NAAT NEGATIVE (NEGATIVE) 01/29/21 21:12 Impressions Knee X-Ray 01/29/21 20:10 XR knee RT 1 or 2V routine HISTORY: 65 years-old Male infection acute pain and swelling of the right knee COMPARISON: 12/24/2018 TECHNIQUE: 3 views of the right knee FINDINGS: Right knee total joint arthroplasty and patella resurfacing. No evidence of h ardware fracture or loosening. Large joint effusion with moderate circumferential soft tissue swelling of the distal femur and anterior knee. No acute fracture, dislocation or osseous erosion. Bony spurring of the lateral femoral condyle. IMPRESSION: 1. No acute fracture or dislocation. 2. Large joint effusion with moderate soft tissue swelling. ACT 112: Negative or not required by law. The above report was generated using voice recognition software. It may contain grammatical, syntax or spelling errors. Electronically signed by: oJse Tanner M.D. 01/29/2021 8:31 PM Venous Doppler Study 01/29/21 22:02 US venous doppler LE BI CLINICAL HISTORY: Bl LE swelling, ecchymosis COMPARISON: None available at the time of this dictation. TECHNIQUE: Bilateral lower extremity real-time compression venous ultrasound with Color Doppler imaging. Utilizing real-time ultrasonic imaging multiple real time high-resolution ultrasonic images with compression and noncompression maneuvers of the deep venous system in addition to color doppler imaging were performed from the common femoral vein through the proximal calf veins. FINDINGS: Currently there is normal compressibility of the deep venous system from the common femoral vein through the proximal calf veins. No current evidence of acute thrombosis is identified. Impression: No evidence of deep venous thrombus. ACT 112: Negative or not required by law. Electronically signed by: Aiden Wheat M.D. 01/30/2021 6:28 AM (1) Prosthetic joint infection Encounter type: initial encounter Qualified Code(s): T84.50XA - Infection and inflammatory reaction due to unspecified internal joint prosthesis, initial encounter
[2021-01-30] MEDS: GENTAMICIN SULFATE 40 MG/ML 2 ML VIAL ONE ×4 (13:38→19:16)
[2021-01-30] MEDS: VANCOMYCIN HCL 1000MG/20ML VIAL ONE ×2 (13:38→17:11)
[2021-01-30 14:39] LABS: Appearance Synovial Fluid CLOUDY; Color Synovial Fluid YELLOW; Mononuclear WBC Synovial 1.8 %; Polynuclear WBC Synovial 98.2 %; RBC Synovial Fluid (A) 13000 /uL; Source Synovial Fluid KNEE; WBC Synovial Fluid (A) 53810 /ul (0-200)
[2021-01-30] MEDS ORDERED: HYDROmorphone INJ 1 MG/ML SYRINGE IV PRN (15:04)
[2021-01-30] MEDS ORDERED: MEPERIDINE HCL 25 MG/ML CARP/VIAL IV PRN (15:04)
[2021-01-30] MEDS ORDERED: LABETALOL HCL IV 5 MG/ML 20ML IV PRN (15:04)
[2021-01-30] MEDS ORDERED: ATROPINE SULFATE 0.1 MG/ML 10ML SYR IV PRN (15:04)
[2021-01-30] MEDS ORDERED: SCOPOLAMINE 1 MG TDSY TD ONE ×2 (15:04→15:05)
[2021-01-30] MEDS ORDERED: fentaNYL citrate 100 MCG/2 ML VIAL IV PRN (15:04)
[2021-01-30] MEDS ORDERED: ePHEDrine sulfate 50 MG/ML AMP IV PRN (15:04)
[2021-01-30] MEDS ORDERED: PHENYLEPHRINE 100MCG/ML 5ML SYR IV PRN (15:04)
[2021-01-30] MEDS ORDERED: ONDANSETRON INJ 2 MG/ML 2 ML VIAL IV PRN (15:04)
[2021-01-30] MEDS ORDERED: PROPOFOL IV EMULSION 10 MG/ML 20 ML VIAL IV ONE ×4 (15:05→17:41)
[2021-01-30] MEDS ORDERED: MIDAZOLAM HCL 1 MG/ML 2ML VIAL ONE ×3 (15:05→16:08)
[2021-01-30] MEDS ORDERED: LIDOCAINE 2% 2 ML VIAL/AMP(20MG/ML) INFIL ONE (15:05)
[2021-01-30] MEDS ORDERED: ONDANSETRON INJ 2 MG/ML 2 ML VIAL ONE (15:05)
[2021-01-30] MEDS ORDERED: fentaNYL citrate 100 MCG/2 ML VIAL ONE (15:06)
--- NOTE | 2021-01-30 15:23 | Anesthesiology Consultation ---
Date of Service January 30, 2021 Assessment & Plan Chart Review Chart Review: Acceptable Risk for Surgery and Patient NOT seen in Pre Admission Testing Consults Requested none ASA ASA2 Proposed Anesthesia Anesthesia Type: MAC Spinal Risk / Benefits Reviewed With: PT / POA / Parent / Guardian, Accepts Plan and Informed Consent Obtained History Surgery Operation Date: 01/30/21 13:50 Proposed Procedures p Incision and Drainage Right Septic TKA - Ed Griffith, Height/Weight Height: 6 ft 1 in Weight: 103.193 kg Allergies Allergy/AdvReac Type Severity Reaction Status Date / Time dog dander Allergy Unknown CAT DOG Verified 01/29/21 20:50 DANDER-ITCHY EYES, STUFFY NOSE grass pollen-perennial rye, Allergy Unknown GRASS,TREES Verified 01/29/21 20:50 standar CONGESTION No Known Drug Allergies Allergy Unknown NONE Verified 01/29/21 20:50 pollen extracts Allergy Unknown ITCHY Verified 01/29/21 20:50 EYES, STUFFY NOSE Medications Home Medications Medication Instructions Recorded Confirmed Last Taken pantoprazole 40 mg tablet,delayed 40 mg PO QAM 11/22/18 01/29/21 01/28/21 release tamsulosin 0.4 mg capsule 0.4 mg PO QAM 11/22/18 01/29/21 01/28/21 gabapentin 300 mg capsule 300 mg PO QAM 01/29/21 01/29/21 01/27/21 lisinopril 20 1 tab PO QAM 01/29/21 01/29/21 01/28/21 mg-hydrochlorothiazide 25 mg tablet meloxicam 15 mg tablet 15 mg PO QAM 01/29/21 01/29/21 01/28/21 potassium chloride 10 mEq 10 meq PO QAM 01/29/21 01/29/21 01/28/21 capsule,extended release Active Medications Generic Name Dose Route Start Last Admin Trade Name Freq PRN Reason Stop Dose Admin Acetaminophen 1,000 mg 01/30/21 07:02 01/30/21 08:01 Acetaminophen 1000 Mg/100 Ml Iv IV 02/01/21 23:33 1,000 mg Q8 PRN Administration Fever or pain Lactated Ringer's 1,000 mls @ 150 mls/hr 01/29/21 23:34 01/30/21 12:44 Lr IV 02/28/21 23:33 150 mls/hr .[id number] ITALIA Administration Vancomycin HCl 1,250 mg/ 275 mls @ 200 mls/hr 01/30/21 10:00 01/30/21 11:04 Sodium Chloride IV 03/13/21 09:59 Infused Q12H ITALIA Infusion Protocol NPO Date Last Intake of Fluids: 01/30/21 Time Last Intake of Fluids: 14:00 Last Intake of Fluids Comment: sip Date Last Intake of Solids: 01/29/21 Time Last Intake of Solids: 20:00 Past Medical History Medical History Anemia History of anxiety History of kidney stones Hypertension Osteoarthritis on PPI preventative while on NSAIDs Sleep apnea did not tolerate device; s/p UPPP Past Family History Family History Mother Family history of diabetes mellitus (DM) Past Surgical History Surgical History History of appendectomy History of arthroscopy of left knee History of arthroscopy of left shoulder History of arthroscopy of right knee History of arthroscopy of right shoulder History of back surgery X2 LOWER BACK History of brain surgery X2 - DERMOID CYSTS REMOVED History of colonoscopy History of neck surgery DISC OUT/HARDWARE IN History of toe surgery RIGHT BIG TOE History of tonsillectomy History of total left knee replacement (TKR) History of total replacement of left shoulder joint History of total replacement of right shoulder joint History of total right knee replacement History of urologic surgery KIDNEY STONES REMOVED History of uvulopalatopharyngoplasty LASERED OFF UVULA Social History Smoking Status: Former smoker tobacco type: cigarettes Smoking cigarettes per day: used to smoke 1-2 packs a day; quit 30yrs ago Do You Dip or Chew Tobacco: No Hx Alcohol Use: Yes Alcohol type: beer alcohol intake frequency: holidays/special occasions only Hx Substance Use: No substance use type: does not use Physical Exam Vital Signs Last Vital Signs Temp 37.4 C 01/30/21 14:53 Pulse 81 01/30/21 14:53 Resp 18 01/30/21 14:53 BP 126/76 01/30/21 14:53 Pulse Ox 98 01/30/21 14:53 Testing Laboratory Results 01/30/21 06:42 01/30/21 06:42 01/30/21 Unknown Gram Stain - Final Knee,Right 01/29/21 20:00 Gram Stain - Final Knee,Right Wound Culture - Preliminary Staphylococcus species 01/29/21 18:06 Gram Stain - Final Knee Wound Culture - Preliminary Staphylococcus species Electrocardiogram Date: 01/30/21 Findings: + NSR @ (07)
[2021-01-30] MEDS ORDERED: BUPIVACAINE 0.5 % 5 MG/1 ML PF 10ML VIAL ONE (15:28)
--- NOTE | 2021-01-30 15:42 | History & Physical Bridge Note ---
Date of Service January 30, 2021 History & Physical Bridge Note I have examined the patient, reviewed the History & Physical and in the interval since the performance of the History & Physical I have noted the following changes of clinical significance: no changes noted
[2021-01-30] MEDS ORDERED: CHECK SCOPOLAMINE PATCH PLACEMENT SCH (16:00)
[2021-01-30] MEDS ORDERED: PHENYLEPHRINE 100MCG/ML 5ML SYR ONE (16:20)
[2021-01-30] MEDS ORDERED: ePHEDrine sulfate 50 MG/ML SYR ONE (16:20)
--- NOTE | 2021-01-30 18:22 | Post Operative Brief Note ---
Immediate Post Op Note v1 Date of Surgery January 30, 2021 Pre & Post Diagnosis Operation Date: 01/30/21 13:50 Pre-Op Diagnosis: Right knee prosthetic joint infection Post-Op Diagnosis: Right knee Prosthetic joint infection I identified the patient and participated in the time-out.: Yes Procedure Operation Date: 01/30/21 13:50 Actual Procedures p Incision and Drainage Right Septic total knee arthroplasty with polyethylene exchange, implantation Stimulan and antibiotic beads - Ed Griffith DO Surgeon Ed Griffith DO Banquet Steward Andrew Pelayo PA-C Estimated Blood Loss 25 Findings Consistent with Post-Op Diagnosis Specimens Deep joint fluid right knee Deep joint fluid posterior right knee Septic synovium anterior knee Septic synovium femoral notch Drains Hemovac Drain (10fr dual round drain, right knee.) and Other (Joya wound drain) Complications none Disposition Accompanied Patient To Recovery: No
--- NOTE | 2021-01-30 18:35 | Anesthesiology Progress Note ---
Date of Service January 30, 2021 Anesthesia Post Procedure Vital Signs Vital Signs: Temp Pulse Pulse Pulse Resp BP BP 01/30/21 18:30 64 16 118/85 01/30/21 18:21 36.0 C L 66 16 122/82 01/30/21 14:53 37.4 C 81 18 126/76 01/30/21 14:02 37.5 C 79 16 01/30/21 12:56 36.8 C 85 16 112/71 01/30/21 10:59 36.9 C 72 16 114/72 01/30/21 10:00 36.9 C 73 16 111/71 01/30/21 09:29 37.1 C 69 18 109/65 01/30/21 08:56 36.9 C 76 107/67 01/30/21 08:30 37.2 C 79 115/72 01/30/21 07:59 37.7 C H 83 18 118/69 01/30/21 07:30 37.4 C 83 18 118/63 01/30/21 06:03 37.6 C H 84 15 110/64 01/30/21 04:33 37.2 C 81 16 115/71 01/30/21 02:30 98/50 L 01/30/21 02:07 92/48 L 01/30/21 01:39 86/46 L 01/30/21 01:27 01/30/21 01:25 37.5 C 79 16 01/30/21 00:59 37.8 C H 86 17 01/30/21 00:23 38 C H 90 18 01/29/21 23:05 37.7 C H 93 H 20 01/29/21 22:35 69 16 156/72 H BP Pulse Ox 01/30/21 18:30 98 01/30/21 18:21 98 01/30/21 14:53 98 01/30/21 14:02 102/64 96 01/30/21 12:56 96 01/30/21 10:59 96 01/30/21 10:00 95 01/30/21 09:29 97 01/30/21 08:56 94 01/30/21 08:30 96 01/30/21 07:59 97 01/30/21 07:30 95 01/30/21 06:03 94 01/30/21 04:33 96 01/30/21 02:30 01/30/21 02:07 01/30/21 01:39 01/30/21 01:27 77/45 L 01/30/21 01:25 75/39 L 94 01/30/21 00:59 93/57 L 93 01/30/21 00:23 115/73 96 01/29/21 23:05 135/74 92 01/29/21 22:35 98 Pain Intensity Right Knee: Pain Intensity: 1 Transfer of Care Handoff Completed per policy Notes Mental Status: alert / awake / arousable Patient Amnestic to Procedure: Yes Nausea / Vomiting: adequately controlled Pain: adequately controlled Airway Patency, RR, SpO2: stable & adequate BP & HR: stable & adequate Hydration State: stable & adequate Neuraxial Anesthesia: was administered and sensory block is resolving Anesthetic Complications: no major complications apparent and Pt Satisfied with anesthetic care Notes: The patient is awake and comfortable. His vital signs are stable.
--- NOTE | 2021-01-30 18:46 | Billing Data ---
Date of Service January 30, 2021 Coding Level of Care Code 68310 Subseq Hosp Care Lvl 3
[2021-01-30] MEDS ORDERED: diphenhydrAMINE 50 MG/ML VIAL IV PRN (20:15)
[2021-01-30] MEDS ORDERED: SODIUM CHLORIDE 0.9% 1000ML 1,000 ML IV SCH (20:15)
[2021-01-30] MEDS ORDERED: bisacodyL 10 MG SUPP PR PRN (20:15)
[2021-01-30] MEDS ORDERED: MAGNESIUM HYDROXIDE SUSP 30 ML UDC PO PRN (20:15)
[2021-01-30] MEDS ORDERED: NALOXONE HCL 0.4 MG/1 ML VIAL/CARP IV PRN (20:15)
--- NOTE | 2021-01-30 20:15 | XRay Report ---
XR knee RT 1 or 2V routine CLINICAL HISTORY: Surgical Post Op COMPARISON STUDY: Right knee 01/29/2021. FINDINGS: Skin teresita and surgical drains are in place. Multiple antibiotic joint space bodies have been placed in the interval. No fracture or dislocation. The right total knee arthroplasty. The hardw are appears intact. IMPRESSION: Postoperative changes within the right knee as described above. ACT 112: Negative or not required by law. Electronically signed by: Emil Scott M.D. 01/30/2021 8:13 PM
--- NOTE | 2021-01-30 20:46 | Operative Report (OR) ---
DATE OF PROCEDURE: 01/30/2021. PREOPERATIVE DIAGNOSIS: Right septic total knee arthroplasty. POSTOPERATIVE DIAGNOSIS: Right septic total knee arthroplasty. PROCEDURE: Incision and drainage, right septic total knee arthroplasty with polyethylene exchange, S mith and Nephew 9 mm posterior stabilized polyethylene, implantation of Stimulan antibiotic beads wit h gentamicin and vancomycin. SURGEON: Ed Griffith DO FLUTE TEACHER: Andrew Pelayo PA-C, who was present for patient positioning, sterile prep and ghassan pe, management of retractors and instruments. He was present through the critical portions of the gunnar e including wound closure, application of sterile dressing and transport of the patient to recovery. ANESTHESIA: Spinal with sedation. SPECIMENS: 1. Deep joint fluid, right knee. 2. Deep joint fluid, posterior knee. 3. Septic synovium, anterior knee. 4. Septic synovium, femoral notch. DRAINS: A 10-[place] Hemovac drains x2 and Prevena anterior wound vacuum. COMPLICATIONS: None. BLOOD LOSS: 25 mL. PERTINENT HISTORY: This is a 66-year-old gentleman who had previously undergone successful right tot al knee arthroplasty approximately 2 years prior. The patient had relatively good success with the k nee over his recovery course. However, with golfing, he had anterolateral knee occasional clicking a nd swelling. He eventually underwent a knee arthroscopy with debridement of arthrofibrosis and then a partial lateral release. The patient was doing well with no complaints with improvement in his sy mptoms and resolution of his anterolateral knee pain; however, this past Thursday, the patient started feeling poorly and then on Thursday, he felt worse to the point where he had severe swelling in the rig ht knee. Did not have fever or chills; however, then presented to [facility] ER where he was se en and arrangements were discussed for transfer. However, there was no receiving bed at [facility]. At that point, the patient received IV antibiotics at [facility] and was then eventually dis charged. As there was no availability at [facility], the patient was then seen at [facility] opedics clinic the next day by resident physician's finance assistant and through direct communication with eagle HAZEL, it was determined the patient would be best served with further inpatient management. The pat ient then presented to [facility] and was then admitted to the hospitalist service. He was then p laced on IV antibiotics. Aspiration was performed and noted to have gross grayish fluid, approximate ly 100 mL was drawn earlier today and the patient was then scheduled for surgery as indicated. All potential risks, benefits, complications, alternatives, rehab potential for incomplete relief sym ptoms, need for further surgery, DVT, PE, , persistent pain, swelling, scarring, weakness, neuro vascular injury, wound complications, hardware failure, nonunion, malunion, bone fracture were discus sed with the patient. The patient decided to proceed with the procedure as indicated. We also discu ssed polyethylene exchange versus complete explantation with placement of antibiotic spacers should t he need arise. The patient understood these risks and decided to proceed with the procedure as indic ated. DESCRIPTION OF PROCEDURE: The patient was taken to the operative suite, administered spinal anesthet ic. He was sedated and then tourniquet was applied high on the right thigh over cast padding. Right lower extremity was then sterilely prepped and draped in the usual fashion, elevated, and tourniquet inflated to 350 mmHg. There was no exsanguination performed due to the nature of the infection. Baron tures from previous arthroscopy were removed. Surgical timeout was performed, and then midline 10 bl jak scalpel incision was made and incision was then deepened through skin, subcutaneous tissue, and s car to the level of the extensor mechanism and the anterior patella. Next, a median parapatellar ful l-thickness incision was made with a fresh 10 blade scalpel, noting gross purulence, which was then c ultured. Deep fluid specimen from the right knee was then passed off as specimen followed by eversio n of the patella and then complete synovectomy with a 10 blade scalpel. This was taken back to the l evel of the retinaculum and the joint capsule. The polyethylene was then removed without difficulty. There was no marring or chipping of the polyethylene, it was in normal pristine condition. The lisandra nt surface of the femur was in pristine condition and the tibial tray was in pristine condition. A b one tamp and mallet was then used to test for mechanical loosening of the femur and tibial components with moderate tapping test for looseness. There was no looseness appreciated. Next, anterior synov ium was then sent for pathological assessment, frozen preparation with examination under high powered field. Next, specimen of synovium was obtained from the femoral notch for pathological analysis wit h frozen section testing under high powered field. Next, after complete synovectomy was performed, p ulsatile lavage was then used to cleanse the incision and the knee including the joint components. N ext, the Versajet was then used to debride the medial and lateral gutters, the implants, both the fem ur and the tibia, the patella, the entire capsular region including the posterior capsular region wit h placement of Hohmann retractors. The interval between the extensor retinaculum and patella and the undersurface of the tissue was then debrided with the Versajet. After all surfaces were completely cleaned, the top gloves and top sheet were changed and new instruments were employed as well as the l ight handles. Next, the 9 mm polyethylene was then reinserted for trial, noted to be stable in both flexion and extension, and there was no evidence of mid flexion instability. Patella tracks centrall y. Next, the final polyethylene was then placed, stable range of motion and function, no laxity. Th is was then followed by creation of Stimulan antibiotic beads, vancomycin and gentamicin 10 mL, and t hese beads were then placed deep medial and lateral and in the superficial medial and lateral gutters . A 10-[place] Hemovac single lumen drains x2 were placed exiting anterolaterally followed by full th ickness closure of the extensor with interrupted #1 Vicryl sutures. The dermis was closed using buri ed interrupted 2-0 Vicryl. The skin was closed using skin teresita. Next, a sterile compressive dres sing was applied, overwrapped with a double Nilesh wrap. Pathological assessment revealed 30-50 PMNs pe r high powered field indicating significant infection. Prevena drain had been applied to the superfi cial closure to provide negative pressure wound drainage. The Hemovac drains were placed to Hemovac suction. The patient was awakened and taken to recovery in stable condition after dropping the tourn bluebird biouet. Job ID: [id number]
--- NOTE | 2021-01-30 21:35 | Billing Data ---
Date of Service January 30, 2021 Coding Level of Care Code 18404 Initial Inpt Care Lvl 3
[2021-01-30] MEDS: ASPIRIN 81 MG ECTAB PO SCH (21:45)
[2021-01-30] MEDS: SENNA 8.6 MG TAB PO SCH (21:45)
[2021-01-30] MEDS: DOCUSATE SODIUM 100 MG CAP PO SCH (21:45)
[2021-01-31] MEDS: MoRPHine SULFATE 4 MG/ML 1 ML CARP\\VIAL IV PRN ×2 (00:06→03:35)
[2021-01-31] MEDS: oxyCODONE HCL IR 5 MG TAB (IMMEDIATE RELEASE) PO PRN ×3 (05:45→22:26)
[2021-01-31] MEDS ORDERED: POTASSIUM CHLORIDE CRTAB 20 MEQ TABCR PO STA (06:49)
--- NOTE | 2021-01-31 07:15 | Hospitalist Progress Note ---
Date of Service January 31, 2021 Assessment & Plan (1) Prosthetic joint infection: Plan: 65-year-old male with extensive orthopedic history admitted for worsening swelling of right prosthetic knee for possibly infected prosthetic joint. No overnight events. Maintaining good vitals. Afeb. 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 Gram stain w/ many polys. Waiting on sensitivities of deep wound culture; prelim staph aureus; will continue vanc for now - will need PICC line for outpatient abx, total of 6 wks Orthopedic team consulted, planned aspiration and I&D procedure performed on 01/30/21 PM Venous doppler BLE neg for DVT IV Tylenol for fever/pain, IV morphine ordered for as needed pain control. Gabapentin qpm. Sepsis secondary to prosthetic joint infection -Febrile to 38.0C tmax at admission CRP of 24.7, ESR 44 Elevated WBC to 17.97 with neutrophilic predominance Lactate reportedly elevated in outside ER, 1.7 on check in our ER transient hypotension overnight as above, responded to 500mL bolus x2 and maintenance fluids. Maintaining systolics >100s - transitioned to q4h vitals Antibiotics as above, trend daily CBC and CRP Hypokalemia, repleting -Repleting, follow BMP GERD On pantoprazole 40 mg p.o. every morning as prophylaxis while also on meloxicam for pain control. Holding both medications at this time while n.p.o. Anemia - hg 12.->10.7. Normocytic. - continue to monitor, not symptomatic DVT ppx: home baby ASA per ortho. ordered SCDs FEN/GI: Regular diet. IV fluids discontinued Code Status: Full Code Dispo: med/surg (2) Sepsis: (3) HTN (hypertension): (4) GERD (gastroesophageal reflux disease): (5) BPH (benign prostatic hyperplasia): (6) LYNSEY (obstructive sleep apnea): Admission and Anticipated Discharge Date Admission Date: January 29, 2021 Supervising Physician Co-Signing Physician Notes I personally examined the patient and verified all garcia points of history and exam, discussed case, and agree with decision making with Dr Miranda feeling reasonably well wound vac getting changed no significant acute complaints vitals noted nad heent nc at mmm breathing unlabored no accessory muscles good effort wound vac sponge on knee no surrounding erythema sepsis, septic shock now resolved - related to staph infection septic knee - fortunately improved septic knee - vanco, post op. likely to need prolonged IV abx. can probably downgrade to nafcillin or cephazolin but waiting on surgical cultures to be safe. will need prolonged IVs, probably would benefit from outpt ID input for duration/etc. otherwise as above Subjective Patient is POD1 s/p I&D of R knee. Part of hardware was replaced, plastic piece. Antimicrobial beads. Removed infected tissue. Tolerating regular diet, eating br eakfast currently. Feeling a lot better. No fever/chills/sweats. No cp/sob. Pain only when move, but much milder than before. Review of Systems Review of Systems: Constitutional: See HPI Eyes: Denies blurry vision, vision changes Cardiovascular: Denies chest pain, palpitations Respiratory: Denies shortness of breath Gastrointestinal: Denies abdominal pain, nausea, vomiting constipation, diarrhea. Genitourinary: Denies urinary symptoms including dysuria Musculoskeletal: Denies weakness Neurological: Denies headache, numbness, tingling, focal weakness Physical Exam Physical Exam: General: Grossly A&O. NAD. Cooperative. HEENT: Atraumatic, normocephalic. EOMI Pulm: CTAB. -wheezes, -rales, -rhonchi. Some diffuse decreased air movement on left, slightly tighter sounding. No respiratory distress. Cardiac: RRR, -mrg. no edema of LLE. Abdominal: Nontender, nondistended, soft. Msk: RLE wrapped from knee down. Has some active rom. Results & Data Results & Data ([facility]) Vital Signs (Past 12 Hours) Vital Signs BPs appropriate ~120/70s. 95%+ on room air. afeb Temp Pulse Pulse Resp BP Pulse Ox 01/31/21 03:34 36.8 C 83 18 117/67 96 01/30/21 23:40 36.9 C 84 20 120/71 95 01/30/21 22:45 37.5 C 80 18 124/70 96 01/30/21 20:56 37.4 C 92 H 18 117/74 98 01/30/21 19:57 36.4 C L 88 18 142/82 H 99 11/24/21 19:31 36.4 C L 80 20 139/70 97 Laboratory Results wbc 17.97->11.71->7.46. Hb stable from previous day. 10.6. Na 138->135. K 3.2- >3.1. Cr stable .78. synovial fluid w/ high wbc. other cultures pending/ unchanged. pansen s aureus. repeat xr knee, hardware intact Resident Activity Tracking Resident Involvement: Resident Care Provided Care Provided: Adult Hospital Medicine (1) Prosthetic joint infection Encounter type: initial encounter Qualified Code(s): T84.50XA - Infection and inflammatory reaction due to unspecified internal joint prosthesis, initial encounter
[2021-01-31] MEDS: PANTOprazole 40 MG TAB PO SCH (08:18)
[2021-01-31] MEDS: ASPIRIN 81 MG ECTAB PO SCH ×2 (08:18→21:31)
[2021-01-31] MEDS: DOCUSATE SODIUM 100 MG CAP PO SCH ×2 (08:18→21:32)
[2021-01-31] MEDS: MULTIVITAMIN TAB PO SCH (08:19)
[2021-01-31] MEDS: LISINOPRIL/HCTZ 20/25MG 1 TAB PO SCH (08:19)
[2021-01-31] MEDS: TAMSULOSIN HCL 0.4 MG CAP PO SCH (08:19)
[2021-01-31] MEDS ORDERED: Nursing to Pharmacy Communication SCH (08:30)
[2021-01-31] MEDS ORDERED: GABAPENTIN 300 MG CAP PO SCH (09:00)
--- NOTE | 2021-01-31 09:28 | Orthopedic Progress Note ---
Date of Service January 31, 2021 Assessment & Plan (1) Prosthetic joint infection: Plan: POD 1 s/p I/D with poly change Right Septic TKA PT/OT. WBAT. DVT prophylaxis - ASA bid, SCD's RHONDA's Pain management as written MSSA on wound swab of knee. Waiting on knee aspirate and intraop cx. Blood cx neg to date. Will need Picc line. DC planning - will need picc line for 6 weeks antibx. Follow cx for now. MSSA on wound swabs so far. Await knee aspirate and intraop cx's. Admission and Anticipated Discharge Date Admission Date: January 29, 2021 Subjective POD 1 Pt ambulating in room with nursing to the bathroom and back. States he has a little soreness this AM but otherwise is doing well. Denies SOB,CP,LH. Physical Exam Physical Exam: Dressings C/D/I. Calves soft, NT, NV intact. Ambulating freely in room. HV drainage 150ml from latest shift. Results & Data ([facility]) Vital Signs (Past 12 Hours) Vital Signs Temp Pulse Pulse Resp BP BP Pulse Ox 01/31/21 07:40 36.7 C 70 18 121/71 96 01/31/21 03:34 36.8 C 83 18 117/67 96 01/30/21 23:40 36.9 C 84 20 120/71 95 01/30/21 22:45 37.5 C 80 18 124/70 96 Laboratory Results Laboratory Results WBC 11.71 K/uL (4.8-10.8) H 01/30/21 06:42 RBC 3.48 M/uL (4.7-6.1) L 01/30/21 06:42 Hgb 10.7 g/dL (14.0-18.0) L 01/30/21 06:42 Hct 32.0 % (42-52) L 01/30/21 06:42 MCV 92.0 fL (80-100) 01/30/21 06:42 MCH 30.7 pg (25-34) 01/30/21 06:42 MCHC 33.4 g/dL (32-36) 01/30/21 06:42 RDW Std Deviation 47.3 fL (36.4-46.3) H 01/30/21 06:42 RDW Coeff of Rachael 14.2 % (11.5-14.5) 01/30/21 06:42 Plt Count 186 K/uL (130-400) 01/30/21 06:42 MPV 10.0 fL (7.4-10.4) 01/30/21 06:42 Immature Gran % (Auto) 0.2 % 01/30/21 06:42 Neut % (Auto) 88.3 % 01/30/21 06:42 Lymph % (Auto) 4.1 % 01/30/21 06:42 Faulkner % (Auto) 7.3 % 01/30/21 06:42 Eos % (Auto) 0.1 % 01/30/21 06:42 Baso % (Auto) 0.0 % 01/30/21 06:42 Neut # (Auto) 10.35 K/uL (1.4-6.5) H 01/30/21 06:42 Lymph # (Auto) 0.48 K/uL (1.2-3.4) L 01/30/21 06:42 Faulkner # (Auto) 0.85 K/uL (0.11-0.59) H 01/30/21 06:42 Eos # (Auto) 0.01 K/uL (0-0.5) 01/30/21 06:42 Baso # (Auto) 0.00 K/uL (0-0.2) 01/30/21 06:42 Immature Gran # (Auto) 0.02 K/uL (0.00-0.02) 01/30/21 06:42 ESR 44 mm/hr (0-20) H 01/29/21 18:09 Sodium 138 mmol/L (136-145) 01/30/21 06:42 Potassium 3.2 mmol/L (3.5-5.1) L 01/30/21 06:42 Chloride 107 mmol/L (98-107) 01/30/21 06:42 Carbon Dioxide 23 mmol/L (21-32) 01/30/21 06:42 Anion Gap 8.0 (3-11) 01/30/21 06:42 BUN 20 mg/dl (7-18) H 01/30/21 06:42 Creatinine 0.77 mg/dl (0.6-1.4) 01/30/21 06:42 Est Cr Clr Drug Dosing 120.7 ml/min 01/30/21 06:42 Est GFR ( Amer) 110.4 ml/min 01/30/21 06:42 Est GFR (Non-Af Amer) 95.2 ml/min 01/30/21 06:42 BUN/Creatinine Ratio 25.8 (10-20) H 01/30/21 06:42 Glucose 104 mg/dl (70-99) H 01/30/21 06:42 Lactate 1.7 mmol/L (0.4-2.0) 01/29/21 18:09 Calcium 8.2 mg/dl (8.5-10.1) L 01/30/21 06:42 Total Bilirubin 1.7 mg/dl (0.2-1) H 01/29/21 18:09 AST 10 U/L (15-37) L 01/29/21 18:09 ALT 19 U/L (12-78) 01/29/21 18:09 Alkaline Phosphatase 60 U/L (45-117) 01/29/21 18:09 C-Reactive Protein 22.90 mg/dl (0-0.29) H 01/30/21 06:42 Total Protein 7.6 gm/dl (6.4-8.2) 01/29/21 18:09 Albumin 3.5 gm/dl (3.4-5.0) 01/29/21 18:09 Globulin 4.1 gm/dl (2.5-4.0) H 01/29/21 18:09 Albumin/Globulin Ratio 0.9 (0.9-2) 01/29/21 18:09 Fluid Comment 01/30/21 Unknown Synovial Source KNEE 01/30/21 Unknown Synovial Color YELLOW 01/30/21 Unknown Synovial Appearance CLOUDY 01/30/21 Unknown Synovial WBC 27840 /ul (0-200) H 01/30/21 Unknown Synovial RBC 50710 /uL 01/30/21 Unknown Synovial Polynuclear % 98.2 % 01/30/21 Unknown Synovial Mononuclear % 1.8 % 01/30/21 Unknown Synovial Crystals 01/30/21 Unknown SARS-CoV-2, RNA, NAAT NEGATIVE (NEGATIVE) 01/29/21 21:12 Impressions Knee X-Ray 01/30/21 18:26 XR knee RT 1 or 2V routine CLINICAL HISTORY: Surgical Post Op COMPARISON STUDY: Right knee 01/29/2021. FINDINGS: Skin teresita and surgical drains are in place. Multiple antibiotic joint space bodies have been placed in the interval. No fracture or dislocation. The right total knee arthroplasty. The hardware appears intact. IMPRESSION: Postoperative changes within the right knee as described above. ACT 112: Negative or not required by law. Electronically signed by: Emil Scott M.D. 01/30/2021 8:13 PM (1) Prosthetic joint infection Encounter type: initial encounter Qualified Code(s): T84.50XA - Infection and inflammatory reaction due to unspecified internal joint prosthesis, initial encounter
[2021-01-31] MEDS ORDERED: VANCOMYCIN TROUGH ONE (09:30)
[2021-01-31 09:40] LABS: Eosinophils # (auto) 0.04 K/uL (0-0.5); Eosinophils % (auto) 0.5 %; Hematocrit (blood only) 31.5 % (42-52); Hemoglobin 10.6 g/dL (14.0-18.0); Immature Granulocytes # (auto) 0.02 K/uL (0.00-0.02); Immature Granulocytes % (auto) 0.3 %; Lymphocytes # (auto) 0.53 K/uL (1.2-3.4); Lymphocytes % (auto) 7.1 %; Mean Corpuscular Hemoglobin 30.7 pg (25-34); Mean Corpuscular Hgb Conc 33.7 g/dL (32-36); Mean Corpuscular Volume 91.3 fL (80-100); Mean Platelet Volume 9.6 fL (7.4-10.4); Monocytes # (auto) 0.56 K/uL (0.11-0.59); Monocytes % (auto) 7.5 %; Neutrophils # (auto) 6.31 K/uL (1.4-6.5); Neutrophils % (auto) 84.6 %; Platelet Count 186 K/uL (130-400); RDW Coefficient of Variation 13.7 % (11.5-14.5); RDW Standard Deviation 45.8 fL (36.4-46.3); Red Blood Count 3.45 M/uL (4.7-6.1); White Blood Count 7.46 K/uL (4.8-10.8)
[2021-01-31 10:00] LABS: BUN Creatinine Ratio 22.2 (10-20); Calcium 8.9 mg/dl (8.5-10.1); Creatinine Clr Calc Pharmacy 119.1 ml/min; Est GFR (African American) 109.8 ml/min; Est GFR (Non-African American) 94.7 ml/min; Potassium 3.1 mmol/L (3.5-5.1)
[2021-01-31] MEDS: VANCOMYCIN HCL 1,250 MG in SODIUM CHLORIDE 0.9% 250 ML IV SCH ×2 (10:36→18:17)
[2021-01-31] MEDS: ACETAMINOPHEN 1000 MG/100 ML IV IV PRN (11:03)
--- NOTE | 2021-01-31 15:21 | Pharmacy Report ---
Pharmacy Vanc AUC Short Note - Date of Service January 31, 2021 - Assessment & Plan Assessment 66 year old M receiving Vancomycin for treatment of right prosthetic knee infection. Day # 4 of antimicrobial therapy. Cultures thus far has resulted with MSSA only sensitive to Oxacillin. Checked with provider to see if we could deescalate. They are awaiting additional culture results. Will continue to follow and deescalate if possible. Patient had previously been on Vancomycin 1250mg IV q12h which resulted in the trough level below. Plan Laboratory Tests 01/31/21 09:32 Vancomycin Trough 6.5 Vancomycin * AUC/COSMO is the preferred PK/PD target for vancomycin * AUC guided dosing is effective and associated with decreased risk of nephrotoxicity compared to traditional trough targets * Trough level of 14.1 mcg/mL is predicted to achieve target AUC/COSMO of 400-600 mg/L.hr and may be associated with a 9 % risk of nephrotoxicity * Change to 1250 mg IV every 8 hours * Will order additional trough level as appropriate. Pharmacy will continue to follow and will adjust dose/frequency as necessary. Thank you.
--- NOTE | 2021-01-31 17:36 | Billing Data ---
Date of Service January 31, 2021 Coding Level of Care Code 62437 Subseq Hosp Care Lvl 3
[2021-01-31] MEDS: POTASSIUM CHLORIDE / WTR 10 MEQ/100 ML PLCT IV SCH ×2 (18:47→19:52)
[2021-01-31] MEDS ORDERED: POTASSIUM CHLORIDE PWD 20 MEQ PACK PO ONE (21:00)
[2021-01-31] MEDS: GABAPENTIN 300 MG CAP PO SCH (21:31)
[2021-01-31] MEDS: SENNA 8.6 MG TAB PO SCH (21:32)
[2021-01-31] MEDS ORDERED: POTASSIUM CHLORIDE / WTR 10 MEQ/100 ML PLCT IV SCH (22:00)
[2021-02-01] MEDS: VANCOMYCIN HCL 1,250 MG in SODIUM CHLORIDE 0.9% 250 ML IV SCH ×2 (01:55→10:32)
[2021-02-01 05:43] LABS: Basophils # (auto) 0.02 K/uL (0-0.2); Basophils % (auto) 0.3 %; Eosinophils # (auto) 0.05 K/uL (0-0.5); Eosinophils % (auto) 0.8 %; Hematocrit (blood only) 30.7 % (42-52); Hemoglobin 10.3 g/dL (14.0-18.0); Immature Granulocytes # (auto) 0.01 K/uL (0.00-0.02); Immature Granulocytes % (auto) 0.2 %; Lymphocytes % (auto) 12.9 %; Mean Corpuscular Hemoglobin 30.5 pg (25-34); Mean Corpuscular Hgb Conc 33.6 g/dL (32-36); Mean Corpuscular Volume 90.8 fL (80-100); Mean Platelet Volume 9.5 fL (7.4-10.4); Monocytes # (auto) 0.74 K/uL (0.11-0.59); Monocytes % (auto) 11.9 %; Neutrophils # (auto) 4.58 K/uL (1.4-6.5); Neutrophils % (auto) 73.9 %; Platelet Count 219 K/uL (130-400); RDW Coefficient of Variation 13.4 % (11.5-14.5); RDW Standard Deviation 44.7 fL (36.4-46.3); Red Blood Count 3.38 M/uL (4.7-6.1)
[2021-02-01 06:13] LABS: Calcium 9.2 mg/dl (8.5-10.1); Creatinine Clr Calc Pharmacy 116.2 ml/min; Est GFR (African American) 108.7 ml/min; Est GFR (Non-African American) 93.7 ml/min; Magnesium 1.8 mg/dl (1.8-2.4); Potassium 3.2 mmol/L (3.5-5.1)
[2021-02-01 06:23] LABS: C Reactive Protein 21.4 mg/dl (0-0.29)
--- NOTE | 2021-02-01 06:57 | Hospitalist Progress Note ---
Date of Service February 01, 2021 Assessment & Plan (1) Prosthetic joint infection: Plan: 65-year-old male with extensive orthopedic history admitted for worsening swelling of right prosthetic knee for possibly infected prosthetic joint. 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 Gram stain w/ many polys. Deep wound cultures w/ prelim pansensitive staph aureus. 02/01 transitioned to IV Cefazolin q8h. - will need PICC line for outpatient abx, total of 6 wks. This will be minimum duration given septic artificial joint w/ retained hardware. Outpatient ID consult will help guide duration. PICC line placed 02/01/21 Orthopedic team consulted, planned aspiration and I&D procedure performed on 01/30/21 PM Venous doppler BLE neg for DVT IV Tylenol for fever/pain, IV morphine ordered for as needed pain control. Gabapentin qpm. Sepsis secondary to prosthetic joint infection -Febrile to 38.0C tmax at admission. Afebrile >48hrs CRP of 24.7, ESR 44 Elevated WBC to 17.97 with neutrophilic predominance, downtrending Lactate reportedly elevated in outside ER, 1.7 on check in our ER transient hypotension during initial night responded to 500mL bolus x2 and maintenance fluids. Hypotension has resolved and patient remains stable. - transitioned to q4h vitals Antibiotics as above, trend daily CBC and CRP Hypokalemia Persistent despite repletion. Checking urine lytes. Follow BMP GERD On pantoprazole 40 mg p.o. every morning as prophylaxis while also on meloxicam for pain control. Holding both medications at this time while n.p.o. Anemia - hg 12.->10.7. Normocytic. - continue to monitor, not symptomatic DVT ppx: home baby ASA per ortho. ordered SCDs FEN/GI: Regular diet. IV fluids discontinued Code Status: Full Code Dispo: med/surg (2) Sepsis: (3) HTN (hypertension): (4) GERD (gastroesophageal reflux disease): (5) BPH (benign prostatic hyperplasia): (6) LYNSEY (obstructive sleep apnea): Admission and Anticipated Discharge Date Admission Date: January 29, 2021 Supervising Physician Co-Signing Physician Notes I personally examined the patient and verified all garcia points of history and exam, discussed case, and agree with decision making with Dr Miranda feeling reasonably well wound vac getting changed no significant acute complaints vitals noted nad heent nc at mmm breathing unlabored no accessory muscles good effort wound vac sponge on knee no surrounding erythema sepsis, septic shock now resolved - related to staph infection septic knee - fortunately improved, continue antibiotics septic knee -MSSAsafe to narrow from vancomycin to cefazolin. Given the complexity of the situation (MSSA knee infection and a prosthetic joint) suspect will need a fairly long duration of antibioticsfor now would presume a 6-week course might be sufficient, but would appreciate infectious disease input particularly for determining the optimal duration, as well as whether or not any chronic suppressive therapy may be necessary long-term. Given the lack of timely services in-house, and given the fact that it would not have much of any impact on immediate management, this can be set up as an outpatient, as long as the consultation takes place while he is still on the initial course of IV antibiotics. otherwise as above Subjective Doing well. no pain/numbness/tingling. No smith, f/c, cp sob, abd pain, n/v, urinary sxs. Tolerating regular diet. Review of Systems Review of Systems: See HPI Physical Exam Physical Exam: General: Grossly A&O. NAD. Cooperative. HEENT: Atraumatic, normocephalic. EOMI Pulm: CTAB anteriorly No respiratory distress. Cardiac: RRR, -mrg. no edema of LLE. 3+ BLE on right Abdominal: Nontender, nondistended, soft. Msk: RLE wrapped from knee down. Has some active rom. Has wound vac and soft knee brace. Results & Data Results & Data ([facility]) Vital Signs (Past 12 Hours) Vital Signs vitals stable. No fevers overnight Temp Pulse Resp BP Pulse Ox 01/31/21 22:38 37.1 C 76 18 116/75 94 Laboratory Results no ecg this admission. K 3.2. Na 138->135->134. crp 21.4. esr pending. jennifer eugene s aureus of deep culture prelim Resident Activity Tracking Resident Involvement: Resident Care Provided Care Provided: Adult Hospital Medicine (1) Prosthetic joint infection Encounter type: initial encounter Qualified Code(s): T84.50XA - Infection and inflammatory reaction due to unspecified internal joint prosthesis, initial encounter
[2021-02-01] MEDS: DOCUSATE SODIUM 100 MG CAP PO SCH ×2 (08:48→20:13)
[2021-02-01] MEDS: MULTIVITAMIN TAB PO SCH (08:48)
[2021-02-01] MEDS: LISINOPRIL/HCTZ 20/25MG 1 TAB PO SCH (08:48)
[2021-02-01] MEDS: TAMSULOSIN HCL 0.4 MG CAP PO SCH (08:48)
[2021-02-01] MEDS: PANTOprazole 40 MG TAB PO SCH (08:48)
[2021-02-01] MEDS: ASPIRIN 81 MG ECTAB PO SCH ×2 (08:48→20:18)
[2021-02-01] MEDS: oxyCODONE HCL IR 5 MG TAB (IMMEDIATE RELEASE) PO PRN (09:33)
[2021-02-01] MEDS: ceFAZolin 2000MG 2,000 MG/15 ML SYR IV SCH ×2 (14:05→20:18)
--- NOTE | 2021-02-01 14:47 | Orthopedic Progress Note ---
Date of Service February 01, 2021 Assessment & Plan (1) Prosthetic joint infection: Plan: POD 2 s/p I/D with poly change Right Septic TKA PT/OT. WBAT. DVT prophylaxis - ASA bid, SCD's RHONDA's Pain management as written MSSA on Intra-Op cultures. Medicine service has switched patient from vancomycin to cefazolin 2 g IV every [address] Griffith to make final decision on antibiotic choice prior to discharge. PICC line ordered. DC planning - will need picc line for 6 weeks antibx. Follow cx for now. MSSA Admission and Anticipated Discharge Date Admission Date: January 29, 2021 Subjective Postop day 2 Patient lying in bed earlier this morning. No complaints. Pain controlled. Discussed the fact of waiting on cultures for finals and sensitivities of which recently have come up as staph aureus MSSA. Discussed removal of his drain later today. Planning for outpatient antibiotics. Discussed placement of PICC line. Consent was signed and put on the chart requested by Dr. Griffith Physical Exam Physical Exam: The original dressing had been taken down and the Prevena wound VAC has been worked on to maintain suction. This was done successfully by nursing staff. New [place]h wrap placed around the Prevena wound dressing. Calves are soft nontender. Neuro vas intact. Toes are mobile. Results & Data ([facility]) Vital Signs (Past 12 Hours) Vital Signs Temp Pulse Resp BP Pulse Ox 02/01/21 07:22 37 C 83 16 117/76 95 Laboratory Results Laboratory Results WBC 6.20 K/uL (4.8-10.8) 02/01/21 05:22 RBC 3.38 M/uL (4.7-6.1) L 02/01/21 05:22 Hgb 10.3 g/dL (14.0-18.0) L 02/01/21 05:22 Hct 30.7 % (42-52) L 02/01/21 05:22 MCV 90.8 fL (80-100) 02/01/21 05:22 MCH 30.5 pg (25-34) 02/01/21 05:22 MCHC 33.6 g/dL (32-36) 02/01/21 05:22 RDW Std Deviation 44.7 fL (36.4-46.3) 02/01/21 05:22 RDW Coeff of Rachael 13.4 % (11.5-14.5) 02/01/21 05:22 Plt Count 219 K/uL (130-400) 02/01/21 05:22 MPV 9.5 fL (7.4-10.4) 02/01/21 05:22 Immature Gran % (Auto) 0.2 % 02/01/21 05:22 Neut % (Auto) 73.9 % 02/01/21 05:22 Lymph % (Auto) 12.9 % 02/01/21 05:22 [place] % (Auto) 11.9 % 02/01/21 05:22 Eos % (Auto) 0.8 % 02/01/21 05:22 Baso % (Auto) 0.3 % 02/01/21 05:22 Neut # (Auto) 4.58 K/uL (1.4-6.5) 02/01/21 05:22 Lymph # (Auto) 0.80 K/uL (1.2-3.4) L 02/01/21 05:22 [place] # (Auto) 0.74 K/uL (0.11-0.59) H 02/01/21 05:22 Eos # (Auto) 0.05 K/uL (0-0.5) 02/01/21 05:22 Baso # (Auto) 0.02 K/uL (0-0.2) 02/01/21 05:22 Immature Gran # (Auto) 0.01 K/uL (0.00-0.02) 02/01/21 05:22 ESR 64 mm/hr (0-20) H 02/01/21 05:22 Sodium 134 mmol/L (136-145) L 02/01/21 05:22 Potassium 3.2 mmol/L (3.5-5.1) L 02/01/21 05:22 Chloride 101 mmol/L (98-107) 02/01/21 05:22 Carbon Dioxide 27 mmol/L (21-32) 02/01/21 05:22 Anion Gap 6.0 (3-11) 02/01/21 05:22 BUN 15 mg/dl (7-18) 02/01/21 05:22 Creatinine 0.80 mg/dl (0.6-1.4) 02/01/21 05:22 Est Cr Clr Drug Dosing 116.2 ml/min 02/01/21 05:22 Est GFR ( Amer) 108.7 ml/min 02/01/21 05:22 Est GFR (Non-Af Amer) 93.7 ml/min 02/01/21 05:22 BUN/Creatinine Ratio 19.0 (10-20) 02/01/21 05:22 Glucose 96 mg/dl (70-99) 02/01/21 05:22 Lactate 1.7 mmol/L (0.4-2.0) 01/29/21 18:09 Calcium 9.2 mg/dl (8.5-10.1) 02/01/21 05:22 Magnesium 1.8 mg/dl (1.8-2.4) 02/01/21 05:22 Total Bilirubin 1.7 mg/dl (0.2-1) H 01/29/21 18:09 AST 10 U/L (15-37) L 01/29/21 18:09 ALT 19 U/L (12-78) 01/29/21 18:09 Alkaline Phosphatase 60 U/L (45-117) 01/29/21 18:09 C-Reactive Protein 21.40 mg/dl (0-0.29) H 02/01/21 05:22 Total Protein 7.6 gm/dl (6.4-8.2) 01/29/21 18:09 Albumin 3.5 gm/dl (3.4-5.0) 01/29/21 18:09 Globulin 4.1 gm/dl (2.5-4.0) H 01/29/21 18:09 Albumin/Globulin Ratio 0.9 (0.9-2) 01/29/21 18:09 Fluid Comment 01/30/21 Unknown Synovial Source KNEE 01/30/21 Unknown Synovial Color YELLOW 01/30/21 Unknown Synovial Appearance CLOUDY 01/30/21 Unknown Synovial WBC 07729 /ul (0-200) H 01/30/21 Unknown Synovial RBC 79772 /uL 01/30/21 Unknown Synovial Polynuclear % 98.2 % 01/30/21 Unknown Synovial Mononuclear % 1.8 % 01/30/21 Unknown Synovial Crystals 01/30/21 Unknown Vancomycin Trough 6.5 mcg/ml (See Comment) 01/31/21 09:32 SARS-CoV-2, RNA, NAAT NEGATIVE (NEGATIVE) 01/29/21 21:12 (1) Prosthetic joint infection Encounter type: initial encounter Qualified Code(s): T84.50XA - Infection and inflammatory reaction due to unspecified internal joint prosthesis, initial encounter
--- NOTE | 2021-02-01 18:36 | Billing Data ---
Date of Service February 01, 2021 Coding Level of Care Code 33293 Subseq Hosp Care Lvl 3
[2021-02-01] MEDS ORDERED: POTASSIUM CHLORIDE 20 MEQ/15 ML UDC PO STA (18:39)
[2021-02-01] MEDS: GABAPENTIN 300 MG CAP PO SCH (20:13)
[2021-02-01] MEDS: SENNA 8.6 MG TAB PO SCH (20:18)
[2021-02-01 21:18] LABS: Creatinine Urine Random 49.4 mg/dl; Potassium Random Urine 13.9 mmol/L
[2021-02-02] MEDS: oxyCODONE HCL IR 5 MG TAB (IMMEDIATE RELEASE) PO PRN ×4 (01:30→14:16)
[2021-02-02] MEDS: ceFAZolin 2000MG 2,000 MG/15 ML SYR IV SCH (05:31)
[2021-02-02 06:39] LABS: Creatinine Clr Calc Pharmacy 109.3 ml/min; Est GFR (Non-African American) 91.4 ml/min
[2021-02-02 06:49] LABS: Thyroid Stimulating Hormone 1.39 uIu/ml (0.300-4.500)
--- NOTE | 2021-02-02 07:52 | Discharge Summary ---
Date of Service February 02, 2021 Admission HPI Per Admitting Provider Patient is a 65-year-old male with a past medical history of hypertension, GERD, BPH, LYNSEY with history of bilateral knee replacements in the ER today for worsening swelling of right knee. He had been having worsening swelling and pain in the right prosthetic knee and approximately 2 weeks ago had a arthroscopic intervention to try and improve the swelling and pain. He states that approximately 3-4 days ago he noticed that his right knee was swollen more than usual and was actively seeping into his jeans. He went to his local emergency department to be evaluated whereupon they performed a joint injection took a sample of the fluid and sent him home. He was able to walk and maneuver on his leg for most of the weekend without much issue. Yesterday he started to feel somewhat ill with chills and sweats. Earlier today he noticed that his knee had swollen up and was seeping again now out of the new incision line from his arthroscopy 2 weeks ago and was once again soaking his jeans and his leg. He states that it was difficult to identify the fluid given that it was soaked into clothing however he would describe it as yellowish and cloudy. He also at this time noted that he had some reddish-black bruising at the base of his right foot which he had not seen before. He was evaluated at the other emergency department again today where they started a work-up for a septic prosthetic joint and discussed the case with his orthopedic surgeon. He was directed to our emergency department/hospital at the request of the orthopedic surgeon for intervention. Patient does note that on his way from the outside ER to our hospital he had multiple bouts of nausea and emesis. He states that these were nonbloody nonbilious and without coffee-ground emesis. He states that at the outside ER he did have a fever and was experiencing the sweats again but is not sure how high his fever got. Review of outside ER note in the chart shows that he had an elevated lactate level, mild tachycardia, soft blood pressures that improved with fluid resuscitation. He received Dilaudid and cefepime the outside ER prior to being sent here. The patient states that he had ultrasounds of his legs performed at the outside ER however there is no mention of these in the paperwork sent over thus we will repeat them. He has been on a an 81 mg baby aspirin daily after having his arthroscopy 2 weeks ago. Admission Exam Per Admitting Provider Patient is a 65-year-old male with a past medical history of hypertension, GERD, BPH, LYNSEY with history of bilateral knee replacements in the ER today for worsening swelling of right knee. He had been having worsening swelling and pain in the right prosthetic knee and approximately 2 weeks ago had a arthroscopic intervention to try and improve the swelling and pain. He states that approximately 3-4 days ago he noticed that his right knee was swollen more than usual and was actively seeping into his jeans. He went to his local emergency department to be evaluated whereupon they performed a joint injection took a sample of the fluid and sent him home. He was able to walk and maneuver on his leg for most of the weekend without much issue. Yesterday he started to feel somewhat ill with chills and sweats. Earlier today he noticed that his knee had swollen up and was seeping again now out of the new incision line from his arthroscopy 2 weeks ago and was once again soaking his jeans and his leg. He states that it was difficult to identify the fluid given that it was soaked into clothing however he would describe it as yellowish and cloudy. He also at this time noted that he had some reddish-black bruising at the base of his right foot which he had not seen before. He was evaluated at the other emergency department again today where they started a work-up for a septic prosthetic joint and discussed the case with his orthopedic surgeon. He was directed to our emergency department/hospital at the request of the orthopedic surgeon for intervention. Patient does note that on his way from the outside ER to our hospital he had multiple bouts of nausea and emesis. He states that these were nonbloody nonbilious and without coffee-ground emesis. He states that at the outside ER he did have a fever and was experiencing the sweats again but is not sure how high his fever got. Review of outside ER note in the chart shows that he had an elevated lactate level, mild tachycardia, soft blood pressures that improved with fluid resuscitation. He received Dilaudid and cefepime the outside ER prior to being sent here. The patient states that he had ultrasounds of his legs performed at the outside ER however there is no mention of these in the paperwork sent over thus we will repeat them. He has been on a an 81 mg baby aspirin daily after having his arthroscopy 2 weeks ago. Principal Diagnosis septic right prosthetic knee Discharge Exam No new complaints. Chronic L shoulder pain. Tired of being in hospital and looking forward to going home. No knee pain at rest. R knee pain w/ weight bearing/bending. Last BM 5 days ago, but attributes to minimal PO intake periope ratively. Has been eating more of regular diet past 2 days. No CP/SOB/F/C/N/V. 98/61, 99/64. afeb. 96 on RA General: Grossly A&O. NAD. Cooperative. HEENT: Atraumatic, normocephalic. EOMI Pulm: CTAB. No rales, rhonchi, or wheezes. No respiratory distress. Cardiac: RRR, -mrg. no edema of LLE. 3+ BLE on right Abdominal: Nontender, nondistended, soft. Msk: R knee has wound vac and clean dressing w/ clear plastic wrap. + edema grossly, but no erythema. Has some active rom. labs: no leukocytosis. wbc 6.66. Hb stable 11.3.. TSH 1.39 wnl. BMP, Mg pending. 01/30 deep wound culture w/ few pansensitive s aureus. no anaerobes. + low counts of probable skin li Discharge Data Allergies Allergy/AdvReac Type Severity Reaction Status Date / Time dog dander Allergy Unknown CAT DOG Verified 01/29/21 20:50 DANDER-ITCHY EYES, STUFFY NOSE grass pollen-perennial rye, Allergy Unknown GRASS,TREES Verified 01/29/21 20:50 standar CONGESTION No Known Drug Allergies Allergy Unknown NONE Verified 01/29/21 20:50 pollen extracts Allergy Unknown ITCHY Verified 01/29/21 20:50 EYES, STUFFY NOSE Consultations 01/29/21 20:57 Consult Orthopedic Surgery Routine 01/29/21 21:26 ED Decision to Admit Stat Procedures Performed Operation Date: 01/30/21 13:50 Actual Procedures s Incision and Drainage Right Septic Total Knee Arthroplasty with(Right) - Ed Griffith DO p Poly Exchange(Right) - Ed Griffith DO Ordered Studies 02/02/21 11:34 02/02/21 11:34 Knee X-Ray 01/29/21 20:10 XR knee RT 1 or 2V routine HISTORY: 65 years-old Male infection acute pain and swelling of the right knee COMPARISON: 12/24/2018 TECHNIQUE: 3 views of the right knee FINDINGS: Right knee total joint arthroplasty and patella resurfacing. No evidence of hardware fracture or loosening. Large joint effusion with moderate circumferential soft tissue swelling of the distal femur and anterior knee. No acute fracture, dislocation or osseous erosion. Bony spurring of the lateral femoral condyle. IMPRESSION: 1. No acute fracture or dislocation. 2. Large joint effusion with moderate soft tissue swelling. ACT 112: Negative or not required by law. The above report was generated using voice recognition software. It may contain grammatical, syntax or spelling errors. Electronically signed by: Jose Tanner M.D. 01/29/2021 8:31 PM Venous Doppler Study 01/29/21 22:02 US venous doppler LE BI CLINICAL HISTORY: Bl LE swelling, ecchymosis COMPARISON: None available at the time of this dictation. TECHNIQUE: Bilateral lower extremity real-time compression venous ultrasound with Color Doppler imaging. Utilizing real-time ultrasonic imaging multiple real time high-resolution ultrasonic images with compression and noncompression maneuvers of the deep venous system in addition to color doppler imaging were performed from the comm on femoral vein through the proximal calf veins. FINDINGS: Currently there is normal compressibility of the deep venous system from the common femoral vein through the proximal calf veins. No current evidence of acute thrombosis is identified. Impression: No evidence of deep venous thrombus. ACT 112: Negative or not required by law. Electronically signed by: Aiden Wheat M.D. 01/30/2021 6:28 AM Knee X-Ray 01/30/21 18:26 XR knee RT 1 or 2V routine CLINICAL HISTORY: Surgical Post Op COMPARISON STUDY: Right knee 01/29/2021. FINDINGS: Skin teresita and surgical drains are in place. Multiple antibiotic joint space bodies have been placed in the interval. No fracture or dislocation. The right total knee arthroplasty. The hardware appears intact. IMPRESSION: Postoperative changes within the right knee as described above. ACT 112: Negative or not required by law. Electronically signed by: Emil Scott M.D. 01/30/2021 8:13 PM Hospital Course (1) Prosthetic joint infection: 65-year-old male with extensive orthopedic history admitted for worsening swelling of right prosthetic knee for possibly infected prosthetic joint. Needs PCP and orthopedics f/u. Follow CMP and CBC weekly while on antibiotics. 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 Gram stain w/ many polys. Deep wound cultures w/ prelim pansensitive staph aureus. 02/01 transitioned to 2g IV Cefazolin q8h. Discharging home on 2g IV Cefazolin q8h plus 450 mg PO Rifampin BID. - PICC line placed 02/01/21 for outpatient abx, total of 6 wks, tentatively. This will be minimum duration given septic artificial joint w/ retained hardware. Outpatient ID referral placed (Brad) -Wound vac to be removed by home health in approx 5-7 days -Discharging on Ancef 2g IV q8h and PO rifampin 450mg PO BID x 6 wks w/ likely transition to oral abx for total of 6 months therapy or longer. Deferring to infectious disease and ortho for determination. 01/30 deep wound culture prelim few staph aureus. rodriguez sensitive. no anerobes. + low counts of probable skin li. gram stain w/ many polys and rare gram pos cocci. 01/30 posteior capsule R knee w/ rare staph aureus. 01/30 deep fluid aspirate w/ same. 01/29 BC no growth prelim 48 hours, There has not been growth reported at 4 day flavia. 01/29 surface wound culture w/ few staph aureus prelim pansensitive. gram stain w/ few wbcs. Sepsis secondary to prosthetic joint, infection, resolved -At admission, Febrile to 38.0C tmax at admission. Afebrile >72hrs Admission labs: CRP of 24.7, ESR 44. Elevated WBC to 17.97 with neutrophilic predominance, downtrending. Transient hypotension first night, resolved after fluids and has not reoccured. Hypokalemia Persistent 3.1-3.2 despite repletion. urine K 13.9. urine Cr 49.4. W/ ratio <13, likely 2/2 extrarenal losses. Increasing home KCl PO 10meq to 20meq daily. Consider additional workup as outpatient if persists GERD Continue home regimen (2) Sepsis: (3) HTN (hypertension): (4) GERD (gastroesophageal reflux disease): (5) BPH (benign prostatic hyperplasia): (6) LYNSEY (obstructive sleep apnea): Total Time Total Time Spent Total Time Spent (In Minutes): <30 Discharge Plan Discharge Items Patient Disposition: Home - Home Health Services Reason For Visit: SEPTIC JOINT Discharge Diagnosis: septic right prosthetic knee Activity: Per Instructions section Non-emergency contact: Primary Care Provider and Surgeon Call non-emergency contact if: you have any medication questions, your symptoms worsen, your temperature is above 101, your wound has increased redness, your wound has increased drainage and your wound pain has increased Follow-up/Referrals: Ed Griffith DO [Surgeon] - (f/u in 7-10 days) Geo Barker MD [Primary Care Provider] - (hospital discharge f/u within 1 wk) Diet: Regular Addtl Attending Provider Instructions: Patient instructions: Kyrie Mckeon, You were admitted to [facility] for right knee artificial joint infection. You were treated with IV antibiotics and the orthopedic team washed out the join and took out infected tissue, without removing the hardware. You will be discharged home on 6 weeks of IV antibiotics (IV Cefazolin 2g every 8 hours) in addition to oral Rifampin 450 mg tablet twice a day. This will be followed by several months of oral antibiotics w/ possible longer course. Referral has been placed to infectious disease at [place]. This specialist can provide input on the appropri ate treatment. Please follow closely with your primary care provider (see within a week) as he is the one who will follow/refill your IV antibiotics. He will need to check your CBC and CMP labwork once a week while you're on IV antibiotics. Please also follow up with Dr. Griffith's (orthopedic surgery) office in 7-10 days. Rifampin 450 mg tablet by mouth twice a day. If you have intolerable nausea, let your primary doctor know. Take the first dose tonight 02/02/21. Home health will be providing the IV antibiotic and the heparin flush supplies. The prescription for the rifampin and pain medicine has been sent to [facility] in [place]. Low potassium. I have increased your home potassium supplement form 10 meq daily to 20 meq daily. baby aspirin twice a day for prevention of blood clots Miralax (available over the counter) as needed for constipation If you develop any new or worsening symptoms including fever, chills, sweats, chest pain, chest pressure, difficulty breathing, uncontrolled nausea/vomiting, rash, wheezing, passing out or nearly passing out, bleeding, black/bloody bowel movements, or other new or concerning symptoms please call your primary care ph ysician, or call 911 for re-evaluation in the emergency department if you are very concerned. Instructions for PCP (give your PCP and infectious disease doctor a copy of these instructions). 65-year-old male with extensive orthopedic history admitted for worsening swelling of right prosthetic knee for possibly infected prosthetic joint. Needs PCP and orthopedics f/u. Follow CMP and CBC weekly while on antibiotics. 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 Gram stain w/ many polys. Deep wound cultures w/ prelim pansensitive staph aureus. 02/01 transitioned to 2g IV Cefazolin q8h. Discharging home on 2g IV Cefazolin q8h plus 450 mg PO Rifampin BID. - PICC line placed 02/01/21 for outpatient abx, total of 6 wks, tentatively. This will be minimum duration given septic artificial joint w/ retained hardware. Outpatient ID consult (Brad) - Discharging on Ancef 2g IV q8h and PO rifampin 450mg PO BID x 6 wks w/ likely transition to oral abx for total of 6 months therapy or longer. Deferring to infectious disease and ortho for determination. 01/30 deep wound culture prelim few staph aureus. rodriguez sensitive. no anerobes. + low counts of probable skin li. gram stain w/ many polys and rare gram pos cocci. 01/30 posteior capsule R knee w/ rare staph aureus. 01/30 deep fluid aspirate w/ same. 01/29 BC no growth prelim 48 hours, There has not been growth reported at 4 day flavia. 01/29 surface wound culture w/ few staph aureus prelim pansensitive. gram stain w/ few wbcs. Sepsis secondary to prosthetic joint, infection, resolved -At admission, Febrile to 38.0C tmax at admission. Afebrile >72hrs Admission labs: CRP of 24.7, ESR 44. Elevated WBC to 17.97 with neutrophilic predominance, downtrending. Transient hypotension first night, resolved after fluids and has not reoccured. Hypokalemia Persistent 3.1-3.2 despite repletion. urine K 13.9. urine Cr 49.4. W/ ratio <13, likely 2/2 extrarenal losses. Increasing home KCl PO 10meq to 20meq daily. Consider additional workup as outpatient if persists GERD Continue home regimen Addtl Human Resources Office Assistant Provider Instructions: A referral has been placed on your behalf for you to see Dr. Larisa Coppola of infectious disease. She is with [facility] in [place], [place]. They should reach out to you to schedule an appointment. If you do not hear from her office within one week, please call to follow up. Office phone number: [phone]. In the case that Dr. Coppola does not have availability, you can also reach out to [facility] located in [place], #[phone]. Remove wound vac in approximately 1 week, i.e. 02/06/21Thursday. Pending Studies at Discharge: Yes Studies:: final culture results. Stand-Alone Forms: [facility], Smoking Cessation Medications and DC Order Prescriptions: New oxycodone 5 mg tablet 5 mg PO Q8H PRN (Reason: severe pain (scale score 7-10)) Qty: 20 RF: 0 aspirin 81 mg Tablet,Delayed Release (Dr/Ec) 81 mg PO BID 30 Days Qty: 60 RF: 0 heparin, porcine (PF) 10 unit/mL Syringe 50 unit Flush PRN PRN (Reason: IV line flush) 30 Days Qty: 60 RF: 0 cefazolin 1 gram recon soln 2 g IV Q8H 180 Days Qty: 25 RF: 0 rifampin 150 mg capsule 450 mg PO BID 30 Days Qty: 180 RF: 0 Continued tamsulosin 0.4 mg Capsule 0.4 mg PO QAM RF: 0 pantoprazole 40 mg Tablet,Delayed Release (Dr/Ec) 40 mg PO QAM RF: 0 meloxicam 15 mg tablet 15 mg PO QAM RF: 0 gabapentin 300 mg capsule 300 mg PO QAM RF: 0 lisinopril-hydrochlorothiazide 20-25 mg tablet 1 tab PO QAM RF: 0 Changed potassium chloride 10 mEq capsule, extended release 20 meq PO QAM Qty: 60 RF: 0 Discharge Orders: Discharge Order (Routine); Ordered 02/02/21 Ordered By: Richmond Vasquez/Other Patient Handouts: Caring for Your PICC Dc Admission Data Admit Date/Time: 01/29/21 21:34 Attending Provider: Clifton Jarrell Admit Provider: Berkley Cullen Primary Care Provider: Geo Barker Other Providers: Jose Lee ; Sen Weir Other Interventions: Discharge Summary Assessment (RN) Last Done: 02/02/21 14:20 Supervising Physician Co-Signing Physician Notes I personally examined the patient and verified all garcia points of history and exam, discussed case, and agree with decision making with Dr Miranda feeling reasonably well wound vac getting changed no significant acute complaints vitals noted nad heent nc at mmm breathing unlabored no accessory muscles good effort wound vac sponge on knee no surrounding erythema sepsis, septic shock now resolved - related to staph infection septic knee - fortunately improved, continue antibiotics septic knee -MSSAsafe to narrow from vancomycin to cefazolin. Given the complexity of the situation (MSSA knee infection and a prosthetic joint) suspect will need a fairly long duration of antibiotics will likely require longer than 6 mnths and may even require life long suppression due to likely contamination of his hardware. Will discharge him for a 6 week course, and will defer durther courses to his Infectious disease doctor, ORTHO and PCP. otherwise as above Resident Activity Tracking Resident Involvement: Resident Care Provided Care Provided: Adult Hospital Medicine CBC Results Results Complete Blood Count Results: RBC 3.68 M/uL (4.7-6.1) L 02/02/21 WBC 6.66 K/uL (4.8-10.8) 02/02/21 Hgb 11.3 g/dL (14.0-18.0) L 02/02/21 Hct 33.4 % (42-52) L 02/02/21 Plt Count 258 K/uL (130-400) 02/02/21 Home Health Attestation I certify that this patient is under my care and that I, or a physicians bilingual sales assistant working with me, had a face to-face encounter that meets the home health [id number] encounter requirements with this patient. The encounter with the patient was in whole, or in part, for the following medical condition, which is the primary reason for home health care (list medical condition): I certify that, based on my findings, the following services are medically necessary home health services: My clinical findings support the need for the above services because: PT Assessment for Endurance / Balance / Strength Skilled Nsg Assessment Further, I certify that my clinical findings support that this patient is homebound (i.e. absences from home require considerable and taxing effort and are for medical reasons or sabianist services or infrequently or of short duration when for other reasons) because: Assistance of 1 Person for Ambulation/Activities Certification for Home Health Services: Based on the above findings, I certify that this patient is confined to the home and needs intermittent long term care, physical therapy and/or speech therapy or continues to need occupational therapy. The patient is under my care, and I have initiated the establishment of the plan of care. This patient will be followed by a physician who will periodically review the plan of care.
--- NOTE | 2021-02-02 08:34 | Orthopedic Progress Note ---
Date of Service February 02, 2021 Assessment & Plan (1) Prosthetic joint infection: Plan: 66 yo male stable POD #3 s/p I&D, poly change septic right TKA. MSSA on culture 1. Med management- cont IV abx, currently Cefazolin Q8 2. DVT prophylaxis- ASA, SCDs 3. PT/OT 4. D/C planning- home w/ HH, PICC line placed, possible d/c today, waiting for final abx decision Admission and Anticipated Discharge Date Admission Date: January 29, 2021 Subjective Pt without complaints, right knee, complaining more of left shoulder/trapezius pain/spasm Physical Exam Physical Exam: Prevena in place right knee, toes mobile, NVI, calf soft, nontender Results & Data ([facility]) Vital Signs (Past 12 Hours) Vital Signs Temp Pulse Resp BP Pulse Ox 02/02/21 07:34 36.9 C 76 16 99/64 L 96 02/02/21 01:41 36.4 C L 02/01/21 22:55 36.8 C 73 18 98/61 L 95 Laboratory Results 02/02/21 02/01/21 Range/Units 05:49 20:54 Creatinine 0.85 (0.6-1.4) mg/dl Est Cr Clr Drug Dosing 109.3 ml/min Est GFR ( Amer) 106.0 ml/min Est GFR (Non-Af Amer) 91.4 ml/min TSH 1.390 (0.300-4.500) uIu/ml Ur Random Creatinine 49.4 mg/dl Ur Random Potassium 13.9 mmol/L Ur Random Chloride 84 mmol/L Microbiology 01/30/21 16:39 Gram Stain - Final Knee,Right Aerobic and Anaerobic Culture - Preliminary Staphylococcus aureus 01/30/21 16:39 Gram Stain - Final Knee,Right Aerobic and Anaerobic Culture - Preliminary Staphylococcus aureus 01/30/21 Unknown Gram Stain - Final Knee,Right Aerobic and Anaerobic Culture - Preliminary Staphylococcus aureus (1) Prosthetic joint infection Encounter type: initial encounter Qualified Code(s): T84.50XA - Infection and inflammatory reaction due to unspecified internal joint prosthesis, initial encounter
[2021-02-02] MEDS: PANTOprazole 40 MG TAB PO SCH (10:15)
[2021-02-02] MEDS: MULTIVITAMIN TAB PO SCH (10:16)
[2021-02-02] MEDS: LISINOPRIL/HCTZ 20/25MG 1 TAB PO SCH (10:16)
[2021-02-02] MEDS: ASPIRIN 81 MG ECTAB PO SCH (10:16)
[2021-02-02] MEDS: DOCUSATE SODIUM 100 MG CAP PO SCH (10:16)
[2021-02-02] MEDS: TAMSULOSIN HCL 0.4 MG CAP PO SCH (10:16)
[2021-02-02 11:46] LABS: Hematocrit (blood only) 33.4 % (42-52); Hemoglobin 11.3 g/dL (14.0-18.0); Mean Corpuscular Hemoglobin 30.7 pg (25-34); Mean Corpuscular Hgb Conc 33.8 g/dL (32-36); Mean Corpuscular Volume 90.8 fL (80-100); Mean Platelet Volume 9.2 fL (7.4-10.4); Platelet Count 258 K/uL (130-400); RDW Coefficient of Variation 13.5 % (11.5-14.5); RDW Standard Deviation 45.1 fL (36.4-46.3); Red Blood Count 3.68 M/uL (4.7-6.1); White Blood Count 6.66 K/uL (4.8-10.8)
[2021-02-02 12:10] LABS: ALC (manual) 0.99 K/uL (1.2-3.4); ANC (manual) 4.98 K/uL (1.4-6.5); Basophils # (manual) 0.06 K/uL (0-0.2); Basophils % (manual) 0.9 %; Eosinophils # (manual) 0.06 K/uL (0-0.5); Eosinophils % (manual) 0.9 %; Lymphocytes # (manual) 0.99 K/uL (1.2-3.4); Lymphocytes % (manual) 14.8 %; Monocytes # (manual) 0.52 K/uL (0.11-0.59); Monocytes % (manual) 7.8 %; Myelocytes # (manual) 0.06 K/uL (0-0); Myelocytes % (manual) 0.9 %; Neutrophils # (manual) 4.98 K/uL (1.4-6.5); Neutrophils % (manual) 74.7 %
[2021-02-02 12:11] LABS: BUN Creatinine Ratio 28.3 (10-20); Calcium 8.6 mg/dl (8.5-10.1); Creatinine Clr Calc Pharmacy 113.3 ml/min; Est GFR (African American) 107.6 ml/min; Est GFR (Non-African American) 92.8 ml/min; Magnesium 2.2 mg/dl (1.8-2.4); Potassium 3.2 mmol/L (3.5-5.1)
[2021-02-02] MEDS ORDERED: ceFAZolin 1000MG 1,000 MG/7.5 ML SYR IV ONE (12:40)
--- NOTE | 2021-02-04 14:50 | Billing Data ---
Date of Service February 02, 2021 Coding Level of Care Code D/C DAY MANAGEMENT >30 MINS Time Spent (min) 45
== END 2021-02-02 15:20 | disposition home health service (06) | DRG 469 ==
LOC: ED 15:01 → SUATTDRO 21:34 → 3W 21:34